=== PATIENT | female | born 1965 | race Caucasian/White ===

== ENCOUNTER 2020-09-13 14:01 | Inpatient (IN) | payer OTHER, SELFPAY ==
[2020-09-13 14:11] VITALS: BP 112/54; PULSE 64; RESP 14; TEMP 36.6; O2SAT 99; BMI 30.1
--- NOTE | 2020-09-13 14:24 | ED.PSYCH ---
HPI - Psych General Chief Complaint: Psychiatric Symptoms Stated Complaint: med reaction-crisis Time Seen by Provider: 09/13/20 14:06 Source: patient Mode of arrival: ambulatory History of Present Illness HPI Narrative: 55-year-old female with a past medical history of carpal tunnel, depression, presenting to the ED complaining of increased depression and suicidal ideations with plan to slit her wrists in the bath tub x a few weeks. Was urged to come to ED by her therapist. Reports recently discharge from her psychiatrist, found a new one who changed her medications. States was on Citalopram which was d/c'ed and started on Seroquel, which makes her excessively lethargic. Admits to smoking marijuana daily. Denies other illicit drugs or EtOH. Denies fever, chills, cough, chest pain, shortness of breath, HI complaint: suicidal ideation and feels depressed Related Data Home Medications Medication Instructions Recorded Confirmed citalopram 1 tab PO DAILY 09/13/20 09/13/20 lithium carbonate 3 cap PO BEDTIME 09/13/20 09/13/20 quetiapine 0.5 tab PO BID 09/13/20 09/13/20 Allergies Allergy/AdvReac Type Severity Reaction Status Date / Time No Known Allergies Allergy Verified 09/13/20 14:47 Review of Systems Review of Systems: Constitutional: No Fever, No Chills Cardiovascular: No Chest Pain, No SOB Respiratory: No Cough, No Dyspnea Gastrointestinal: + Nausea, No Vomiting, No Abdominal pain Musculoskeletal: No joint pain, No Myalgias, No Joint Swelling Skin: No Skin Lesions, No rash Psych: + Anxiety, + Depression, +SI, No HI/AH/VH, No Social Issues Yes all other systems are reviewed and are negative [facility] Past Medical History Attestation statement: The following information was validated with the patient. Medical History (Updated 09/13/20 @ 15:03 by HAY Carreno) Carpal tunnel syndrome Dental caries Depression Surgical History (Updated 09/13/20 @ 14:18 by Tommy Holder) H/O tubal ligation Social History Social History Alcohol intake: former Smoking Status: Former smoker Use of substances other than those prescribed or required for medical reasons: Yes Substance Use Type: Marijuana Substance Use Frequency: Daily Advance Directives: No Advance Directives Information Provided: No Physical Exam Vital Signs: Vital Signs: Last Vital Signs Temp 98 F 09/13/20 14:11 Pulse 64 09/13/20 14:11 Resp 14 09/13/20 14:11 BP 112/54 L 09/13/20 14:11 Pulse Ox 99 09/13/20 14:11 Body Mass Index 30.1 Const: General: cooperative, healthy appearing and comfortable Orientation/consciousness: patient oriented x3 Limitations: no limitations HENMT: Head: Yes normal to inspection Ears: hearing grossly normal bilaterally General nose exam: Normal external nose present Face and sinus: Yes normal facial exam Eyes: General: appearance normal, both eyes and all related structures EOM: EOMs intact bilaterally Neck: Neck: Yes normal visual inspection and Yes no meningeal signs Resp: Effort & Inspection: normal respiratory effort Cardio: Rate: regular rate GI: Inspection: Yes normal to inspection Skin: Rashes: no rashes Wounds: no wounds Neuro: General: patient oriented x3, gait normal, tone normal, moves all extremities and no meningeal signs Gait exam (Neuro): Normal gait present Extrem: General: Yes normal to inspection Psych: Appearance: grossly normal Speech and movement: Normal speech and movement present Affect: Sad affect present Attitude: cooperative Thought process: Normal thought process present Thought content: Suicidality present and no homicidality Insight: Good insight present (Psych) Judgement: Good judgement present (Psych) Course Course Course Narrative: -potassium slightly elevated at 5.3. P.o. Kayexalate ordered. Labs otherwise unremarkable -tox screen positive for THC -1800-- ED care transferred to ALYSSA Yap pending N consult MDM - Psych MDM Narrative Medical decision making narrative: 55-year-old female with a past medical history of carpal tunnel, depression, presenting to the ED complaining of increased depression and suicidal ideations with plan to slit her wrists in the bath tub x a few weeks. On exam VSS, NAD/well-appearing, physical exam as above. Concern for SI/depression and recent medication changes. Rule out organic causes Plan: Labs, JAMISON, crisis evaluation Medical Records Attestation: I reviewed the patient's medical records. Lab Data Attestation: I reviewed the patient's lab results. Result diagrams: 09/13/20 15:47 09/13/20 15:47 Labs: Lab Results 09/13/20 09/13/20 09/13/20 Range/Units 15:47 15:47 15:47 WBC 7.0 (4.8-10.8) X10*3/uL RBC 3.96 L (4.20-5.50) X10*6/uL Hgb 11.9 L (12.0-16.0) g/dl Hct 37.1 (37-47) % MCV 93.7 (80-98) fL MCH 30.1 (27.0-33.0) pg MCHC 32.1 (31.0-35.0) g/dl RDW 12.8 (11.0-16.0) % Plt Count 266 (160-400) X10*3/uL MPV 10.9 (9.4-12.3) fL Immature Gran % (Auto) 0.3 (0.0-0.4) % Neut % (Auto) 56.4 (45-73) % Lymph % (Auto) 28.5 (20-40) % Panola % (Auto) 8.3 (2-11) % Eos % (Auto) 5.8 H (0-4) % Baso % (Auto) 0.7 (0-2) % Lymph # (Auto) 2.0 (1.2-4.9) X10*3/uL Panola # (Auto) 0.6 (0.1-1.2) X10*3/uL Eos # (Auto) 0.4 (0.0-0.4) X10*3/uL Baso # (Auto) 0.1 (0.0-0.2) X10*3/uL Abs Immat Gran (auto) 0.02 (0.00-0.03) X10*3/uL Absolute Neuts (auto) 3.9 (2.0-8.3) X10*3/uL Absolute Nucleated RBC 0.000 (0.0-0.012) X10*3/uL Nucleated RBC % (auto) 0.0 (0.0-0.2) /100WBC Sodium 142 (135-145) mmol/L Potassium 5.3 H (3.3-5.1) mmol/L Chloride 107 (96-108) mmol/L Carbon Dioxide 31 H (22-29) mmol/L Anion Gap 9 L (12-20) BUN 11 (9-16) mg/dL Creatinine 0.75 (0.5-1.4) mg/dL Estim Creat Clear Calc 85.3 Estimated GFR > 60 Random Glucose 84 (60-115) mg/dL Calcium 9.6 (8.4-10.2) mg/dL Total Bilirubin 0.4 (0.0-1.0) mg/dL Direct Bilirubin < 0.2 (0.0-0.5) mg/dL AST 15 (5-31) U/L ALT 10 (0-31) U/L Alkaline Phosphatase 78 (39-117) U/L Total Protein 6.7 (6.5-8.0) g/dL Albumin 4.1 (3.5-5.0) g/dL Urine Opiates Screen (Not Detect) Ur Barbiturates Screen (Not Detect) Ur Phencyclidine Scrn (Not Detect) Ur Amphetamines Screen (Not Detect) U Benzodiazepines Scrn (Not Detect) Kurten (0.60-1.20) mmol/L Urine Cocaine Screen (Not Detect) U Marijuana (THC) Screen (Not Detect) COVID-19 (FRANK) Negative (Negative) COVID-19 Clin Com See Note 09/13/20 09/13/20 Range/Units 15:47 15:47 WBC (4.8-10.8) X10*3/uL RBC (4.20-5.50) X10*6/uL Hgb (12.0-16.0) g/dl Hct (37-47) % MCV (80-98) fL MCH (27.0-33.0) pg MCHC (31.0-35.0) g/dl RDW (11.0-16.0) % Plt Count (160-400) X10*3/uL MPV (9.4-12.3) fL Immature Gran % (Auto) (0.0-0.4) % Neut % (Auto) (45-73) % Lymph % (Auto) (20-40) % Panola % (Auto) (2-11) % Eos % (Auto) (0-4) % Baso % (Auto) (0-2) % Lymph # (Auto) (1.2-4.9) X10*3/uL Panola # (Auto) (0.1-1.2) X10*3/uL Eos # (Auto) (0.0-0.4) X10*3/uL Baso # (Auto) (0.0-0.2) X10*3/uL Abs Immat Gran (auto) (0.00-0.03) X10*3/uL Absolute Neuts (auto) (2.0-8.3) X10*3/uL Absolute Nucleated RBC (0.0-0.012) X10*3/uL Nucleated RBC % (auto) (0.0-0.2) /100WBC Sodium (135-145) mmol/L Potassium (3.3-5.1) mmol/L Chloride (96-108) mmol/L Carbon Dioxide (22-29) mmol/L Anion Gap (12-20) BUN (9-16) mg/dL Creatinine (0.5-1.4) mg/dL Estim Creat Clear Calc Estimated GFR Random Glucose (60-115) mg/dL Calcium (8.4-10.2) mg/dL Total Bilirubin (0.0-1.0) mg/dL Direct Bilirubin (0.0-0.5) mg/dL AST (5-31) U/L ALT (0-31) U/L Alkaline Phosphatase (39-117) U/L Total Protein (6.5-8.0) g/dL Albumin (3.5-5.0) g/dL Urine Opiates Screen Not Detected (Not Detect) Ur Barbiturates Screen Not Detected (Not Detect) Ur Phencyclidine Scrn Not Detected (Not Detect) Ur Amphetamines Screen Not Detected (Not Detect) U Benzodiazepines Scrn Not Detected (Not Detect) Kurten 0.72 (0.60-1.20) mmol/L Urine Cocaine Screen Not Detected (Not Detect) U Marijuana (THC) Screen POSITIVE H (Not Detect) COVID-19 (FRANK) (Negative) COVID-19 Clin Com Discharge Plan Discharge Clinical Impression: Depression, Suicidal ideations Prescriptions: No Action quetiapine 25 mg tablet 0.5 tab PO BID RF: 0 citalopram 20 mg tablet 1 tab PO DAILY RF: 0 lithium carbonate 300 mg capsule 3 cap PO BEDTIME RF: 0
--- NOTE | 2020-09-13 15:01 | PC.NURSE ---
PT reports that she has had a few medication changes that are not helping her depression. Pt reports that she lost her prescriber and after finding a new one was placed on seroquel, PT states that the seroquel is making her too sedated. PT reports the medication that is the most helpful for her is lithium that she has been on for some time and is compliant with. PT is irritable but cooperative, pt states she just wants help.
--- NOTE | 2020-09-13 15:01 | MHC.CARE ---
Patient's therapist called this morning, said patient has Bipolar D/O undergoing medication changes and struggling, she is recommending inpatient hospitalization. Renetta Perez [phone] can be reached after 6pm for additional information if needed.
[2020-09-13 15:54] LABS: MANUAL DIFF FLAG NO
[2020-09-13 15:57] LABS: Basophils Absolute Auto 0.1 X10*3/uL (0.0-0.2); Basophils Percent Auto 0.7 % (0-2); Eosinophils Absolute Auto 0.4 X10*3/uL (0.0-0.4); Eosinophils Percent Auto 5.8 % (0-4); Hematocrit 37.1 % (37-47); Hemoglobin 11.9 g/dl (12.0-16.0); Imm Gran Abs Auto 0.02 X10*3/uL (0.00-0.03); Imm Gran Pct Auto 0.3 % (0.0-0.4); Lymphocytes Percent Auto 28.5 % (20-40); Mean Corpuscular HGB Conc 32.1 g/dl (31.0-35.0); Mean Corpuscular Hemoglobin 30.1 pg (27.0-33.0); Mean Corpuscular Volume 93.7 fL (80-98); Mean Platelet Volume 10.9 fL (9.4-12.3); Monocytes Absolute Auto 0.6 X10*3/uL (0.1-1.2); Monocytes Percent Auto 8.3 % (2-11); Neutrophils Absolute Auto 3.9 X10*3/uL (2.0-8.3); Neutrophils Percent Auto 56.4 % (45-73); Platelet Count 266 X10*3/uL (160-400); Red Blood Count 3.96 X10*6/uL (4.20-5.50); Red Cell Distribution Width 12.8 % (11.0-16.0)
[2020-09-13 16:14] LABS: COVID-19 Test Negative (Negative); IDNOW Serial# 9DD0AD1C
[2020-09-13 16:15] LABS: Lithium 0.72 mmol/L (0.60-1.20)
[2020-09-13 16:24] LABS: Amphetamine Screen Urine Not Detected (Not Detect); Barbiturates, Urine Not Detected (Not Detect); Benzodiazepines Screen Urine Not Detected (Not Detect); Cannabinoid Screen Urine POSITIVE (Not Detect); Cocaine Screen Urine Not Detected (Not Detect); Opiate Screen Urine Not Detected (Not Detect); Phencyclidine Screen Urine Not Detected (Not Detect)
[2020-09-13 16:32] LABS: Alanine Aminotransferase 10 U/L (0-31); Albumin Level 4.1 g/dL (3.5-5.0); Alkaline Phosphatase 78 U/L (39-117); Anion Gap 9 (12-20); Aspartate Amino Transferase 15 U/L (5-31); Bilirubin Direct < 0.2 mg/dL (0.0-0.5); Bilirubin Total 0.4 mg/dL (0.0-1.0); Blood Urea Nitrogen 11 mg/dL (9-16); Calcium 9.6 mg/dL (8.4-10.2); Carbon Dioxide 31 mmol/L (22-29); Chloride 107 mmol/L (96-108); Creatinine Clr Calc Pharmacy 85.3; Estimated Glomerular Filt Rate > 60; Glucose Random 84 mg/dL (60-115); Potassium 5.3 mmol/L (3.3-5.1); Sodium 142 mmol/L (135-145); Total Protein 6.7 g/dL (6.5-8.0)
[2020-09-13 18:12] VITALS: BP 104/69; PULSE 62; RESP 20; TEMP 36.6; O2SAT 97
[2020-09-13] MEDS: Sodium Polystyrene Sulfon/Sorb 15 GM/60 ML ORAL.SUSP PO (18:14)
[2020-09-13] MEDS: LORazepam 1 MG TABLET PO (19:11)
--- NOTE | 2020-09-13 19:44 | PC.NURSE ---
Report received. PT was anxious and being set off by other patients in the pod. PT able to be calmed and then received a one time dose of Ativan. PT is in the room talking with CARE team.
[2020-09-13] MEDS: QUEtiapine Fumarate 25 MG TABLET 12.5 MG PO (20:52)
[2020-09-13] MEDS: Lithium Carbonate 300 MG CAPSULE 900 MG PO (20:53)
[2020-09-13] MEDS: Escitalopram Oxalate 10 MG TABLET PO (20:54)
--- NOTE | 2020-09-13 21:58 | MHC.CARE ---
CARE team evaluated pt with plan for inpt psychiatric admission. Pt will remain in ED until placement is secured. Pt is agreeable for admission, however has been placed on a section 12 due to level of risk for harm to self evidenced by an endorsement of suicidal ideation with plan.
[2020-09-14 08:30] VITALS: BP 97/55; PULSE 63; RESP 16; TEMP 36.6; O2SAT 97
[2020-09-14] MEDS: QUEtiapine Fumarate 25 MG TABLET 12.5 MG PO ×2 (09:04→18:49)
[2020-09-14] MEDS: LORazepam 1 MG TABLET 2 MG PO ×2 (09:48→18:44)
--- NOTE | 2020-09-14 09:48 | PC.NURSE ---
pt very agitated said she will take ativan by mouth, ativan 2mg ordered but pt will only take ativan 1mg at this time, she states she only takes ativan 1mg at home
[2020-09-14 10:00] VITALS: RESP 16
[2020-09-14 13:51] VITALS: RESP 16
--- NOTE | 2020-09-14 13:52 | PC.NURSE ---
pt continues to sleep at this time. resp even and unlabored. pt awaiting bed on m5 told no bed available today.
--- NOTE | 2020-09-14 14:46 | MHC.CARE ---
CARE team called [facility] at 1400 to amend the auth as a bed is not available at this time. By 1445 t/w was informed that this cannot be amended based on an initial auth secured for placement to [facility] today. There is no female bed available today and this auth will now require further review from the team at [facility] per Lorraine who stated CARE team will be called back later today when resolved or with an answer.
--- NOTE | 2020-09-14 14:58 | PC.NURSE ---
Report received. Pt in bed, asleep at current. No signs of distress. Respirations even and unlabored.
--- NOTE | 2020-09-14 17:12 | PC.NURSE ---
Pt resting in bed at current, no complaints at this time
--- NOTE | 2020-09-14 18:33 | PC.NURSE ---
Pt demanding HS meds be given to her immediately, increasing agitation when told the RN would have to ask the provider. Swearing at RN, calling RN a bitch , demanding ativan. Provider, Marely, notified.
[2020-09-14] MEDS: Lithium Carbonate 300 MG CAPSULE 900 MG PO (18:43)
[2020-09-14] MEDS: Escitalopram Oxalate 10 MG TABLET PO (18:44)
--- NOTE | 2020-09-14 19:03 | MHC.CARE ---
[facility] rehabilitation caseworker calls at 1650. He states that this issue with pt's auth is still not resolved. CARE Team explains that there is no bed available to pt at this time. CARE Team will call shaheen back after mental status update this evening. [phone]
--- NOTE | 2020-09-14 21:00 | PC.NURSE ---
Patient in bed appears resting quietly, no distress at this time reported, patient was agitated after seeing care team, will continue to monitor.
[2020-09-15] VITALS (8 sets, daily range): BP systolic 96–101; BP diastolic 55–63; PULSE 63–70; RESP 17–22; TEMP 36.1–37.1; O2SAT 97–98
--- NOTE | 2020-09-15 07:10 | PC.NURSE ---
Report received from CHACHO Oliver. Pt resting, resp unlabored
--- NOTE | 2020-09-15 07:57 | PC.NURSE ---
Pt awake, very irritable, swearing, stating that this is not 'f...therapeutic' and that she has been here since yesterday with nothing to do. Pt offered coloring activities, jigsaw puzzles, etc. Pt declined all at this time.
[2020-09-15] MEDS: QUEtiapine Fumarate 25 MG TABLET 12.5 MG PO ×2 (08:21→20:36)
--- NOTE | 2020-09-15 13:29 | PC.NURSE ---
patient was offered ativan pt refused ativan and stated she did not want it at this time. patient was also asking for her belongings- specifically her cell phone and chap stick, pt stated I am a grown up and I am able to use these items patient became frustrated and went back to her room yelling this is NOT therapeutic .
[2020-09-15] MEDS: LORazepam 1 MG TABLET 2 MG PO ×2 (14:29→20:37)
--- NOTE | 2020-09-15 14:49 | PC.NURSE ---
Pt continues to be very agitated, screaming in her room, swearing at staff, stating 'this is torture, this is not therapeutic, you all should be ashamed of yourself.' Pt demanding coffee, phone, etc, screaming at staff when unable to get what she wants when she wants. care team called to update re ;pt statements and behavior.
[2020-09-15] MEDS: LORazepam 1 MG TABLET PO (16:10)
[2020-09-15] MEDS: QUEtiapine Fumarate 50 MG TABLET PO (16:10)
--- NOTE | 2020-09-15 16:54 | PC.NURSE ---
Pt less agitated. M5 aware of psych consult order but life consultant has left- will await call from electronic heat seal operator MD. Pt aware.
--- NOTE | 2020-09-15 17:56 | P.EN_ITS ---
Event Note Date of Service: 09/15/20 Event Note: PATIENT'S CASE REVIEWED WITH PSYCHIATRIC NURSE IN THE [facility]. PATIENT WITH BIPOLAR DISORDER SHAWN IRRITABILITY AND AGGRESSION. PATIENT AGREEABLE TO STARTING DEPAKOTE 250 B.I.D. LIVER FUNCTION TESTS WITHIN NORMAL LIMITS. WILL ADD SEROQUEL 25 Q.2H P.R.N. ANXIETY AGITATION LITHIUM LEVEL 0.7 WOULD HOLD CITALOPRAM SECONDARY TO WHAT APPEARS TO BE MANIC AGITATION AND INSTABILITY. PATIENT GOOD CANDIDATE FOR INPATIENT ADMISSION
--- NOTE | 2020-09-15 17:59 | PC.NURSE ---
Spoke with Dr. Espinal- medications ordered, pt aware and in agreement with plan. Pt currently resting, pt mildly drowsy but easily awakened, pleasant.
--- NOTE | 2020-09-15 18:15 | MHC.CARE ---
CARE Team speaks with Mal from [facility], . Mal reports that [facility] has not started a bedsearch and will not be able to start one until tomorrow. He reports that if pt is placed tomorrow, 09/16/20, they can update the current authorization, however, if pt is not placed 09/16/20, a new authorization will need to be completed.
--- NOTE | 2020-09-15 18:36 | PC.NURSE ---
Pt awake briefly, returned to room, no concers reported, resting, resp unlabored.
--- NOTE | 2020-09-15 19:01 | PC.NURSE ---
Spoke w/ Dr Espinal re: lab order depakote nlevel- per Dr Espinal because pt is not taking Depakote currently, lab does not need to be drawn.
[2020-09-15] MEDS: Divalproex Sodium ER 250 MG TAB.ER.24H PO (20:35)
[2020-09-15] MEDS: Lithium Carbonate 300 MG CAPSULE 900 MG PO (20:36)
[2020-09-15] MEDS: QUEtiapine Fumarate 25 MG TABLET PO (20:37)
--- NOTE | 2020-09-15 20:58 | PC.NURSE ---
Patient compliant with her HS PO medication, VSS, Care team completed MSU, no change in disposition, no distress reported, will continue to monitor.
--- NOTE | 2020-09-16 00:43 | MHC.CARE ---
Bedsearch Note: An extensive state wide bedsearch has been exhausted with the following results: [facility] Full [facility] Full, anticipating 2 d/c tomorrow, charge preparation technician, Fidelina aware of pt boarding in ED [facility] Full [facility] Full [facility] Full [facility] Full [facility] Full [facility]- not currently accepting [place] residents [facility] Full [facility] Full [facility] Full [facility] Full [facility]- referral faxed, confirmed fax was recieved. CARE Team will follow up with them to see if they can accept pt. [facility] Full per USMAN. left [facility] Full [facility]- referral faxed, confirmed fax was received, reviewing for admissions tomorrow, CARE Team will call to follow up [facility] Full per KATALINA, left [facility] Full [facility] [id number] Full [facility] Full per KATALINA, left [facility] Full [facility] Full [facility] Full [facility] Full [facility] Full [facility] Full [facility] Full [facility]. Full [facility] Full [facility] Full [facility] Full [facility] Full [facility] Full anjel, yun w/ unit, they expect d/c tomorrow, CARE Team to call and follow up in [facility] Full [facility] Full [facility] Full [facility] Full [facility] Full, no adult d/c tomorrow [facility] Full [facility] Full
--- NOTE | 2020-09-16 07:15 | PC.NURSE ---
Report received from CHACHO Oliver. Pt resting, resp unlabored.
[2020-09-16 08:00] VITALS: RESP 18
[2020-09-16] MEDS: QUEtiapine Fumarate 25 MG TABLET 12.5 MG PO ×2 (09:30→22:01)
[2020-09-16] MEDS: Divalproex Sodium ER 250 MG TAB.ER.24H PO ×2 (09:32→22:01)
[2020-09-16 12:37] VITALS: BP 116/60; PULSE 75; RESP 16; TEMP 36.7; O2SAT 97
--- NOTE | 2020-09-16 12:44 | PC.NURSE ---
Pt pleasant, apologetic for behavior yesterday. Reports feeling 'sedated ' from medications given but feels this is not a concern at this time. Pt aware that she has been admitted to , no concerns reported.
--- NOTE | 2020-09-16 13:10 | PC.NURSE ---
Report given to CHACHO Wylie M5.
[2020-09-16] MEDS: LORazepam 1 MG TABLET 2 MG PO (14:20)
--- NOTE | 2020-09-16 14:26 | PC.NURSE ---
Pt approached staff, tearful , requesting ativan for a sudden increase in anxiety. Pt states she was witching the news and became discouraged, stating 'everyone lies.'
--- NOTE | 2020-09-16 15:12 | PC.NURSE ---
Care team in to transfer pt to M5. Pt alert,l coopertaive w/ transfer. No concerns reported.
[2020-09-16 17:10] VITALS: BP 120/60; PULSE 65; TEMP 36.6
[2020-09-16] MEDS: QUEtiapine Fumarate 25 MG TABLET PO (17:35)
[2020-09-16] MEDS: Lithium Carbonate 300 MG CAPSULE 900 MG PO (22:01)
--- NOTE | 2020-09-17 00:37 | PC.ADMIT ---
A white female, aged 55 years,[facility] at 1455 following referral from CARE Team and [facility]. Pt has no previous admissions here, but has past history of past admissions for medication stabilization. Pt presented to [facility] ED at recommendation of her therapist secondary to worsening symptoms of depression over the past several months taht have been exacerbated by a recent med change. Pt has had a leave of absence from work since June 2020 due to increased irritability and lashing out verbally at co-workers and customers. Pt endorsed suicidal ideation in ED with a plan but without intent. Pt reports hypersomnia, no motivation, decreased appetite, decreased frustration tolerance and increased irritability. Pt was tearful and labile during assessment in ED. Pt expressed remorse for behavior toward staff in the ED and wanted to say she was sorry. Pt has a psychiatrist and a therapist in the community. This Truck Driver Rubbish Collector (DARIN) met with pt briefly in kitchen around 1700. Pt was labile, became agitated and angry. TW was informing pt of her legal rights in regard to a Conditional Voluntary admission and how to revoke that with a 3-day notice. Pt became very angry, said she was triggered , that TW was not listening to her and called TW a misogynist . Pt stated I don't trust you . Pt asked for PRN medications, but refused to accept them from TW; PRN seroquel was administered by another RN with some good effect. TW attempted to meet again with pt at 1920. Pt continued to refuse to speak with TW. Pt was willing to take HS scheduled medications from another nurse. Pt expressed to other staff she does not have SI at this time and can seek out staff for help. Pt works at a marijuana dispensary and uses marijuana daily. JAMISON was positive only for marijuana. Medical issues include: carpal tunnel and dental issues, history of tubal ligation. Pt was put on 5 minute safety checks with an unlocked bathroom upon arrival. [id number] done and admission orders obtained. Pt is resting in room at this time.
[2020-09-17] MEDS: LORazepam 1 MG TABLET 2 MG PO (01:22)
[2020-09-17] MEDS: hydrOXYzine HCL 25 MG TABLET PO (01:22)
[2020-09-17] MEDS: Acetaminophen 325 MG TABLET 650 MG PO (01:22)
[2020-09-17 06:05] VITALS: BP 110/67; PULSE 64; RESP 16; TEMP 36.3; O2SAT 99
[2020-09-17] MEDS: QUEtiapine Fumarate 25 MG TABLET 12.5 MG PO (08:56)
[2020-09-17] MEDS: Divalproex Sodium ER 250 MG TAB.ER.24H PO ×2 (09:01→20:35)
[2020-09-17 09:43] LABS: Free T4 (Free Thyroxine) 0.83 ng/dL (0.71-1.85); Thyroid Stimulating Hormone 1.93 uIU/mL (0.32-4.0)
[2020-09-17 18:00] VITALS: BP 123/54; PULSE 73; TEMP 36.3
[2020-09-17] MEDS: LORazepam 1 MG TABLET PO (18:18)
[2020-09-17] MEDS: QUEtiapine Fumarate 50 MG TABLET PO (20:35)
[2020-09-17] MEDS: Lithium Carbonate 300 MG CAPSULE 900 MG PO (20:35)
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
[2020-09-18 06:10] VITALS: BP 100/59; PULSE 71; RESP 16; TEMP 36.6; O2SAT 98
[2020-09-18] MEDS: Divalproex Sodium ER 250 MG TAB.ER.24H PO (08:50)
[2020-09-18 09:09] LABS: Lithium 1.18 mmol/L (0.60-1.20)
[2020-09-18 09:19] LABS: Alanine Aminotransferase 9 U/L (0-31); Albumin Level 4.2 g/dL (3.5-5.0); Alkaline Phosphatase 73 U/L (39-117); Anion Gap 10 (12-20); Aspartate Amino Transferase 13 U/L (5-31); Bilirubin Total 0.5 mg/dL (0.0-1.0); Blood Urea Nitrogen 13 mg/dL (9-16); Calcium 9.4 mg/dL (8.4-10.2); Carbon Dioxide 29 mmol/L (22-29); Chloride 109 mmol/L (96-108); Cholesterol 278 mg/dL; Creatinine Clr Calc Pharmacy 85.3; Estimated Glomerular Filt Rate > 60; Glucose Fasting 82 mg/dL (60-99); HDL Cholesterol 59 mg/dL; LDL Cholesterol Calculated 207 mg/dl; Potassium 4.1 mmol/L (3.3-5.1); Sodium 144 mmol/L (135-145); Total Protein 6.8 g/dL (6.5-8.0); Triglycerides 63 mg/dL
[2020-09-18 09:37] LABS: Valproate 45.8 mcg/mL (50.0-100.0)
--- NOTE | 2020-09-18 13:28 | HO.PSYCHPN ---
Subjective Subjective Date of Service: 09/18/20 Reason For Visit: Major Depression R/O Bipolar Disorder Subjective Notes: Conditional Voluntary Interim History: Pt has been less reactive denies active si gives hx of add and reactivity quite sedated in the am Medication Compliance: Yes Side effects from medications: Yes Mental Status Exam Mental Status Exam Patient Appearance: Appropriate Patient Orientation: Person, Place, Time and Situation Level of Consciousness: Awake Patient Behavior: Appropriate Mood Description: Depressed, Anxious and Apprehensive Affect Description: Depressed Ability to Follow Directions: Excellent Speech Pattern: Appropriate Memory Description: Intact Hallucinations: None Delusions: Not Present Thought Process: Intact Thought Content: positive for Suicidal Ideation (denies active thoughts ) and negative for Homicidal Ideation Depressive Symptoms: Increased Anxiety, Diff. Making Decisions, Difficulty Sleeping, Significant Weight Loss, Thoughts of /Suicide and Difficulty Concentrating Abnormal Motor Activity Signs and Symptoms: Agitation Judgement and Insight: improved insight Diagnostics Vital Signs (24Hr): Vital Signs - 24 hr 09/17/20 18:00 09/18/20 06:10 Temperature 97.4 F 98 F Pulse Rate 73 71 Respiratory Rate 16 Blood Pressure 123/54 L 100/59 L Pulse Oximetry 98 Body Mass Index 30.1 Labs Results: 09/13/20 15:47 09/18/20 08:27 Labs: Laboratory Results - last 48 hr 09/17/20 09/18/20 09/18/20 08:28 08:27 08:27 Sodium 144 Potassium 4.1 D Chloride 109 H Carbon Dioxide 29 Anion Gap 10 L BUN 13 Creatinine 0.75 Estim Creat Clear Calc 85.3 Estimated GFR > 60 Fasting Glucose 82 Calcium 9.4 Total Bilirubin 0.5 AST 13 ALT 9 Alkaline Phosphatase 73 Total Protein 6.8 Albumin 4.2 Triglycerides 63 Cholesterol 278 LDL Cholesterol, Calc 207 HDL Cholesterol 59 TSH 1.93 Free T4 0.83 Valproic Acid 45.8 L [place] 1.18 Medications Medications Current Medications Generic Name Dose Route Start Last Admin Trade Name Freq PRN Reason Stop Dose Admin Acetaminophen 650 mg 09/16/20 14:45 09/17/20 01:22 Acetaminophen 325 Mg Tablet PO 650 mg Q6H PRN Administration Headache/Pain Mild Scale (1-3) Al Hydroxide/Mg Hydroxide 30 ml 09/16/20 14:45 Magnesium Hydrox/Alum Hydrox 30 Ml Oral.Susp PO Q6H PRN Heartburn/Nausea Divalproex Sodium 500 mg 09/18/20 21:00 Divalproex Sodium 500 Mg Tablet.Dr PO BEDTIME PATSY Hydroxyzine HCl 25 mg 09/16/20 14:45 09/17/20 01:22 Hydroxyzine Hcl 25 Mg Tablet PO 25 mg BEDTIME PRN Administration Anxiety [place] Carbonate 900 mg 09/13/20 21:00 09/17/20 20:35 [place] Carbonate 300 Mg Capsule PO 900 mg BEDTIME PATSY Administration Lorazepam 1 mg 09/17/20 15:38 09/17/20 18:18 Lorazepam 1 Mg Tablet PO 1 mg Q6H PRN Administration anxiety Magnesium Hydroxide 30 ml 09/16/20 14:45 Milk Of Magnesia 30 Ml Oral.Susp PO DAILY PRN Constipation Quetiapine Fumarate 25 mg 09/15/20 17:51 09/16/20 17:35 Quetiapine Fumarate 25 Mg Tablet PO 25 mg Q2H PRN Administration Anxiety Quetiapine Fumarate 25 mg 09/18/20 21:00 Quetiapine Fumarate 25 Mg Tablet PO BEDTIME PTASY Trazodone HCl 50 mg 09/16/20 14:45 Trazodone Hcl 50 Mg Tablet PO BEDTIME PRN Insomnia Allergies Allergies Allergy/AdvReac Type Severity Reaction Status Date / Time No Known Allergies Allergy Verified 09/13/20 14:47 Assessment & Plan Assessment & Plan (1) Bipolar II disorder, severe, depressed, with anxious distress: Status: Acute Code(s): F31.81 - Bipolar II disorder Assessment and Plan: lower seroquel change depakote to all hs consider strattera monitor safety Greater than 50% of the session was spent on counseling and/or coordination of care Reason for contiued inpatient stay Substantial Risk for: harm to self
[2020-09-18] MEDS: LORazepam 1 MG TABLET PO (17:11)
[2020-09-18 18:00] VITALS: BP 105/57; PULSE 72; TEMP 36.3
[2020-09-18] MEDS: QUEtiapine Fumarate 25 MG TABLET PO ×2 (18:29→20:05)
[2020-09-18 19:17] LABS: Influenza A PCR NEGATIVE (Negative); Influenza B PCR NEGATIVE (Negative); Resp Syncy Virus RNA Qual PCR NEGATIVE (Negative); SARS COV2 PCR INHOUSE NEGATIVE (Negative)
[2020-09-18] MEDS: Divalproex Sodium 500 MG TABLET.DR PO (19:56)
[2020-09-18] MEDS: Betamethasone Dip Aug 0.05% Cr 15 GM TUBE 1 APPL TOPICAL (19:56)
[2020-09-18] MEDS: Lithium Carbonate 300 MG CAPSULE 900 MG PO (19:56)
[2020-09-18] MEDS: traZODone HCL 50 MG TABLET PO (23:26)
--- NOTE | 2020-09-19 | ECG_ITS ---
Test Reason : PALPITATIONS Blood Pressure : / mmHG Vent. Rate : 057 BPM Atrial Rate : 057 BPM P-R Int : 162 ms QRS Dur : 086 ms QT Int : 410 ms P-R-T Axes : 065 007 -27 degrees QTc Int : 399 ms Sinus bradycardia Nonspecific ST and T wave abnormality Abnormal ECG No previous ECGs available Referred By: Betzaida Norris Electronically Signed By:Valeriy Valerio
[2020-09-19] MEDS: hydrOXYzine HCL 25 MG TABLET PO (03:15)
[2020-09-19 04:36] LABS: Folate 9.8 ng/mL (> or = 4.0); Vitamin B12 548 pg/mL (200-900)
[2020-09-19 06:05] VITALS: BP 115/57; PULSE 71; RESP 16; TEMP 36.6; O2SAT 98
[2020-09-19] MEDS: Betamethasone Dip Aug 0.05% Cr 15 GM TUBE 1 APPL TOPICAL ×2 (08:38→20:22)
--- NOTE | 2020-09-19 09:50 | PC.NURSE ---
pt is not a nicotine user/smoker. pt does not need nicotine replacement. does not need a smoking consult.
[2020-09-19 12:21] VITALS: BP 110/58; PULSE 56
--- NOTE | 2020-09-19 13:40 | P.PNPSI_ITS ---
Subjective Subjective Date of Service: 09/19/20 Reason For Visit: Major Depression R/O Bipolar Disorder Interim History: Pt reports getting more irritable, low frustration tolerance, was asked to go home from work last week due to her argumentative behavior. She denies SI/HI. She reports having difficulty organizing and planning, which she states has been detrimental in maintaining a stable life. She states she does like her work and wouldn't want to lose this job. She reports fair sleep. She uses cannabis, which she thinks helps her calm down. Review of Systems Review of Systems Constitutional: No Fever, No Chills Cardiovascular: No Chest Pain, No SOB Respiratory: No Cough, No Dyspnea Gastrointestinal: + Nausea, No Vomiting, No Abdominal pain Musculoskeletal: No joint pain, No Myalgias, No Joint Swelling Skin: No Skin Lesions, No rash Psych: + Anxiety, + Depression, +SI, No HI/AH/VH, No Social Issues Yes all other systems are reviewed and are negative Mental Status Exam Mental Status Exam Narrative: Appearance: casually groomed, somewhat disheveled, poor hygiene, in NAD but feeling dizzy Behavior: calm, cooperative Psychomotor: no agitation or retardation noted Speech: clear, normal rate/rhythm/volume, spontaneous TP: tangential TC: no signs of psychosis, Mood: irritable Affect:restless AH/VH:none Delusions:none Insight/judgment:fair x 2. Memory/cog: alert, oriented x 3. grossly intact to conversational testing. Diagnostics Vital Signs (24Hr): Vital Signs - 24 hr 09/18/20 18:00 09/19/20 06:05 09/19/20 12:21 Temperature 97.4 F 97.9 F Pulse Rate 72 71 56 Respiratory Rate 16 Blood Pressure 105/57 L 115/57 L 110/58 L Pulse Oximetry 98 Body Mass Index 30.1 Labs Results: 09/13/20 15:47 09/18/20 08:27 Labs: Laboratory Results - last 48 hr 09/17/20 09/18/20 09/18/20 08:29 08:27 08:27 Sodium 144 Potassium 4.1 D Chloride 109 H Carbon Dioxide 29 Anion Gap 10 L BUN 13 Creatinine 0.75 Estim Creat Clear Calc 85.3 Estimated GFR > 60 Fasting Glucose 82 Calcium 9.4 Total Bilirubin 0.5 AST 13 ALT 9 Alkaline Phosphatase 73 Total Protein 6.8 Albumin 4.2 Triglycerides 63 Cholesterol 278 LDL Cholesterol, Calc 207 HDL Cholesterol 59 Vitamin B12 548 Folate 9.8 Valproic Acid 45.8 L [place] 1.18 Coronavirus (PCR) Influenza Type A (PCR) Influenza Type B (PCR) RSV RNA Qual (PCR) 09/18/20 18:26 Sodium Potassium Chloride Carbon Dioxide Anion Gap BUN Creatinine Estim Creat Clear Calc Estimated GFR Fasting Glucose Calcium Total Bilirubin AST ALT Alkaline Phosphatase Total Protein Albumin Triglycerides Cholesterol LDL Cholesterol, Calc HDL Cholesterol Vitamin B12 Folate Valproic Acid [place] Coronavirus (PCR) NEGATIVE Influenza Type A (PCR) NEGATIVE Influenza Type B (PCR) NEGATIVE RSV RNA Qual (PCR) NEGATIVE Medications Medications Current Medications Generic Name Dose Route Start Last Admin Trade Name Freq PRN Reason Stop Dose Admin Acetaminophen 650 mg 09/16/20 14:45 09/17/20 01:22 Acetaminophen 325 Mg Tablet PO 650 mg Q6H PRN Administration Headache/Pain Mild Scale (1-3) Al Hydroxide/Mg Hydroxide 30 ml 09/16/20 14:45 Magnesium Hydrox/Alum Hydrox 30 Ml Oral.Susp PO Q6H PRN Heartburn/Nausea Betamethasone Dipropion Augmented 1 appl 09/18/20 21:00 09/19/20 08:38 Betamethasone Dip Aug 0.05% Cr 15 Gm Tube TOPICAL 1 appl BID PATSY Administration Protocol Divalproex Sodium 500 mg 09/18/20 21:00 09/18/20 19:56 Divalproex Sodium 500 Mg Tablet.Dr PO 500 mg BEDTIME PATSY Administration [place] Carbonate 900 mg 09/13/20 21:00 09/18/20 19:56 [place] Carbonate 300 Mg Capsule PO 900 mg BEDTIME PATSY Administration Lorazepam 1 mg 09/17/20 15:38 09/18/20 17:11 Lorazepam 1 Mg Tablet PO 1 mg Q6H PRN Administration anxiety Magnesium Hydroxide 30 ml 09/16/20 14:45 Milk Of Magnesia 30 Ml Oral.Susp PO DAILY PRN Constipation Quetiapine Fumarate 25 mg 09/15/20 17:51 09/18/20 18:29 Quetiapine Fumarate 25 Mg Tablet PO 25 mg Q2H PRN Administration Anxiety Quetiapine Fumarate 25 mg 09/18/20 21:00 09/18/20 20:05 Quetiapine Fumarate 25 Mg Tablet PO 25 mg BEDTIME PATSY Administration Trazodone HCl 50 mg 09/16/20 14:45 09/18/20 23:26 Trazodone Hcl 50 Mg Tablet PO 50 mg BEDTIME PRN Administration Insomnia Allergies Allergies Allergy/AdvReac Type Severity Reaction Status Date / Time No Known Allergies Allergy Verified 09/13/20 14:47 Assessment & Plan Assessment & Plan (1) Bipolar II disorder, severe, depressed, with anxious distress: Status: Acute Code(s): F31.81 - Bipolar II disorder Assessment and Plan: 1. continue [place] 900mg po qhs 2. Seroquel 3. continue ativan PRN Greater than 50% of the session was spent on counseling and/or coordination of care Reason for contiued inpatient stay Substantial Risk for: harm to self and inability to function
[2020-09-19] MEDS: LORazepam 1 MG TABLET PO (14:11)
[2020-09-19 17:46] VITALS: TEMP 36.6
[2020-09-19] MEDS: Lithium Carbonate ER 450 MG TABLET.ER 900 MG PO (20:22)
[2020-09-19] MEDS: Divalproex Sodium 500 MG TABLET.DR PO (20:23)
[2020-09-19] MEDS: QUEtiapine Fumarate 25 MG TABLET PO (20:23)
[2020-09-20 06:10] VITALS: BP 100/59; PULSE 61; RESP 16; TEMP 36.9; O2SAT 99
--- NOTE | 2020-09-20 08:12 | PC.NURSE ---
pt does not want to receive influenza vaccine during this admission. refused.
[2020-09-20] MEDS: Betamethasone Dip Aug 0.05% Cr 15 GM TUBE 1 APPL TOPICAL ×2 (08:27→20:29)
[2020-09-20] MEDS: LORazepam 1 MG TABLET PO ×3 (09:44→22:09)
--- NOTE | 2020-09-20 16:16 | P.PNPSI_ITS ---
Subjective Subjective Date of Service: 09/20/20 Reason For Visit: Major Depression R/O Bipolar Disorder Subjective Notes: Conditional Voluntary Interim History: Pt at times tearful but also irritable. She reports depressed mood, anhedonia, hopeless/helpless. She reports fair sleep, waking up at times. She reports passive suicidal ideation but denies plan or intent. She has been mostly in room. She reports dizziness, weakness. She has been mostly in bed. Medication Compliance: Yes Side effects from medications: No Attending Groups: No Review of Systems Review of Systems Constitutional: No Fever, No Chills Cardiovascular: No Chest Pain, No SOB Respiratory: No Cough, No Dyspnea Gastrointestinal: + Nausea, No Vomiting, No Abdominal pain Musculoskeletal: No joint pain, No Myalgias, No Joint Swelling Skin: No Skin Lesions, No rash Psych: + Anxiety, + Depression, +SI, No HI/AH/VH, No Social Issues Yes all other systems are reviewed and are negative Constitutional: Reports weakness Reports dizziness Cardiovascular: Reports lightheadedness and Reports slow heart rate Reports dizziness and Reports weakness Mental Status Exam Mental Status Exam Narrative: Appearance: casually groomed, somewhat disheveled, poor hygiene, in NAD but feeling dizzy Behavior: calm, cooperative Psychomotor: no agitation or retardation noted Speech: clear, normal rate/rhythm/volume, spontaneous TP: tangential TC: no signs of psychosis, Mood: irritable Affect:restless AH/VH:none Delusions:none Insight/judgment:fair x 2. Memory/cog: alert, oriented x 3. grossly intact to conversational testing. Diagnostics Vital Signs (24Hr): Vital Signs - 24 hr 09/19/20 17:46 09/20/20 06:10 Temperature 98 F 98.5 F Pulse Rate 61 Respiratory Rate 16 Blood Pressure 100/59 L Pulse Oximetry 99 Body Mass Index 30.1 Labs Results: 09/13/20 15:47 09/18/20 08:27 Labs: Laboratory Results - last 48 hr 09/17/20 09/18/20 08:29 18:26 Vitamin B12 548 Folate 9.8 Coronavirus (PCR) NEGATIVE Influenza Type A (PCR) NEGATIVE Influenza Type B (PCR) NEGATIVE RSV RNA Qual (PCR) NEGATIVE Medications Medications Current Medications Generic Name Dose Route Start Last Admin Trade Name Freq PRN Reason Stop Dose Admin Acetaminophen 650 mg 09/16/20 14:45 09/17/20 01:22 Acetaminophen 325 Mg Tablet PO 650 mg Q6H PRN Administration Headache/Pain Mild Scale (1-3) Al Hydroxide/Mg Hydroxide 30 ml 09/16/20 14:45 Magnesium Hydrox/Alum Hydrox 30 Ml Oral.Susp PO Q6H PRN Heartburn/Nausea Betamethasone Dipropion Augmented 1 appl 09/18/20 21:00 09/20/20 08:27 Betamethasone Dip Aug 0.05% Cr 15 Gm Tube TOPICAL 1 appl BID PATSY Administration Protocol Divalproex Sodium 500 mg 09/18/20 21:00 09/19/20 20:23 Divalproex Sodium 500 Mg Tablet.Dr PO 500 mg BEDTIME PATSY Administration Escitalopram Oxalate 10 mg 09/20/20 14:55 Escitalopram Oxalate 10 Mg Tablet PO DAILY PATSY [place] Carbonate 900 mg 09/19/20 21:00 09/19/20 20:22 [place] Carbonate Er 450 Mg Tablet.Er PO 900 mg BEDTIME PATSY Administration Lorazepam 1 mg 09/17/20 15:38 09/20/20 15:54 Lorazepam 1 Mg Tablet PO 1 mg Q6H PRN Administration anxiety Magnesium Hydroxide 30 ml 09/16/20 14:45 Milk Of Magnesia 30 Ml Oral.Susp PO DAILY PRN Constipation Quetiapine Fumarate 25 mg 09/15/20 17:51 09/18/20 18:29 Quetiapine Fumarate 25 Mg Tablet PO 25 mg Q2H PRN Administration Anxiety Quetiapine Fumarate 25 mg 09/18/20 21:00 09/19/20 20:23 Quetiapine Fumarate 25 Mg Tablet PO 25 mg BEDTIME PATSY Administration Trazodone HCl 50 mg 09/16/20 14:45 09/18/20 23:26 Trazodone Hcl 50 Mg Tablet PO 50 mg BEDTIME PRN Administration Insomnia Allergies Allergies Allergy/AdvReac Type Severity Reaction Status Date / Time No Known Allergies Allergy Verified 09/13/20 14:47 Assessment & Plan Assessment & Plan (1) Bipolar II disorder, severe, depressed, with anxious distress: Status: Acute Code(s): F31.81 - Bipolar II disorder Assessment and Plan: 1. continue [place] 900mg po qhs 2. Seroquel 3. continue ativan PRN Greater than 50% of the session was spent on counseling and/or coordination of care Reason for contiued inpatient stay Substantial Risk for: harm to self
[2020-09-20] MEDS: Escitalopram Oxalate 10 MG TABLET PO (16:29)
[2020-09-20 18:00] VITALS: BP 121/58; PULSE 71; TEMP 36.5
[2020-09-20] MEDS: Lithium Carbonate ER 450 MG TABLET.ER 900 MG PO (20:28)
[2020-09-20] MEDS: Divalproex Sodium 500 MG TABLET.DR PO (20:28)
[2020-09-20] MEDS: QUEtiapine Fumarate 25 MG TABLET PO (20:28)
[2020-09-21 06:00] VITALS: BP 118/59; PULSE 77; TEMP 36.2
[2020-09-21] MEDS: Escitalopram Oxalate 10 MG TABLET PO (08:42)
[2020-09-21] MEDS: Betamethasone Dip Aug 0.05% Cr 15 GM TUBE 1 APPL TOPICAL ×2 (09:41→21:20)
[2020-09-21] MEDS: Methylphenidate HCl 5 MG TABLET PO (13:59)
[2020-09-21 16:30] VITALS: BP 143/59; PULSE 91; TEMP 36.2
--- NOTE | 2020-09-21 17:21 | P.PNPSI_ITS ---
Subjective Subjective Date of Service: 09/21/20 Reason For Visit: Major Depression R/O Bipolar Disorder Interim History: Pt less irritable today but tearful. She reports she feels that providers in the past do not hear her. She minimizes to some extend mood dysregulation stating that she thinks is mostly attention deficit. We discussed that she does have elements of poor attention worsened by mood disorder. Pt also reports a dysthymic mood, with intermittent suicidal ideation. She is tearful when she talks about where she is in life and how she does not feel she ever reached her full potential. She continues to endorse feeling hopeless/helpless, anhedonia, passive suicidal ideation denies any intent but discloses plan of overdosing with medications. She has been mostly in her room, encouraged to attend groups. Review of Systems Review of Systems Constitutional: No Fever, No Chills Cardiovascular: No Chest Pain, No SOB Respiratory: No Cough, No Dyspnea Gastrointestinal: + Nausea, No Vomiting, No Abdominal pain Musculoskeletal: No joint pain, No Myalgias, No Joint Swelling Skin: No Skin Lesions, No rash Psych: + Anxiety, + Depression, +SI, No HI/AH/VH, No Social Issues Yes all other systems are reviewed and are negative Constitutional: Reports weakness Reports dizziness Cardiovascular: Reports lightheadedness and Reports slow heart rate Reports dizziness and Reports weakness Mental Status Exam Mental Status Exam Narrative: Appearance: casually groomed, somewhat disheveled, poor hygiene, in NAD but feeling dizzy Behavior: calm, cooperative Psychomotor: no agitation or retardation noted Speech: clear, normal rate/rhythm/volume, spontaneous TP: tangential TC: no signs of psychosis, Mood: irritable Affect:restless AH/VH:none Delusions:none Insight/judgment:fair x 2. Memory/cog: alert, oriented x 3. grossly intact to conversational testing. Diagnostics Vital Signs (24Hr): Vital Signs - 24 hr 09/20/20 18:00 09/21/20 06:00 Temperature 97.7 F 97.2 F Pulse Rate 71 77 Blood Pressure 121/58 L 118/59 L Body Mass Index 30.1 Labs Results: 09/13/20 15:47 09/18/20 08:27 Medications Medications Current Medications Generic Name Dose Route Start Last Admin Trade Name Freq PRN Reason Stop Dose Admin Acetaminophen 650 mg 09/16/20 14:45 09/17/20 01:22 Acetaminophen 325 Mg Tablet PO 650 mg Q6H PRN Administration Headache/Pain Mild Scale (1-3) Al Hydroxide/Mg Hydroxide 30 ml 09/16/20 14:45 Magnesium Hydrox/Alum Hydrox 30 Ml Oral.Susp PO Q6H PRN Heartburn/Nausea Betamethasone Dipropion Augmented 1 appl 09/18/20 21:00 09/21/20 09:41 Betamethasone Dip Aug 0.05% Cr 15 Gm Tube TOPICAL 1 appl BID PATSY Administration Protocol Divalproex Sodium 750 mg 09/21/20 21:00 Divalproex Sodium 250 Mg Tablet. PO BEDTIME PATSY Escitalopram Oxalate 10 mg 09/20/20 14:55 09/21/20 08:42 Escitalopram Oxalate 10 Mg Tablet PO 10 mg DAILY PATSY Administration [place] Carbonate 600 mg 09/21/20 21:00 [place] Carbonate 300 Mg Tablet PO BEDTIME PATSY Lorazepam 1 mg 09/17/20 15:38 09/20/20 22:09 Lorazepam 1 Mg Tablet PO 1 mg Q6H PRN Administration anxiety Magnesium Hydroxide 30 ml 09/16/20 14:45 Milk Of Magnesia 30 Ml Oral.Susp PO DAILY PRN Constipation Melatonin 6 mg 09/21/20 13:06 Melatonin 3 Mg Tablet PO BEDTIME PRN Sleep Methylphenidate HCl 5 mg 09/21/20 13:05 09/21/20 13:59 Methylphenidate Hcl 5 Mg Tablet PO 5 mg DAILY PATSY Administration Quetiapine Fumarate 25 mg 09/15/20 17:51 09/18/20 18:29 Quetiapine Fumarate 25 Mg Tablet PO 25 mg Q2H PRN Administration Anxiety Allergies Allergies Allergy/AdvReac Type Severity Reaction Status Date / Time No Known Allergies Allergy Verified 09/13/20 14:47 Assessment & Plan Assessment & Plan (1) Bipolar II disorder, severe, depressed, with anxious distress: Status: Acute Code(s): F31.81 - Bipolar II disorder Assessment and Plan: We discussed switching lithium to depakote per pt request as she does not think [place] has been helpful although notes that it may be helping more than she thinks as she has been on it for decades. We discussed adding low dose of ritalin for attention and for more severe depression, but pt understands that it can worsened irritability or it may be activating. continue lexapro taper. May consider latuda if her insurance covers it. Greater than 50% of the session was spent on counseling and/or coordination of care Reason for contiued inpatient stay Substantial Risk for: harm to self
[2020-09-21] MEDS: Divalproex Sodium 250 MG TABLET.DR 750 MG PO (21:08)
[2020-09-21] MEDS: Lithium Carbonate 300 MG TABLET 600 MG PO (21:09)
[2020-09-21] MEDS: LORazepam 1 MG TABLET PO (21:12)
[2020-09-21] MEDS: Melatonin 3 MG TABLET 6 MG PO (23:00)
[2020-09-21] MEDS: QUEtiapine Fumarate 25 MG TABLET PO (23:00)
[2020-09-22 06:10] VITALS: BP 112/53; PULSE 69; RESP 16; TEMP 36.9; O2SAT 99
[2020-09-22] MEDS: Methylphenidate HCl 5 MG TABLET PO (09:14)
[2020-09-22] MEDS: Escitalopram Oxalate 10 MG TABLET PO (09:14)
[2020-09-22] MEDS: Betamethasone Dip Aug 0.05% Cr 15 GM TUBE 1 APPL TOPICAL ×2 (09:44→20:29)
[2020-09-22 13:08] VITALS: BMI 28.7
[2020-09-22 13:14] VITALS: BP 126/77; PULSE 78
[2020-09-22 13:16] VITALS: BP 153/70; PULSE 87
[2020-09-22 13:18] VITALS: BP 121/58; PULSE 72
--- NOTE | 2020-09-22 14:07 | PM.EVENT ---
Event Note Date of Service: 09/22/20 Event Note: Asked to see the patient for complaints of dizziness and weakness. Patient seen and examined on M5. Patients RN bedside. Patient reports long standing dizziness, for many years. She reports that she feels this way when she gets up suddenly from a seated position. Denies any syncope. Denies any vertigo symptoms. Reports she has been evaluated for Meniere's disease in the past and was told it was negative. Reports tinnitus for many years. Orthostatic vitals reviewed -- did have a drop from seated to standing positive, but remained normtensive in the standing position. Although this may explain her symptoms, unlikely for her to orthostatic syncope at a normal BP. Explained to the patient that she should remained seated for several minutes from a supine position and slowly get up. Additionally advised her to drink a glass of water in the morning before standing up. At this time, no further work up / assessments are needed. Please reconsult with any questions.
--- NOTE | 2020-09-22 17:47 | P.PNPSI_ITS ---
Subjective Subjective Date of Service: 09/22/20 Reason For Visit: Major Depression R/O Bipolar Disorder Interim History: Pt continues to endorse depressed mood, anhedonia, hopeless/helpless, tearful at times. She reports rest of the day yesterday was better in that she did not need PRN for irritability. She continues to endorse passive suicidal ideation, reports plan to OD but agrees to let staff know if not feeling safe in the unit. She reports fair sleep, did wake up few times at n ight. She reports less dizziness. Review of Systems Review of Systems Constitutional: No Fever, No Chills Cardiovascular: No Chest Pain, No SOB Respiratory: No Cough, No Dyspnea Gastrointestinal: + Nausea, No Vomiting, No Abdominal pain Musculoskeletal: No joint pain, No Myalgias, No Joint Swelling Skin: No Skin Lesions, No rash Psych: + Anxiety, + Depression, +SI, No HI/AH/VH, No Social Issues Yes all other systems are reviewed and are negative Constitutional: Reports weakness Reports dizziness Cardiovascular: Reports lightheadedness and Reports slow heart rate Reports dizziness and Reports weakness Mental Status Exam Mental Status Exam Narrative: Appearance: casually groomed, somewhat disheveled, poor hygiene, in NAD but feeling dizzy Behavior: calm, cooperative Psychomotor: no agitation or retardation noted Speech: clear, normal rate/rhythm/volume, spontaneous TP: tangential TC: no signs of psychosis, Mood: irritable Affect:restless AH/VH:none Delusions:none Insight/judgment:fair x 2. Memory/cog: alert, oriented x 3. grossly intact to conversational testing. Diagnostics Vital Signs (24Hr): Vital Signs - 24 hr 09/22/20 06:10 09/22/20 13:14 09/22/20 13:16 Temperature 98.4 F Pulse Rate 69 78 87 Respiratory Rate 16 Blood Pressure 112/53 L 126/77 153/70 H Pulse Oximetry 99 09/22/20 13:18 Temperature Pulse Rate 72 Respiratory Rate Blood Pressure 121/58 L Pulse Oximetry Body Mass Index 28.7 Labs Results: 09/13/20 15:47 09/18/20 08:27 Medications Medications Current Medications Generic Name Dose Route Start Last Admin Trade Name Freq PRN Reason Stop Dose Admin Acetaminophen 650 mg 09/16/20 14:45 09/17/20 01:22 Acetaminophen 325 Mg Tablet PO 650 mg Q6H PRN Administration Headache/Pain Mild Scale (1-3) Al Hydroxide/Mg Hydroxide 30 ml 09/16/20 14:45 Magnesium Hydrox/Alum Hydrox 30 Ml Oral.Susp PO Q6H PRN Heartburn/Nausea Betamethasone Dipropion Augmented 1 appl 09/18/20 21:00 09/22/20 09:44 Betamethasone Dip Aug 0.05% Cr 15 Gm Tube TOPICAL 1 appl BID PATSY Administration Protocol Divalproex Sodium 750 mg 09/21/20 21:00 09/21/20 21:08 Divalproex Sodium 250 Mg Tablet.Dr PO 750 mg BEDTIME PATSY Administration Escitalopram Oxalate 10 mg 09/20/20 14:55 09/22/20 09:14 Escitalopram Oxalate 10 Mg Tablet PO 10 mg DAILY PATSY Administration [place] Carbonate 600 mg 09/21/20 21:00 09/21/20 21:09 [place] Carbonate 300 Mg Tablet PO 600 mg BEDTIME PATSY Administration Magnesium Hydroxide 30 ml 09/16/20 14:45 Milk Of Magnesia 30 Ml Oral.Susp PO DAILY PRN Constipation Melatonin 6 mg 09/21/20 13:06 09/21/20 23:00 Melatonin 3 Mg Tablet PO 6 mg BEDTIME PRN Administration Sleep Methylphenidate HCl 5 mg 09/21/20 13:05 09/22/20 09:14 Methylphenidate Hcl 5 Mg Tablet PO 5 mg DAILY PATSY Administration Quetiapine Fumarate 25 mg 09/15/20 17:51 09/21/20 23:00 Quetiapine Fumarate 25 Mg Tablet PO 25 mg Q2H PRN Administration Anxiety Allergies Allergies Allergy/AdvReac Type Severity Reaction Status Date / Time No Known Allergies Allergy Verified 09/13/20 14:47 Assessment & Plan Assessment & Plan (1) Bipolar II disorder, severe, depressed, with anxious distress: Status: Acute Code(s): F31.81 - Bipolar II disorder Assessment and Plan: 1/Continue depakote 750mg po qhs 2. continue lithium 600mg po qhs 3. gradually taper off lexapro, start latuda for depression 4. continue low dose ritalin for depression/adhd, will monitor activation, increase irritability or s/s hypomania Greater than 50% of the session was spent on counseling and/or coordination of care Reason for contiued inpatient stay Substantial Risk for: harm to self
[2020-09-22 18:00] VITALS: PULSE 84; TEMP 36.4
[2020-09-22] MEDS: QUEtiapine Fumarate 25 MG TABLET PO (18:13)
[2020-09-22] MEDS: Lithium Carbonate 300 MG TABLET 600 MG PO (20:28)
[2020-09-22] MEDS: Divalproex Sodium 250 MG TABLET.DR 750 MG PO (20:28)
[2020-09-23 05:39] VITALS: BP 130/78; PULSE 82; RESP 16; TEMP 36.3; O2SAT 97
[2020-09-23] MEDS: Methylphenidate HCl 5 MG TABLET PO (08:47)
[2020-09-23] MEDS: Escitalopram Oxalate 10 MG TABLET PO (08:48)
[2020-09-23] MEDS: Betamethasone Dip Aug 0.05% Cr 15 GM TUBE 1 APPL TOPICAL ×2 (09:26→20:08)
[2020-09-23] MEDS: LORazepam 1 MG TABLET PO ×2 (12:38→20:08)
--- NOTE | 2020-09-23 17:42 | HO.PSYCHPN ---
Subjective Subjective Date of Service: 09/23/20 Reason For Visit: Major Depression R/O Bipolar Disorder Interim History: Pt reports slight decrease in symptoms of depression. She denies SI/HI. Her affect appears less irritable. She reports feeling tired. Continues to experience some degree of dizziness but appears more like vertigo, which is not new for her but has worsened recently. She reports she has had medical follow up and ativan seems to help. SHe has been in bed most of the day, encouraged to attend groups. She reports fair sleep. No VH/AH. Review of Systems Review of Systems Constitutional: No Fever, No Chills Cardiovascular: No Chest Pain, No SOB Respiratory: No Cough, No Dyspnea Gastrointestinal: + Nausea, No Vomiting, No Abdominal pain Musculoskeletal: No joint pain, No Myalgias, No Joint Swelling Skin: No Skin Lesions, No rash Psych: + Anxiety, + Depression, +SI, No HI/AH/VH, No Social Issues Yes all other systems are reviewed and are negative Constitutional: Reports weakness Reports dizziness Cardiovascular: Reports lightheadedness and Reports slow heart rate Reports dizziness and Reports weakness Mental Status Exam Mental Status Exam Narrative: Appearance: casually groomed, somewhat disheveled, poor hygiene, in NAD but feeling dizzy Behavior: calm, cooperative Psychomotor: no agitation or retardation noted Speech: clear, normal rate/rhythm/volume, spontaneous TP: linear TC: no signs of psychosis, more future oriented. Mood: better but tired Affect:blunted, congruent AH/VH:none Delusions:none Insight/judgment:fair x 2. Memory/cog: alert, oriented x 3. grossly intact to conversational testing. Diagnostics Vital Signs (24Hr): Vital Signs - 24 hr 09/22/20 18:00 09/23/20 05:39 Temperature 97.5 F 97.4 F Pulse Rate 84 82 Respiratory Rate 16 Blood Pressure 130/78 Pulse Oximetry 97 Body Mass Index 28.7 Labs Results: 09/13/20 15:47 09/18/20 08:27 Medications Medications Current Medications Generic Name Dose Route Start Last Admin Trade Name Freq PRN Reason Stop Dose Admin Acetaminophen 650 mg 09/16/20 14:45 09/17/20 01:22 Acetaminophen 325 Mg Tablet PO 650 mg Q6H PRN Administration Headache/Pain Mild Scale (1-3) Al Hydroxide/Mg Hydroxide 30 ml 09/16/20 14:45 Magnesium Hydrox/Alum Hydrox 30 Ml Oral.Susp PO Q6H PRN Heartburn/Nausea Betamethasone Dipropion Augmented 1 appl 09/18/20 21:00 09/23/20 09:26 Betamethasone Dip Aug 0.05% Cr 15 Gm Tube TOPICAL 1 appl BID PATSY Administration Protocol Divalproex Sodium 750 mg 09/21/20 21:00 09/22/20 20:28 Divalproex Sodium 250 Mg Tablet.Dr PO 750 mg BEDTIME PATSY Administration Escitalopram Oxalate 10 mg 09/20/20 14:55 09/23/20 08:48 Escitalopram Oxalate 10 Mg Tablet PO 10 mg DAILY PATSY Administration [place] Carbonate 600 mg 09/21/20 21:00 09/22/20 20:28 [place] Carbonate 300 Mg Tablet PO 600 mg BEDTIME PATSY Administration Lorazepam 1 mg 09/23/20 21:00 Lorazepam 1 Mg Tablet PO BEDTIME PATSY Lorazepam 1 mg 09/23/20 12:21 09/23/20 12:38 Lorazepam 1 Mg Tablet PO 1 mg Q8H PRN Administration Anxiety Magnesium Hydroxide 30 ml 09/16/20 14:45 Milk Of Magnesia 30 Ml Oral.Susp PO DAILY PRN Constipation Melatonin 6 mg 09/21/20 13:06 09/21/20 23:00 Melatonin 3 Mg Tablet PO 6 mg BEDTIME PRN Administration Sleep Methylphenidate HCl 5 mg 09/21/20 13:05 09/23/20 08:47 Methylphenidate Hcl 5 Mg Tablet PO 5 mg DAILY PATSY Administration Quetiapine Fumarate 25 mg 09/15/20 17:51 09/22/20 18:13 Quetiapine Fumarate 25 Mg Tablet PO 25 mg Q2H PRN Administration Anxiety Allergies Allergies Allergy/AdvReac Type Severity Reaction Status Date / Time No Known Allergies Allergy Verified 09/13/20 14:47 Assessment & Plan Assessment & Plan (1) Bipolar II disorder, severe, depressed, with anxious distress: Status: Acute Code(s): F31.81 - Bipolar II disorder Assessment and Plan: 1/Continue depakote 750mg po qhs 2. continue lithium 600mg po qhs 3. gradually taper off lexapro, start latuda for depression 4. continue low dose ritalin for depression/adhd, will monitor activation, increase irritability or s/s hypomania Greater than 50% of the session was spent on counseling and/or coordination of care Reason for contiued inpatient stay Substantial Risk for: harm to self
[2020-09-23 18:00] VITALS: BP 135/61; PULSE 79; TEMP 36.1
[2020-09-23] MEDS: Divalproex Sodium 250 MG TABLET.DR 750 MG PO (20:08)
[2020-09-23] MEDS: Lithium Carbonate 300 MG TABLET 600 MG PO (20:08)
[2020-09-24 06:15] VITALS: BP 119/55; PULSE 72; RESP 16; TEMP 36.7; O2SAT 99
[2020-09-24] MEDS: Escitalopram Oxalate 10 MG TABLET PO (08:34)
[2020-09-24] MEDS: Methylphenidate HCl 5 MG TABLET PO (08:34)
--- NOTE | 2020-09-24 12:12 | HO.PSYCHPN ---
Subjective Subjective Date of Service: 09/24/20 Reason For Visit: Major Depression R/O Bipolar Disorder Interim History: 09/24/2020: Patient reports depression and anxiety. Today she was preoccupied with vertigo dizziness. Had an episode of vomiting this morning. I will review medications and discuss with primary provider. 09/23/2020: Pt reports slight decrease in symptoms of depression. She denies SI/HI. Her affect appears less irritable. She reports feeling tired. Continues to experience some degree of dizziness but appears more like vertigo, which is not new for her but has worsened recently. She reports she has had medical follow up and ativan seems to help. SHe has been in bed most of the day, encouraged to attend groups. She reports fair sleep. No VH/AH. Review of Systems Review of Systems Constitutional: No Fever, No Chills Cardiovascular: No Chest Pain, No SOB Respiratory: No Cough, No Dyspnea Gastrointestinal: + Nausea, No Vomiting, No Abdominal pain Musculoskeletal: No joint pain, No Myalgias, No Joint Swelling Skin: No Skin Lesions, No rash Psych: + Anxiety, + Depression, +SI, No HI/AH/VH, No Social Issues Yes all other systems are reviewed and are negative Constitutional: Reports weakness Reports dizziness Cardiovascular: Reports lightheadedness and Reports slow heart rate Reports dizziness and Reports weakness Mental Status Exam Mental Status Exam Narrative: Appearance: casually groomed, somewhat disheveled, poor hygiene, in NAD but feeling dizzy Behavior: calm, cooperative Psychomotor: no agitation or retardation noted Speech: clear, normal rate/rhythm/volume, spontaneous TP: linear TC: no signs of psychosis, more future oriented. Mood: better but tired Affect:blunted, congruent AH/VH:none Delusions:none Insight/judgment:fair x 2. Memory/cog: alert, oriented x 3. grossly intact to conversational testing. Patient Appearance: Appropriate Patient Orientation: Person, Place, Time and Situation Level of Consciousness: Awake Patient Behavior: Appropriate Mood Description: Depressed, Anxious and Apprehensive Affect Description: Depressed Patient Cognition Impaired: No Ability to Follow Directions: Excellent Speech Pattern: Appropriate Memory Description: Intact Diagnostics Vital Signs (24Hr): Vital Signs - 24 hr 09/23/20 18:00 09/24/20 06:15 Temperature 96.9 F 98.1 F Pulse Rate 79 72 Respiratory Rate 16 Blood Pressure 135/61 119/55 L Pulse Oximetry 99 Body Mass Index 28.7 Labs Results: 09/13/20 15:47 09/18/20 08:27 Medications Medications Current Medications Generic Name Dose Route Start Last Admin Trade Name [place] PRN Reason Stop Dose Admin Acetaminophen 650 mg 09/16/20 14:45 09/17/20 01:22 Acetaminophen 325 Mg Tablet PO 650 mg Q6H PRN Administration Headache/Pain Mild Scale (1-3) Al Hydroxide/Mg Hydroxide 30 ml 09/16/20 14:45 Magnesium Hydrox/Alum Hydrox 30 Ml Oral.Susp PO Q6H PRN Heartburn/Nausea Betamethasone Dipropion Augmented 1 appl 09/18/20 21:00 09/24/20 09:20 Betamethasone Dip Aug 0.05% Cr 15 Gm Tube TOPICAL Not Given BID PATSY Protocol Divalproex Sodium 750 mg 09/21/20 21:00 09/23/20 20:08 Divalproex Sodium 250 Mg Tablet.Dr PO 750 mg BEDTIME PATSY Administration Escitalopram Oxalate 10 mg 09/20/20 14:55 09/24/20 08:34 Escitalopram Oxalate 10 Mg Tablet PO 10 mg DAILY PATSY Administration [place] Carbonate 600 mg 09/21/20 21:00 09/23/20 20:08 [place] Carbonate 300 Mg Tablet PO 600 mg BEDTIME PATSY Administration Lorazepam 1 mg 09/23/20 21:00 09/23/20 20:08 Lorazepam 1 Mg Tablet PO 1 mg BEDTIME PATSY Administration Lorazepam 1 mg 09/23/20 12:21 09/23/20 12:38 Lorazepam 1 Mg Tablet PO 1 mg Q8H PRN Administration Anxiety Magnesium Hydroxide 30 ml 09/16/20 14:45 Milk Of Magnesia 30 Ml Oral.Susp PO DAILY PRN Constipation Melatonin 6 mg 09/21/20 13:06 09/21/20 23:00 Melatonin 3 Mg Tablet PO 6 mg BEDTIME PRN Administration Sleep Methylphenidate HCl 5 mg 09/21/20 13:05 09/24/20 08:34 Methylphenidate Hcl 5 Mg Tablet PO 5 mg DAILY PATSY Administration Quetiapine Fumarate 25 mg 09/15/20 17:51 09/22/20 18:13 Quetiapine Fumarate 25 Mg Tablet PO 25 mg Q2H PRN Administration Anxiety Allergies Allergies Allergy/AdvReac Type Severity Reaction Status Date / Time No Known Allergies Allergy Verified 09/13/20 14:47 Assessment & Plan Assessment & Plan (1) Bipolar II disorder, severe, depressed, with anxious distress: Status: Acute Code(s): F31.81 - Bipolar II disorder Assessment and Plan: 1/Continue depakote 750mg po qhs 2. continue lithium 600mg po qhs 3. gradually taper off lexapro, start latuda for depression 4. continue low dose ritalin for depression/adhd, will monitor activation, increase irritability or s/s hypomania Suggest switching to extended release versions of Depakote and lithium to reduce vomiting. Greater than 50% of the session was spent on counseling and/or coordination of care Reason for contiued inpatient stay Substantial Risk for: harm to self and inability to function
[2020-09-24 18:00] VITALS: BP 130/63; PULSE 69; RESP 16; TEMP 36.3; O2SAT 98
[2020-09-24] MEDS: Divalproex Sodium 250 MG TABLET.DR 750 MG PO (20:14)
[2020-09-24] MEDS: Lithium Carbonate 300 MG TABLET 600 MG PO (20:14)
[2020-09-24] MEDS: LORazepam 1 MG TABLET PO ×2 (20:14→23:57)
[2020-09-24] MEDS: Betamethasone Dip Aug 0.05% Cr 15 GM TUBE 1 APPL TOPICAL (20:17)
[2020-09-24 21:23] VITALS: BP 132/65; PULSE 77
[2020-09-25 06:20] VITALS: BP 104/55; PULSE 60; RESP 16; TEMP 37.1; O2SAT 99
--- NOTE | 2020-09-25 08:02 | HO.PSYCHPN ---
Subjective Subjective Date of Service: 09/25/20 Reason For Visit: Major Depression R/O Bipolar Disorder Interim History: 09/25/2020: Patient spends a lot of time in bed. Preoccupied with dizziness and vomiting wants to switch Lexapro to bedtime. Suggest switching Depakote and lithium to extended release to reduced GI burden 09/24/2020: Patient reports depression and anxiety. Today she was preoccupied with vertigo dizziness. Had an episode of vomiting this morning. I will review medications and discuss with primary provider. 09/23/2020: Pt reports slight decrease in symptoms of depression. She denies SI/HI. Her affect appears less irritable. She reports feeling tired. Continues to experience some degree of dizziness but appears more like vertigo, which is not new for her but has worsened recently. She reports she has had medical follow up and ativan seems to help. SHe has been in bed most of the day, encouraged to attend groups. She reports fair sleep. No VH/AH. Review of Systems Review of Systems Constitutional: No Fever, No Chills Cardiovascular: No Chest Pain, No SOB Respiratory: No Cough, No Dyspnea Gastrointestinal: + Nausea, No Vomiting, No Abdominal pain Musculoskeletal: No joint pain, No Myalgias, No Joint Swelling Skin: No Skin Lesions, No rash Psych: + Anxiety, + Depression, +SI, No HI/AH/VH, No Social Issues Yes all other systems are reviewed and are negative Constitutional: Reports weakness Reports dizziness Cardiovascular: Reports lightheadedness and Reports slow heart rate Reports dizziness and Reports weakness Mental Status Exam Mental Status Exam Narrative: Appearance: casually groomed, somewhat disheveled, poor hygiene, in NAD but feeling dizzy Behavior: calm, cooperative Psychomotor: no agitation or retardation noted Speech: clear, normal rate/rhythm/volume, spontaneous TP: linear TC: no signs of psychosis, more future oriented. Mood: better but tired Affect:blunted, congruent AH/VH:none Delusions:none Insight/judgment:fair x 2. Memory/cog: alert, oriented x 3. grossly intact to conversational testing. Patient Appearance: Appropriate Patient Orientation: Person, Place, Time and Situation Level of Consciousness: Awake Patient Behavior: Appropriate Mood Description: Depressed, Anxious and Apprehensive Affect Description: Depressed Patient Cognition Impaired: No Ability to Follow Directions: Excellent Speech Pattern: Appropriate Memory Description: Intact Diagnostics Vital Signs (24Hr): Vital Signs - 24 hr 09/24/20 18:00 09/24/20 21:23 09/25/20 06:20 Temperature 97.3 F 98.8 F Pulse Rate 69 77 60 Respiratory Rate 16 16 Blood Pressure 130/63 132/65 104/55 L Pulse Oximetry 98 99 Body Mass Index 28.7 Labs Results: 09/13/20 15:47 09/18/20 08:27 Medications Medications Current Medications Generic Name Dose Route Start Last Admin Trade Name Freq PRN Reason Stop Dose Admin Acetaminophen 650 mg 09/16/20 14:45 09/17/20 01:22 Acetaminophen 325 Mg Tablet PO 650 mg Q6H PRN Administration Headache/Pain Mild Scale (1-3) Al Hydroxide/Mg Hydroxide 30 ml 09/16/20 14:45 Magnesium Hydrox/Alum Hydrox 30 Ml Oral.Susp PO Q6H PRN Heartburn/Nausea Betamethasone Dipropion Augmented 1 appl 09/18/20 21:00 09/24/20 20:17 Betamethasone Dip Aug 0.05% Cr 15 Gm Tube TOPICAL 1 appl BID PATSY Administration Protocol Divalproex Sodium 750 mg 09/21/20 21:00 09/24/20 20:14 Divalproex Sodium 250 Mg Tablet.Dr PO 750 mg BEDTIME PATSY Administration Escitalopram Oxalate 10 mg 09/20/20 14:55 09/24/20 08:34 Escitalopram Oxalate 10 Mg Tablet PO 10 mg DAILY PATSY Administration [place] Carbonate 600 mg 09/21/20 21:00 09/24/20 20:14 [place] Carbonate 300 Mg Tablet PO 600 mg BEDTIME PATSY Administration Lorazepam 1 mg 09/23/20 21:00 09/24/20 20:14 Lorazepam 1 Mg Tablet PO 1 mg BEDTIME PATSY Administration Lorazepam 1 mg 09/23/20 12:21 09/24/20 23:57 Lorazepam 1 Mg Tablet PO 1 mg Q8H PRN Administration Anxiety Magnesium Hydroxide 30 ml 09/16/20 14:45 Milk Of Magnesia 30 Ml Oral.Susp PO DAILY PRN Constipation Melatonin 6 mg 09/21/20 13:06 09/21/20 23:00 Melatonin 3 Mg Tablet PO 6 mg BEDTIME PRN Administration Sleep Methylphenidate HCl 5 mg 09/21/20 13:05 09/24/20 08:34 Methylphenidate Hcl 5 Mg Tablet PO 5 mg DAILY PATSY Administration Quetiapine Fumarate 25 mg 09/15/20 17:51 09/22/20 18:13 Quetiapine Fumarate 25 Mg Tablet PO 25 mg Q2H PRN Administration Anxiety Allergies Allergies Allergy/AdvReac Type Severity Reaction Status Date / Time No Known Allergies Allergy Verified 09/13/20 14:47 Assessment & Plan Assessment & Plan (1) Bipolar II disorder, severe, depressed, with anxious distress: Status: Acute Code(s): F31.81 - Bipolar II disorder Assessment and Plan: 1/Continue depakote 750mg po qhs 2. continue lithium 600mg po qhs 3. gradually taper off lexapro, start latuda for depression 4. continue low dose ritalin for depression/adhd, will monitor activation, increase irritability or s/s hypomania Suggest switching to extended release versions of Depakote and lithium to reduce vomiting. Greater than 50% of the session was spent on counseling and/or coordination of care Reason for contiued inpatient stay Substantial Risk for: inability to function
[2020-09-25] MEDS: Methylphenidate HCl 5 MG TABLET PO (08:28)
[2020-09-25] MEDS: LORazepam 1 MG TABLET PO ×2 (15:23→20:26)
[2020-09-25 18:00] VITALS: BP 140/64; PULSE 69; RESP 16; TEMP 36.6
[2020-09-25] MEDS: Escitalopram Oxalate 10 MG TABLET PO (20:26)
[2020-09-25] MEDS: Divalproex Sodium 250 MG TABLET.DR 750 MG PO (20:26)
[2020-09-25] MEDS: Lithium Carbonate 300 MG TABLET 600 MG PO (20:26)
[2020-09-25] MEDS: Betamethasone Dip Aug 0.05% Cr 15 GM TUBE 1 APPL TOPICAL (21:23)
[2020-09-26 01:14] VITALS: TEMP 37
[2020-09-26 06:05] VITALS: BP 115/72; PULSE 72; RESP 16; TEMP 36.3; O2SAT 98
[2020-09-26] MEDS: Methylphenidate HCl 5 MG TABLET PO (10:38)
[2020-09-26] MEDS: Betamethasone Dip Aug 0.05% Cr 15 GM TUBE 1 APPL TOPICAL ×2 (10:49→22:10)
[2020-09-26] MEDS: Lurasidone HCl 20 MG TABLET PO (17:45)
[2020-09-26 18:00] VITALS: BP 108/55; PULSE 75; RESP 16; TEMP 36.5; O2SAT 100
--- NOTE | 2020-09-26 18:42 | P.PNPSI_ITS ---
Subjective Subjective Date of Service: 09/26/20 Reason For Visit: Major Depression R/O Bipolar Disorder Subjective Notes: Conditional Voluntary Interim History: Pt reports feeling less irritable. She continues to endorse depressed mood, anhedonia. She reports decrease in suicidal ideation. She continues to have episodes of nausea/vomiting, less vertigo. She has been mostly in bed, encouraged to attend groups. We discussed starting latuda for bipolar depression. Medication Compliance: Yes Side effects from medications: No Attending Groups: Intermittent Review of Systems Review of Systems Constitutional: No Fever, No Chills Cardiovascular: No Chest Pain, No SOB Respiratory: No Cough, No Dyspnea Gastrointestinal: + Nausea, No Vomiting, No Abdominal pain Musculoskeletal: No joint pain, No Myalgias, No Joint Swelling Skin: No Skin Lesions, No rash Psych: + Anxiety, + Depression, +SI, No HI/AH/VH, No Social Issues Yes all other systems are reviewed and are negative Constitutional: Reports weakness Reports dizziness Cardiovascular: Reports lightheadedness and Reports slow heart rate Reports dizziness and Reports weakness Mental Status Exam Mental Status Exam Narrative: Appearance: casually groomed, somewhat disheveled, tearful, poor hygiene, in NAD but feeling dizzy Behavior: calm, cooperative Psychomotor: no agitation or retardation noted Speech: clear, normal rate/rhythm/volume, spontaneous TP: linear TC: no signs of psychosis, more future oriented. Mood: depressed Affect:blunted, congruent AH/VH:none Delusions:none Insight/judgment:fair x 2. Memory/cog: alert, oriented x 3. grossly intact to conversational testing. Diagnostics Vital Signs (24Hr): Vital Signs - 24 hr 09/26/20 01:14 09/26/20 06:05 Temperature 98.6 F 97.3 F Pulse Rate 72 Respiratory Rate 16 Blood Pressure 115/72 Pulse Oximetry 98 Body Mass Index 28.7 Labs Results: 09/13/20 15:47 09/18/20 08:27 Labs: Laboratory Results - last 48 hr 09/25/20 16:59 Valproic Acid 71.0 Medications Medications Current Medications Generic Name Dose Route Start Last Admin Trade Name Freq PRN Reason Stop Dose Admin Acetaminophen 650 mg 09/16/20 14:45 09/17/20 01:22 Acetaminophen 325 Mg Tablet PO 650 mg Q6H PRN Administration Headache/Pain Mild Scale (1-3) Al Hydroxide/Mg Hydroxide 30 ml 09/16/20 14:45 Magnesium Hydrox/Alum Hydrox 30 Ml Oral.Susp PO Q6H PRN Heartburn/Nausea Betamethasone Dipropion Augmented 1 appl 09/18/20 21:00 09/26/20 10:49 Betamethasone Dip Aug 0.05% Cr 15 Gm Tube TOPICAL 1 appl BID PATSY Administration Protocol Divalproex Sodium 750 mg 09/21/20 21:00 09/25/20 20:26 Divalproex Sodium 250 Mg Tablet.Dr PO 750 mg BEDTIME PATSY Administration Escitalopram Oxalate 10 mg 09/25/20 21:00 09/25/20 20:26 Escitalopram Oxalate 10 Mg Tablet PO 10 mg BEDTIME PATSY Administration [place] Carbonate 600 mg 09/21/20 21:00 09/25/20 20:26 [place] Carbonate 300 Mg Tablet PO 600 mg BEDTIME PATSY Administration Lorazepam 1 mg 09/23/20 21:00 09/25/20 20:26 Lorazepam 1 Mg Tablet PO 1 mg BEDTIME PATSY Administration Lorazepam 1 mg 09/23/20 12:21 09/25/20 15:23 Lorazepam 1 Mg Tablet PO 1 mg Q8H PRN Administration Anxiety Lurasidone HCl 20 mg 09/26/20 17:00 09/26/20 17:45 Lurasidone Hcl 20 Mg Tablet PO 20 mg DAILY@1700 PATSY Administration Magnesium Hydroxide 30 ml 09/16/20 14:45 Milk Of Magnesia 30 Ml Oral.Susp PO DAILY PRN Constipation Meclizine HCl 25 mg 09/26/20 17:01 Meclizine Hcl 25 Mg Tablet PO Q6H PRN Nausea Melatonin 6 mg 09/21/20 13:06 09/21/20 23:00 Melatonin 3 Mg Tablet PO 6 mg BEDTIME PRN Administration Sleep Methylphenidate HCl 5 mg 09/21/20 13:05 09/26/20 10:38 Methylphenidate Hcl 5 Mg Tablet PO 5 mg DAILY PATSY Administration Quetiapine Fumarate 25 mg 09/15/20 17:51 09/22/20 18:13 Quetiapine Fumarate 25 Mg Tablet PO 25 mg Q2H PRN Administration Anxiety Allergies Allergies Allergy/AdvReac Type Severity Reaction Status Date / Time No Known Allergies Allergy Verified 09/13/20 14:47 Assessment & Plan Assessment & Plan (1) Bipolar II disorder, severe, depressed, with anxious distress: Status: Acute Code(s): F31.81 - Bipolar II disorder Assessment and Plan: 1/Continue depakote 750mg po qhs 2. continue lithium 600mg po qhs 3. Start Latuda 20mg po dinner daily. 4. continue low dose ritalin for depression/adhd, will monitor activation, increase irritability or s/s hypomania Greater than 50% of the session was spent on counseling and/or coordination of care Reason for contiued inpatient stay Substantial Risk for: harm to self
[2020-09-26] MEDS: LORazepam 1 MG TABLET PO ×2 (20:49→22:10)
[2020-09-26] MEDS: Lithium Carbonate 300 MG TABLET 600 MG PO (20:49)
[2020-09-26] MEDS: Escitalopram Oxalate 10 MG TABLET PO (20:49)
[2020-09-26] MEDS: Divalproex Sodium 250 MG TABLET.DR 750 MG PO (20:49)
[2020-09-26] MEDS: Meclizine HCl 25 MG TABLET PO (20:58)
[2020-09-27 06:20] VITALS: BP 111/57; PULSE 64; RESP 16; TEMP 36.9; O2SAT 98
[2020-09-27] MEDS: LORazepam 1 MG TABLET PO (10:23)
[2020-09-27] MEDS: Methylphenidate HCl 5 MG TABLET PO (10:23)
[2020-09-27] MEDS: Betamethasone Dip Aug 0.05% Cr 15 GM TUBE 1 APPL TOPICAL (10:24)
--- NOTE | 2020-09-27 13:53 | PM.PSYDC ---
DS: Providers Provider Date of Service: 10/12/20 Date of admission: 09/16/20 14:45 Primary care physician: Unknown Physician Consults: 09/20/20 16:22 Consult to Hospitalist Routine Consulting Provider: Hospitalist Reason For Exam: weakness/dizziness DS: Diagnosis Discharge Diagnosis (1) Bipolar II disorder, severe, depressed, with anxious distress: Status: Acute DS: Medications Discharge Medications Home Medications: Previous Rx's Medication Instructions Recorded betamethasone, augmented 1 appl TOPICAL BID #15 g 09/27/20 divalproex 750 mg PO BEDTIME 30 Days #90 tab 09/27/20 escitalopram oxalate 10 mg PO BEDTIME 30 Days #30 tab 09/27/20 lithium carbonate 600 mg PO BEDTIME 15 Days #30 tab 09/27/20 lorazepam 1 mg PO BID 15 Days #30 tab 09/27/20 lurasidone [Latuda] 20 mg PO DAILY@1700 30 Days #30 tab 09/27/20 meclizine 25 mg PO Q6H PRN 5 Days #10 tab 09/27/20 melatonin 6 mg PO BEDTIME PRN 30 Days tab 09/27/20 methylphenidate HCl 5 mg PO DAILY 15 Days #15 tab 09/27/20 Discharge Plan Discharge Patient Disposition: Home, Self-Care Referrals: Renetta Perez, therapist, [place] [Other] - 09/30/20 2:00 pm Cecy Thomas [facility] [place] PHP [Other] - 10/03/20 10:00 am PHP program at [facility] [Other] - 10/04/20 9:00 am Donis Bloom psychiatrist, [place] [Other] Physician,Unknown [Primary Care Provider] - Discharge Medications: New divalproex 250 mg Tablet,Delayed Release (Dr/Ec) 750 mg PO BEDTIME 30 Days Qty: 90 RF: 0 methylphenidate HCl 5 mg Tablet 5 mg PO DAILY 15 Days Qty: 15 RF: 0 betamethasone, augmented 0.05 % Cream 1 appl topical BID Qty: 15 RF: 0 melatonin 3 mg Tablet 6 mg PO BEDTIME PRN (Reason: Sleep) 30 Days RF: 0 meclizine 25 mg Tablet 25 mg PO Q6H PRN (Reason: Nausea) 5 Days Qty: 10 RF: 0 lorazepam 1 mg Tablet 1 mg PO BID 15 Days Qty: 30 RF: 0 lithium carbonate 300 mg Tablet 600 mg PO BEDTIME 15 Days Qty: 30 RF: 0 escitalopram oxalate 10 mg Tablet 10 mg PO BEDTIME 30 Days Qty: 30 RF: 0 Latuda 20 mg Tablet 20 mg PO DAILY@1700 30 Days Qty: 30 RF: 0 Discontinued quetiapine 25 mg tablet 0.5 tab PO BID RF: 0 citalopram 20 mg tablet 1 tab PO DAILY RF: 0 lithium carbonate 300 mg capsule 3 cap PO BEDTIME RF: 0 Discharge Orders: Discharge Order (Routine); Ordered 09/27/20 Ordered By: Betzaida Norris Diet: regular diet Activity on Discharge: As tolerated Stand Alone Forms: Patient Portal Discharge page, Community Support Care Plan Goals: 1. Follow up with referrals Health Concerns: 1. Follow up with PCP Plan of Treatment: 1. Follow up with referrals. 2. Take medication as prescribed. Discharge Date/Time: 09/27/20 14:40 Mental Status Exam Mental Status Exam Narrative: Appearance: casually groomed, improved hygiene, in NAD Behavior: calm, cooperative Psychomotor: no agitation or retardation noted Speech: clear, normal rate/rhythm/volume, spontaneous TP: linear TC: no signs of psychosis, more future oriented. Mood: better Affect:brighter, non labile AH/VH:none Delusions:none Insight/judgment:fair x 2. Memory/cog: alert, oriented x 3. grossly intact to conversational testing. Data Data Completed and Pending Completed studies during hospitalization [Text1]: 09/25/20 16:59 Valproic Acid 71.0 DS: Summary Hospital Course Hospital Course: HPI The patient is a 55-year-old female came to the emergency room secondary to worsening depression with thoughts of suicide. Patient has a questionable history of bipolar disorder recurrent depression ADD. She used to see Dr. Archie Garner min her last hospitalization was in 2013 which she did have a suicide attempt. She was referred to the emergency room by her therapist Renetta back. She has been on a leave of absence from work since 2019 due to increase agitation irritability with both employees and customers. Patient reports poor concentration mood instability hopelessness helplessness increase reactivity and irritability. Citalopram had recently been increased to 40 mg daily she had recently seen a new psychiatrist in [place] at the [facility] was started Seroquel she had found the sedating. While in the emergency room she was started on Depakote 250 b.i.d. she has been continued on lithium 900 mg at bedtime. Past Psychiatric History: Patient has a history of PTSD depression mood instability has a history of 4 prior psychiatric hospitalizations she does have a history of a suicide attempt. Patient used to see Dr. sagastume gave has been on Paxil in the past later citalopram lithium was added she was stable on this combination for many years her last hospitalizations were in 2013 1 at and 1 at [facility] 2012 she had been scheduled to go to the [facility] HOSPITAL COURSE On the unit, pt presented as somewhat irritable, low frustration tolerance at times. She endorse feeling depressed for very long time, with periods of worsening depression- dysthymic mood. She also reported sense of not having things under control and unable to plan and organize herself. She reported passive suicidal but denied any plan or intent to hurt herself. We discussed risks, benefits and alternative treatment options. She agreed to increase depakote for mood, impulsivity and irritability. She was continued on low dose of lexapro. While in unit, pt experience vertigo, which is not new and pt has had extensive work up. She reported ativan being helpful twice a day, which she was already prescribed. Her affect gradually appear much less irritable. She reported feeling like she had more control over her reactions when feeling frustrated. She reported decrease symptoms of depression. She denied SI/HI. She reported improved sleep and appetite. There were no incidences of disruptive behaviors nor use of restraints. She agreed to continue PHP and OP after dsicharge. Time spent discussing smoking cessation with patient: 3 to 10 minutes Status at Discharge Cognitive/behavioral status at discharge: Pt with less irritability. She reports decrease symptoms of depression. She denied SI/HI. Functional status at discharge: independent ambulation Overall status at discharge: patient is progressing back to baseline Time Spent with Patient Time attestation: Total time spent providing and/or coordinating discharge services: Time spent: Greater than 30 minutes
== END 2020-09-27 14:40 | disposition home or self-care (01) | DRG 885 ==
LOC: HO.ED 09-16 15:02 → HO.PM5 09-16 15:03
PROVIDERS: Clinical Nurse Specialist Psychiatric/Mental Health, Adult; Physician Assistant; Admitting Provider Psychiatry & Neurology Psychiatry; Emergency Provider Nurse Practitioner Primary Care; Visit Provider Social Worker
DX: F31.4 Bipolar disorder, current episode depressed, severe, without psychotic features (principal); R45.851 Suicidal ideations; Z20.822 Contact with and (suspected) exposure to COVID-19; Z79.899 Other long term (current) drug therapy
CPT/HCPCS: 0241U; 36415; 80048; 80053; 80061; 80076; 80164; 80178; 80307; 82607; 82746; 84439; 84443; 85025; 87635; 93005; 96372; 99285

== ENCOUNTER 2021-07-13 19:03 | Inpatient (IN) | payer OTHER, SELFPAY ==
--- NOTE | ~2021-07-13 | CT_ITS ---
EXAMINATION: CT HEAD WITHOUT CONTRAST CLINICAL INFORMATION: Cognitive changes. COMPARISON: None. TECHNIQUE: Contiguous axial imaging was performed from the skull base to vertex without intravenous administration of contrast. This CT examination was performed using dose optimization techniques as appropriate, variously including the following: *Automated exposure control *Adjustment of mA and/or kV according to patient size (this includes techniques or standardized protocols for targeted exams where dose is matched to indication/reason for exam; i.e. extremities or head) *Use of iterative reconstruction technique DLP: 686 mGy-cm FINDINGS: There is no evidence of acute intracranial hemorrhage or edematous territorial infarction. There is no abnormal attenuation within the brain parenchyma. Matthews-white matter differentiation is preserved. The ventricles are normal in size and configuration. No evidence for obstructive hydrocephalus. No abnormal mass effect or midline shift. No extra-axial fluid collections. No acute soft tissue or osseous abnormalities. The mastoid air cells and paranasal sinuses are clear. CT/CT head/brain wo con IMPRESSION: No evidence of acute intracranial hemorrhage or edematous territorial infarction.
--- NOTE | ~2021-07-13 | XR_ITS ---
EXAMINATION: X-RAY RIGHT SHOULDER X-RAY LEFT SHOULDER CLINICAL INFORMATION: Fall with decreased range of motion. COMPARISON: None TECHNIQUE: 4 views of each shoulder were obtained. FINDINGS: Right shoulder: No evidence of acute fractures or malalignment. The acromioclavicular joint is maintained. There are mild degenerative changes of the glenohumeral joint and acromioclavicular joint. There is a nonaggressive appearing sclerotic lesion in the humeral head, likely representing a bone island. Imaged right-sided ribs are intact. Visualized right lung is clear. Left shoulder: No acute fractures or malalignment. The acromioclavicular joint is maintained. There are also mild degenerative changes. There is a nonaggressive appearing sclerotic lesion in the proximal humeral shaft, also likely representing a bone island. Visualized left-sided clavicles and left lung are within normal limits. XR/XR shoulder LT min 2V IMPRESSION: No acute fractures or malalignment. Mild degenerative osteoarthritis.
--- NOTE | ~2021-07-13 | XR_ITS ---
EXAMINATION: X-RAY RIGHT SHOULDER X-RAY LEFT SHOULDER CLINICAL INFORMATION: Fall with decreased range of motion. COMPARISON: None TECHNIQUE: 4 views of each shoulder were obtained. FINDINGS: Right shoulder: No evidence of acute fractures or malalignment. The acromioclavicular joint is maintained. There are mild degenerative changes of the glenohumeral joint and acromioclavicular joint. There is a nonaggressive appearing sclerotic lesion in the humeral head, likely representing a bone island. Imaged right-sided ribs are intact. Visualized right lung is clear. Left shoulder: No acute fractures or malalignment. The acromioclavicular joint is maintained. There are also mild degenerative changes. There is a nonaggressive appearing sclerotic lesion in the proximal humeral shaft, also likely representing a bone island. Visualized left-sided clavicles and left lung are within normal limits. XR/XR shoulder RT min 2V IMPRESSION: No acute fractures or malalignment. Mild degenerative osteoarthritis.
[2021-07-13 19:32] VITALS: BP 96/46; PULSE 56; TEMP 36.7
[2021-07-13] MEDS: traZODone HCL 50 MG TABLET PO (20:51)
--- NOTE | 2021-07-13 20:58 | P.CNHOSGPS_ITS ---
History of Present Illness Data of Consult Service Date: 07/14/21 Primary Care Provider: Ann Marie Amador NP HPI 56 yo F with pmhx bipolar disorder admitted to [facility] for management of bipolar disorder with severe depression and anxiety. we are asked to see pt for admission H&P. Pt is laying in bed comfortably. complaining of generalized weakness and muscle pains in her arms and legs. reports that this has happened in the past when she overdosed. She denies any chest pain, no abd pain, no SOB, no N/V, no diarrhea or constipation no urinary symptoms. Vitals reviewed show no significant abnormality Review of Systems Review of Systems: Yes all other systems are reviewed and are negative [facility] Medical History (Updated 10/05/20 @ 00:01 by Jae Patel) Carpal tunnel syndrome Dental caries Depression Pertinent family history: no pertinent family hx Surgical History (Updated 09/13/20 @ 14:18 by Tommy Holder) H/O tubal ligation Social History Household Members: Family Housing: Apartment Do you presently have visiting nurse or other home services: No Alcohol intake: former Patient Tobacco Use Status: Former Tobacco user Tobacco use type: Cigarette Years Smoked: 24 Smoked in Last 30 Days: No Patient Interested in Nicotine Replacement: No Patient Given Instructions on How to Stop Smoking: No Second Hand Smoke Exposure: No Use of substances other than those prescribed or required for medical reasons: No Substance Use Type: Marijuana Substance Use Frequency: Weekly Last Used Substance: Days (ago) Last Used Substance Other:: 2 days ago Currently Displaying Signs/Symptoms of Drug Intoxication Withdrawal: No Any prior treatment program specific to substance use: No Have you been hit, kicked, punched, or otherwise hurt by someone within the past year? If so, by whom?: No Do you feel safe in your current relationship?: No Current Relationship Is there a partner from a previous relationship who is making you feel unsafe now?: No Are you made to feel afraid or neglected: No Advance Directives: No Do you have thoughts of harming others: Frequent Do you have a plan to hurt others: No Plan Recently lost weight without trying: Yes How much weight loss: 34pounds or more Eating poorly because of decreased appetite: Yes Nutrition screen score: 7 Nutrition Risks: Difficulty chewing Patient : No : No Poor oral hygiene: Yes service: No Sexual orientation: Decline to Answer Meds Allergies Allergy/AdvReac Type Severity Reaction Status Date / Time No Known Allergies Allergy Verified 09/13/20 14:47 Active Medications: Current Medications Acetaminophen (Acetaminophen 325 Mg Tablet) 650 mg PO Q6H PRN PRN Reason: Headache/Pain Mild Scale (1-3) Al Hydroxide/Mg Hydroxide (Magnesium Hydrox/Alum Hydrox 30 Ml Oral.Susp) 30 ml PO Q6H PRN PRN Reason: Heartburn/Nausea Hydroxyzine HCl (Hydroxyzine Hcl 25 Mg Tablet) 25 mg PO Q6H PRN PRN Reason: Anxiety Magnesium Hydroxide (Milk Of Magnesia 30 Ml Oral.Susp) 30 ml PO DAILY PRN PRN Reason: Constipation Pharmacy Consult (Consult Rx Perform Med Rec) 1 each MISCELLANE ONCE PRN PRN Reason: Consult order Trazodone HCl (Trazodone Hcl 50 Mg Tablet) 50 mg PO BEDTIME PRN PRN Reason: Insomnia Last Admin: 07/13/21 20:51 Dose: 50 mg Documented by: Home Medications Medication Instructions Recorded Confirmed Last Taken Type benztropine 0.5 mg tablet 0.5 mg PO BID 07/14/21 07/14/21 Unknown History citalopram 20 mg tablet 20 mg PO BEDTIME 07/14/21 07/14/21 Unknown History divalproex 500 mg tablet,extended 1,000 mg PO BEDTIME 07/14/21 07/14/21 Unknown History release 24 hr (Depakote ER) lurasidone 20 mg tablet (Latuda) 20 mg PO BEDTIME 07/14/21 07/14/21 Unknown History lurasidone 60 mg tablet (Latuda) 60 mg PO BEDTIME 07/14/21 07/14/21 Unknown History trazodone 50 mg tablet 50 mg PO BEDTIME 07/14/21 07/14/21 Unknown History Assessment and Plan (1) Bipolar II disorder, severe, depressed, with anxious distress: Status: Acute 56 yo F [facility] of depression and anxiety in the setting of bipolar disorder we are asked to see her for admission H&P # Muscle pain - CPK obtained shows normal results - recommend tylenol PRN # Bipolar dx with depression and anxiety - management per [facility] Physical Exam Const General: cooperative and no acute distress Orientation/consciousness: patient oriented x3 Eyes General: appearance normal, both eyes and all related structures Pupils: Equal, round and reactive pupils present Resp Effort & Inspection: normal respiratory effort Auscultation: clear to auscultation bilaterally Cardio Rate: regular rate Rhythm: regular rhythm GI Palpation (GI): Soft to palpation Auscultation: normal bowel sounds Skin General skin exam: no rashes or lesions noted Neuro General: patient oriented x3 Cranial nerves: Yes Equal, round and reactive pupils present Cognition (Neuro): normal cognition Extrem General: Yes normal to inspection and Yes no pedal edema
[2021-07-14] MEDS: Acetaminophen 325 MG TABLET 650 MG PO (07:34)
[2021-07-14 07:56] LABS: Estimated Average Glucose 85 mg/dL; Hemoglobin A1c % 4.6 %
[2021-07-14 08:05] LABS: Cholesterol 242 mg/dL; HDL Cholesterol 49 mg/dL; LDL Cholesterol Calculated 168 mg/dl; Triglycerides 125 mg/dL
[2021-07-14 08:17] LABS: Free T4 (Free Thyroxine) 0.93 ng/dL (0.71-1.85); Thyroid Stimulating Hormone 1.12 uIU/mL (0.32-4.0)
[2021-07-14 09:02] LABS: Folate 10.1 ng/mL (> or = 4.0); Vitamin B12 1001 pg/mL (200-900)
[2021-07-14 11:38] VITALS: BP 98/53; PULSE 60; RESP 14; TEMP 36.6; O2SAT 98
--- NOTE | 2021-07-14 12:43 | MHC.CLN ---
NUTRITION FROM PRIOR DOCUMENTATION 09/23/20, HEIGHT=5'3 , WEIGHT=73.6 KG.
--- NOTE | 2021-07-14 13:07 | PC.ADMIT ---
Patient is a 56 year old female who presented to the unit on July 13, 2021 at 19:15. Patient comes from [facility]. Patient presents very tearful during admission assessment and interview. Patient is alert and oriented x 4. Patient reports increase in anxiety and depression. Patient self reports a history of family suicide, and pervious suicide attempts herself. History of 4 previous inpatient admission. Iin late spring/summer time I attempted to kill myself by overdosing. My room mate found me and brought me to the hospital. I was then admitted in patient. Here they gave me a whole bunch of meds, and then discharged me. I went home and overdosed again. The I was back inpatient and I got even more meds. I don't like how they made me feel. I am now dizzy a lot, I fall all the time. So I just stopped taking them . Patient reported that her mother was recently diagnosed with Alzheimer disease and moved into patients apartment. 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 Patient currently feels like I cant take care of myself and her. We both barely eat and all I do is want to sleep . Patient reports losing greater than 35 pounds without trying. Patient reports sleeping all day. Patient reported Visual hallucination of cats walking, and Auditory hallucinations of noise and music. Pt. stated The auditory hallucinations are just voices and not actually telling me to do anything . Patient stated that loud voices and people talking bother me and I get agitated. When I am agitated I will curse and throw things. I will even punch the beckwith. I punched the beckwith at [facility] last night because there was a woman talking loudly on her phone and it bothered me . Patient reported last night at [facility], I was mad and I hurt myself. I took the metal out of the mask and tried to cut my wrists. I am regretting it now because it does hurt . Patient observed with a small abrasion to the left wrist. Patient presents with low blood pressure. Patient stated that often will feel dizzy. Patient reported history of falls, with an unknown amount. Patient reports occasional urinary incontinence as well. Patient currently denies SI/HI. Patient feels safe on this unit and reports the goal for discharge is To get my meds right with as little meds as possible .
[2021-07-14] MEDS: hydrOXYzine HCL 25 MG TABLET PO (16:23)
[2021-07-14 16:39] LABS: Amphetamine Screen Urine Not Detected (Not Detect); Barbiturates, Urine Not Detected (Not Detect); Benzodiazepines Screen Urine Not Detected (Not Detect); Cannabinoid Screen Urine POSITIVE (Not Detect); Cocaine Screen Urine Not Detected (Not Detect); Fentanyl, urine POSITIVE (Not Detect); Opiate Screen Urine Not Detected (Not Detect); Phencyclidine Screen Urine Not Detected (Not Detect)
[2021-07-14 20:38] VITALS: BP 92/42; PULSE 55; RESP 16; TEMP 36.6; O2SAT 99
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
[2021-07-15 08:27] VITALS: BP 103/48; PULSE 50; RESP 14; TEMP 36.6; O2SAT 98
--- NOTE | 2021-07-15 09:40 | PC.NURSE ---
During assessment with RN patient reported feeling suicidal. Patient stated to RN I can not do this anymore. I do not want to live. I can not do anything right . Patient reported no plan stating I tried the other day at [facility], but there is no way I could do it in here . RN contacted MD paintings conservator, obtained an order, and placed patient on 5 minute safety checks.
[2021-07-15] MEDS: Bacitracin Oint 14 GM TUBE 1 APPL TOPICAL (12:38)
[2021-07-15] MEDS: LORazepam 1 MG TABLET PO ×2 (16:04→20:22)
[2021-07-15 18:00] VITALS: BP 91/48; PULSE 64; TEMP 36.8; O2SAT 99
[2021-07-15] MEDS: hydrOXYzine HCL 25 MG TABLET PO (18:24)
--- NOTE | 2021-07-15 23:25 | P.PNPSI_ITS ---
Subjective Subjective Date of Service: 07/15/21 Reason For Visit: major depressive d/o recurrent episode,moderate Subjective Notes: Conditional Voluntary Healthcare Proxy: No Guardianship: No Interim History: Patient were forthcoming regarding history of depression increasing despair noting will take care of her mother has Alzheimer's disease. List defended more forthcoming regarding ongoing depressive symptoms history of past karli. Describes worsening episodic memory concentration over the past year Medication Compliance: Yes Side effects from medications: Yes (In past) Mental Status Exam Mental Status Exam Narrative: Patient wearing hospital. Mood depressed anxious irritable angry getting hopeless helpless difficulty seeing future thoughts that she would better off denies active plan or intent in this setting. Asking for help but conflicted feeling like nothing has helped her medication just made her she states overmedicated. Difficult to engage poor historian at this time regarding medication treatment history. Does state that her therapist for back as she is generally helpful vague auditory hallucinations no clear paranoia mood instability noted impulse control adequate in the hospital better insight more cooperative in interview and with treatment asking for help l Diagnostics Vital Signs (24Hr): Vital Signs - 24 hr 07/15/21 08:27 Temperature 97.9 F Pulse Rate 50 Respiratory Rate 14 Blood Pressure 103/48 L Pulse Oximetry 98 Labs Labs: Laboratory Results - last 48 hr 07/14/21 07/14/21 07/14/21 07:31 07:31 07:31 Estimat Average Glucose 85 Hemoglobin A1c % 4.6 Magnesium 2.0 Total Creatine Kinase 72 Triglycerides 125 Cholesterol 242 LDL Cholesterol, Calc 168 HDL Cholesterol 49 Vitamin B12 1001 H Folate 10.1 TSH 1.12 Free T4 0.93 Urine Opiates Screen Urine Fentanyl Screen Ur Barbiturates Screen Ur Phencyclidine Scrn Ur Amphetamines Screen U Benzodiazepines Scrn Urine Cocaine Screen U Marijuana (THC) Screen 07/14/21 16:12 Estimat Average Glucose Hemoglobin A1c % Magnesium Total Creatine Kinase Triglycerides Cholesterol LDL Cholesterol, Calc HDL Cholesterol Vitamin B12 Folate TSH Free T4 Urine Opiates Screen Not Detected Urine Fentanyl Screen POSITIVE H Ur Barbiturates Screen Not Detected Ur Phencyclidine Scrn Not Detected Ur Amphetamines Screen Not Detected U Benzodiazepines Scrn Not Detected Urine Cocaine Screen Not Detected U Marijuana (THC) Screen POSITIVE H Medications Medications Current Medications Acetaminophen (Acetaminophen 325 Mg Tablet) 650 mg PO Q6H PRN PRN Reason: Headache/Pain Mild Scale (1-3) Last Admin: 07/14/21 07:34 Dose: 650 mg Documented by: Al Hydroxide/Mg Hydroxide (Magnesium Hydrox/Alum Hydrox 30 Ml Oral.Susp) 30 ml PO Q6H PRN PRN Reason: Heartburn/Nausea Bacitracin (Bacitracin Oint 14 Gm Tube) 1 appl TOPICAL BID [facility]; Protocol Last Admin: 07/15/21 22:14 Dose: Not Given Documented by: Hydroxyzine HCl (Hydroxyzine Hcl 25 Mg Tablet) 25 mg PO Q6H PRN PRN Reason: Anxiety Last Admin: 07/15/21 18:24 Dose: 25 mg Documented by: Lorazepam (Lorazepam 1 Mg Tablet) 1 mg PO Q4H PRN PRN Reason: Anxiety Last Admin: 07/15/21 20:22 Dose: 1 mg Documented by: Magnesium Hydroxide (Milk Of Magnesia 30 Ml Oral.Susp) 30 ml PO DAILY PRN PRN Reason: Constipation Trazodone HCl (Trazodone Hcl 50 Mg Tablet) 50 mg PO BEDTIME PRN PRN Reason: Insomnia Last Admin: 07/13/21 20:51 Dose: 50 mg Documented by: Allergies Allergies Allergy/AdvReac Type Severity Reaction Status Date / Time No Known Allergies Allergy Verified 09/13/20 14:47 Assessment & Plan Assessment & Plan (1) Bipolar II disorder, severe, depressed, with anxious distress: Status: Acute Code(s): F31.81 - Bipolar II disorder Assessment and Plan: Patient is severely depressed anxious irritable with history of poor response versus noncompliance with medication. Difficult to get a clear picture at this time agitated depression versus mixed state. Past diagnosis of depression question bipolar to. There is a family history of bipolar disorder and suicide. Patient currently disability from her job. Unable to engage at this time would and lorazepam for anxiety agitation best treatment for superficial laceration will try and discuss option of ECT will try and reach patient's therapist Patient may also be in withdrawal state and worsening symptoms unclear how long she has been off medications Monitor safety get additional history clarify diagnosis clarify medication history and response Assessment and Plan: Patient appears by history of have bipolar to PTSD question borderline traits discussed treatment options include low-dose lithium Ativan and consideration of Vryalar has failed multiple antidepressant trials Depakote Latuda felt overmedicated gait disturbance no abnormal movements noted on exam case reviewed with patient's therapist patient seen case reviewed with nursing staff chart reviewed I spent minutes with the patient and/or on the patient floor today, g reater than?50% of which was spent counseling/coordinating care. Reason for contiued inpatient stay Substantial Risk for: harm to self
[2021-07-16 09:00] VITALS: BP 96/53; PULSE 65; RESP 16; TEMP 36.5; O2SAT 96
[2021-07-16] MEDS: Bacitracin Oint 14 GM TUBE 1 APPL TOPICAL (09:26)
[2021-07-16] MEDS: Acetaminophen 325 MG TABLET 650 MG PO (09:26)
[2021-07-16] MEDS: Lithium Carbonate ER 300 MG TABLET.ER PO ×2 (12:40→20:16)
[2021-07-16] MEDS: Cariprazine HCl 1.5 MG CAPSULE PO (12:40)
[2021-07-16] MEDS: LORazepam 1 MG TABLET PO ×2 (13:49→20:16)
--- NOTE | 2021-07-16 14:48 | PC.NURSE ---
Unable to complete the MOCA on pt. due to behaviors. Pt. appeared unwilling to apply herself, thereby making results inconclusive. On one section, pt. used expletives and then got up and left the testing area.
--- NOTE | 2021-07-16 20:02 | PC.NURSE ---
Attempts to call [facility] (3 different locations) to verify creams per MD request. Pharmacy not open on Saturday. Will need to call tomorrow to verify.
[2021-07-16 20:20] VITALS: BP 101/56; PULSE 81; RESP 16; TEMP 36.1; O2SAT 98
--- NOTE | 2021-07-16 23:17 | HO.PSYCHPN ---
Subjective Subjective Date of Service: 07/16/21 Reason For Visit: major depressive d/o recurrent episode,moderate Subjective Notes: Conditional Voluntary Interim History: Patient's case reviewed with nursing staff chart reviewed patient seen. Patient irritable dysphoric complains of peroneal in vaginal rash unable to give clear history. Some difficulty with memory sequencing when giving history. Has been some isolated a motivational depressed. Agreeable to lithium and Vryalar Medication Compliance: Yes Side effects from medications: No Attending Groups: No Review of Systems Acute medical concerns: Yes Shoulder pain recent fall Mental Status Exam Mental Status Exam Narrative: Patient wearing hospital. Mood depressed flat a motivational low energy poverty of content hopeless helpless difficulty seeing future thoughts that she would better off denies active plan or intent in this setting. Asking for help but conflicted feeling like nothing has helped her medication just made her she states overmedicated. Somewhat apathetic insight limited difficulty to engage denies active self-harm no delusional material Diagnostics Vital Signs (24Hr): Vital Signs - 24 hr 07/16/21 09:00 07/16/21 20:20 Temperature 97.7 F 97 F Pulse Rate 65 81 Respiratory Rate 16 16 Blood Pressure 96/53 L 101/56 L Pulse Oximetry 96 98 Medications Medications Current Medications Acetaminophen (Acetaminophen 325 Mg Tablet) 650 mg PO Q6H PRN PRN Reason: Headache/Pain Mild Scale (1-3) Last Admin: 07/16/21 09:26 Dose: 650 mg Documented by: Al Hydroxide/Mg Hydroxide (Magnesium Hydrox/Alum Hydrox 30 Ml Oral.Susp) 30 ml PO Q6H PRN PRN Reason: Heartburn/Nausea Bacitracin (Bacitracin Oint 14 Gm Tube) 1 appl TOPICAL BID [facility]; Protocol Last Admin: 07/16/21 21:29 Dose: Not Given Documented by: Cariprazine (Cariprazine Hcl 1.5 Mg Capsule) 1.5 mg PO DAILY [facility] Last Admin: 07/16/21 12:40 Dose: 1.5 mg Documented by: Hydroxyzine HCl (Hydroxyzine Hcl 25 Mg Tablet) 25 mg PO Q6H PRN PRN Reason: Anxiety Last Admin: 07/15/21 18:24 Dose: 25 mg Documented by: [place] Carbonate ([place] Carbonate Er 300 Mg Tablet.Er) 300 mg PO BID [facility] Last Admin: 07/16/21 20:16 Dose: 300 mg Documented by: Lorazepam (Lorazepam 1 Mg Tablet) 1 mg PO Q4H PRN PRN Reason: Anxiety Last Admin: 07/16/21 20:16 Dose: 1 mg Documented by: Magnesium Hydroxide (Milk Of Magnesia 30 Ml Oral.Susp) 30 ml PO DAILY PRN PRN Reason: Constipation Trazodone HCl (Trazodone Hcl 50 Mg Tablet) 50 mg PO BEDTIME PRN PRN Reason: Insomnia Last Admin: 07/13/21 20:51 Dose: 50 mg Documented by: Allergies Allergies Allergy/AdvReac Type Severity Reaction Status Date / Time No Known Allergies Allergy Verified 09/13/20 14:47 Assessment & Plan Assessment & Plan (1) Bipolar II disorder, severe, depressed, with anxious distress: Status: Acute Code(s): F31.81 - Bipolar II disorder Assessment and Plan: Patient is severely depressed anxious irritable with history of poor response versus noncompliance with medication. Difficult to get a clear picture at this time agitated depression versus mixed state. Past diagnosis of depression question bipolar to. There is a family history of bipolar disorder and suicide. Patient currently disability from her job. Unable to engage at this time would and lorazepam for anxiety agitation best treatment for superficial laceration will try and discuss option of ECT will try and reach patient's therapist Patient may also be in withdrawal state and worsening symptoms unclear how long she has been off medications Monitor safety get additional history clarify diagnosis clarify medication history and response Assessment and Plan: Patient remains depressed withdrawn apathetic agreeable to restart low-dose lithium Vryalar will monitor carefully for side effects I spent minutes with the patient and/or on the patient floor today, greater than?50% of which was spent counseling/coordinating care. Reason for contiued inpatient stay Substantial Risk for: harm to self and rapid decompensation
[2021-07-17 10:45] VITALS: BP 109/54; PULSE 74; RESP 16; TEMP 36.9; O2SAT 99
[2021-07-17] MEDS: Lithium Carbonate ER 300 MG TABLET.ER PO ×2 (10:57→20:19)
[2021-07-17] MEDS: Cariprazine HCl 1.5 MG CAPSULE PO (10:57)
[2021-07-17 11:06] LABS: Syphilis Screen Nonreactive (Nonreactive)
[2021-07-17] MEDS: Bacitracin Oint 14 GM TUBE 1 APPL TOPICAL (11:53)
[2021-07-17 16:37] VITALS: BMI 23.9
[2021-07-17 20:09] VITALS: BP 116/60; PULSE 68; RESP 16; TEMP 36.1; O2SAT 98
[2021-07-17] MEDS: LORazepam 1 MG TABLET PO (20:19)
--- NOTE | 2021-07-17 22:41 | P.PNPSI_ITS ---
Subjective Subjective Date of Service: 07/17/21 Reason For Visit: major depressive d/o recurrent episode,moderate Subjective Notes: Conditional Voluntary Healthcare Proxy: No Medication Compliance: Yes Review of Systems Acute medical concerns: Yes Shoulder pain Mental Status Exam Mental Status Exam Narrative: Patient wearing hospital. Mood depressed flat a motivational low energy poverty of content hopeless helpless difficulty seeing future thoughts that she would better off denies active plan or intent in this setting. Asking for help but conflicted feeling like nothing has helped her medication just made her she states overmedicated. Somewhat apathetic insight limited difficulty to engage denies active self-harm no delusional material remains flat depressed a motivational irritable edge complains of shoulder pain in recent falls Diagnostics Vital Signs (24Hr): Vital Signs - 24 hr 07/17/21 10:45 07/17/21 20:09 Temperature 98.4 F 97.0 F Pulse Rate 74 68 Respiratory Rate 16 16 Blood Pressure 109/54 L 116/60 Pulse Oximetry 99 98 BMI result Body Mass Index 23.9 Labs Labs: Laboratory Results - last 48 hr 07/17/21 10:00 T.pallidum Ab (EIA) Nonreactive Imaging Radiology Impressions: ITS Impressions Shoulder X-Ray 07/17/21 19:53 IMPRESSION: No acute fractures or malalignment. Mild degenerative osteoarthritis. Shoulder X-Ray 07/17/21 19:53 IMPRESSION: No acute fractures or malalignment. Mild degenerative osteoarthritis. Medications Medications Current Medications Acetaminophen (Acetaminophen 325 Mg Tablet) 650 mg PO Q6H PRN PRN Reason: Headache/Pain Mild Scale (1-3) Last Admin: 07/16/21 09:26 Dose: 650 mg Documented by: Al Hydroxide/Mg Hydroxide (Magnesium Hydrox/Alum Hydrox 30 Ml Oral.Susp) 30 ml PO Q6H PRN PRN Reason: Heartburn/Nausea Bacitracin (Bacitracin Oint 14 Gm Tube) 1 appl TOPICAL BID [facility]; Protocol Last Admin: 07/17/21 11:53 Dose: 1 appl Documented by: Cariprazine (Cariprazine Hcl 1.5 Mg Capsule) 1.5 mg PO DAILY [facility] Last Admin: 07/17/21 10:57 Dose: 1.5 mg Documented by: Hydroxyzine HCl (Hydroxyzine Hcl 25 Mg Tablet) 25 mg PO Q6H PRN PRN Reason: Anxiety Last Admin: 07/15/21 18:24 Dose: 25 mg Documented by: [place] Carbonate ([place] Carbonate Er 300 Mg Tablet.Er) 300 mg PO BID [facility] Last Admin: 07/17/21 20:19 Dose: 300 mg Documented by: Lorazepam (Lorazepam 0.5 Mg Tablet) 0.5 mg PO Q4H PRN PRN Reason: Anxiety Magnesium Hydroxide (Milk Of Magnesia 30 Ml Oral.Susp) 30 ml PO DAILY PRN PRN Reason: Constipation Trazodone HCl (Trazodone Hcl 50 Mg Tablet) 50 mg PO BEDTIME PRN PRN Reason: Insomnia Last Admin: 07/13/21 20:51 Dose: 50 mg Documented by: Allergies Allergies Allergy/AdvReac Type Severity Reaction Status Date / Time No Known Allergies Allergy Verified 09/13/20 14:47 Assessment & Plan Assessment & Plan (1) Bipolar II disorder, severe, depressed, with anxious distress: Status: Acute Code(s): F31.81 - Bipolar II disorder Assessment and Plan: Patient is severely depressed anxious irritable with history of poor response versus noncompliance with medication. Difficult to get a clear picture at this time agitated depression versus mixed state. Past diagnosis of depression question bipolar to. There is a family history of bipolar disorder and suicide. Patient currently disability from her job. Unable to engage at this time would and lorazepam for anxiety agitation best treatment for superficial laceration will try and discuss option of ECT will try and reach patient's therapist Patient may also be in withdrawal state and worsening symptoms unclear how long she has been off medications Monitor safety get additional history clarify diagnosis clarify medication history and response Assessment and Plan: Patient remains depressed withdrawn apathetic agreeable to restart low-dose lithium Romeliaar will monitor carefully for side effects Complains of shoulder pain status post recent falls unclear patient was overusing medication or side effects from Depakote Latuda. Denies loss of consciousness Thyroid B12 folate CBC chemistries unremarkable vitamin-D pending LDL increased I spent minutes with the patient and/or on the patient floor today, greater than?50% of which was spent counseling/coordinating care. Reason for contiued inpatient stay Substantial Risk for: harm to self
--- NOTE | 2021-07-18 | ECG_ITS ---
Test Reason : PREOP ECT Blood Pressure : / mmHG Vent. Rate : 050 BPM Atrial Rate : 050 BPM P-R Int : 152 ms QRS Dur : 072 ms QT Int : 400 ms P-R-T Axes : 053 014 049 degrees QTc Int : 364 ms Sinus bradycardia Otherwise normal ECG When compared with ECG of 19-SEP-2020 15:33, Nonspecific T wave abnormality no longer evident in Inferior leads Nonspecific T wave abnormality has replaced inverted T waves in Anterior leads Referred By: Luis Hardy Electronically Signed By:ANA STEWARD MD
[2021-07-18 05:30] LABS: Lyme Abs Screen <0.90 index
[2021-07-18] MEDS: Acetaminophen 325 MG TABLET 650 MG PO ×2 (06:38→12:57)
--- NOTE | 2021-07-18 06:50 | PC.NURSE ---
hair loss-a large amount of hair loss noted. hair in bed/linens.
[2021-07-18 08:51] VITALS: BP 96/46; PULSE 94; TEMP 36.2; O2SAT 98
[2021-07-18] MEDS: Lithium Carbonate ER 300 MG TABLET.ER PO ×2 (09:24→20:09)
[2021-07-18] MEDS: Cariprazine HCl 1.5 MG CAPSULE PO (09:24)
--- NOTE | 2021-07-18 11:45 | P.PNIM_ITS ---
Subjective Subjective Date of Service: 07/18/21 Interval History: Asked to see the patient for: perineal/vag rash ect preop shoulder pain spfall Patient is seen and examined in the exam room on the unit. 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 Patient reports a cuauhtemoc-vaginal rash for months. Also reports rash near coccyx. Reports it being itch. In regards to cardiac history, she denies any. She denies any exertional chest pain or shortness of breath. Reports R shoulder pain with limited ability to raise arm. Review of Systems negative except HPI Physical Exam Vital Signs: Vital Signs: Last Vital Signs Temp 97.2 F 07/18/21 08:51 Pulse 94 07/18/21 08:51 Resp 16 07/17/21 20:09 BP 96/46 L 07/18/21 08:51 Pulse Ox 98 07/18/21 08:51 BMI result Body Mass Index 23.9 Const: Other: General - no acute distress, appears comfortable Cardiovascular - regular rate and rhythm, S1-S2 Lungs - normal respiratory effort, clear to auscultation bilaterally, no wheezing Abdomen - soft, nontender, no rebound or guarding Extremities - no edema bilaterally, able to life RUE (at shoulder joint) above the head, albeit slowly Neuro - awake and alert, no focal deficits Skin - cuauhtemoc-vaginal R sided area of redness / scaly with well circumscribed border -- outer border more erythematous and inner part more scaly Objective Data Active Medications Acetaminophen (Acetaminophen 325 Mg Tablet) 650 mg PO Q6H PRN PRN Reason: Headache/Pain Mild Scale (1-3) Last Admin: 07/18/21 06:38 Dose: 650 mg Documented by: SOCORRO Al Hydroxide/Mg Hydroxide (Magnesium Hydrox/Alum Hydrox 30 Ml Oral.Susp) 30 ml PO Q6H PRN PRN Reason: Heartburn/Nausea Bacitracin (Bacitracin Oint 14 Gm Tube) 1 appl TOPICAL BID PATSY; Protocol Last Admin: 07/18/21 09:24 Dose: Not Given Documented by: HARPAL Non-Admin Reason: Patient Refused Cariprazine (Cariprazine Hcl 1.5 Mg Capsule) 1.5 mg PO DAILY PATSY Last Admin: 07/18/21 09:24 Dose: 1.5 mg Documented by: HARPAL Hydroxyzine HCl (Hydroxyzine Hcl 25 Mg Tablet) 25 mg PO Q6H PRN PRN Reason: Anxiety Last Admin: 07/15/21 18:24 Dose: 25 mg Documented by: STEPHY [place] Carbonate ([place] Carbonate Er 300 Mg Tablet.Er) 300 mg PO BID PATSY Last Admin: 07/18/21 09:24 Dose: 300 mg Documented by: HARPAL Lorazepam (Lorazepam 0.5 Mg Tablet) 0.5 mg PO Q4H PRN PRN Reason: Anxiety Magnesium Hydroxide (Milk Of Magnesia 30 Ml Oral.Susp) 30 ml PO DAILY PRN PRN Reason: Constipation Trazodone HCl (Trazodone Hcl 50 Mg Tablet) 50 mg PO BEDTIME PRN PRN Reason: Insomnia Last Admin: 07/13/21 20:51 Dose: 50 mg Documented by: ÓSCAR Trolamine Salicylate/Aloe Vera (Trolamine Salicylate 10%/Aloe Cream 35.4 Gm) 1 appl TOPICAL QID PRN PRN Reason: Pain, Mild (Pain Scale 1-3) Last Admin: 07/18/21 06:41 Dose: 1 appl Documented by: SOCORRO Labs Labs: Laboratory Results - last 24 hr 07/17/21 10:00 Lyme Screen IgG & IgM <0.90 Lyme Progressive Test TNP Assessment and Plan (1) Preoperative cardiovascular examination: Status: Acute Assessment and Plan: 56 yo F admitted to the inpatient psych unit. Medical re-consult for evaluation of rash + shoulder pain + pre-operative evaluation for ECT. 1. Suspected fungal rash (cuauhtemoc-vaginal, coccyx Clotrimazole BID for at least 1 week, may need to treat beyond that if not improved 2. Shoulder pain negative XR for fx/dislocation can try tylenol for pain can f/u outpatient with pcp/orthopedics if persists 3. Pre-operative evaluation for ECT Patient denies any CAD history. No recent labs or EKG in our system. Will check EKG. If routine labs not done at prior facility, would recommend checking them prior to ECT. If the EKG does not show any acute findings and labs do not show any significant abnormalities, she would need no further work up prior to ECT. Quality Stroke Does the patient have a stroke diagnosis?: No VTE Prior VTE?: No VTE Risk Level:: Medical - low (on the psych floor -- defer to them) VTE Device Contraindication: Treatment Not Indicated (on the psych floor -- defer to them) VTE Drug Contraindication: Treatment Not Indicated (on the psych floor -- defer to them)
[2021-07-18] MEDS: Clotrimazole 1 % Cream 15 GM TUBE 1 APPL TOPICAL ×2 (12:29→18:38)
[2021-07-18 13:51] LABS: CRP High Sensitivity 0.6 mg/L
[2021-07-18 20:01] VITALS: BP 109/60; PULSE 83; RESP 16; TEMP 36.4; O2SAT 97
[2021-07-18] MEDS: traZODone HCL 50 MG TABLET PO ×2 (20:09→22:11)
[2021-07-18] MEDS: LORazepam 0.5 MG TABLET PO (20:09)
--- NOTE | 2021-07-18 20:53 | P.PNPSI_ITS ---
Subjective Subjective Date of Service: 07/18/21 Reason For Visit: major depressive d/o recurrent episode,moderate Interim History: pt reports she had been on lithium for a long time and that seemed to work well, but it was stopped about a year ago while inpatient here. she does not know why. inquires as to her bipolar diagnosis and she does endorse periods of decreased need for sleep, heedless spending, and risky sexual practices. no evidence of renal impairment seen in the chart. discuss her options of trialing wellbutrin, which she had been on in the distant past and could not recall if it was helpful, versus moving ahead with ECT. she reports she would like to proceed with ECT. she was seen by the hospitalist today and was medically cleared with the suggestion of completing labs at [facility] [place]. ponce was notified of her desire to move forward with the treatment. recent labs reviewed, pt was informed she has not had lyme Dz. per staff, pt continues to have cuauhtemoc-area rash. no shoulder Fx per radiology. quiet evening. got ativan at HS. no SI, safe on unit. Mental Status Exam Mental Status Exam Narrative: appropriately dressed and groomed, cooperative with interview, mild PMR. speech somewhat slowed and sparse. thoughts linear and logical. affect constricted, min-labile - some periods of tearfulness, appropriate to context, normo-intense. mood depressed. no SI/HI/AVH expressed. Diagnostics Vital Signs (24Hr): Vital Signs - 24 hr 07/18/21 08:51 07/18/21 20:01 Temperature 97.2 F 97.5 F Pulse Rate 94 83 Respiratory Rate 16 Blood Pressure 96/46 L 109/60 Pulse Oximetry 98 97 BMI result Body Mass Index 23.9 Labs Labs: Laboratory Results - last 48 hr 07/17/21 07/17/21 07/17/21 10:00 10:00 10:00 C-React Prot High Sens 0.6 T.pallidum Ab (EIA) Nonreactive Lyme Screen IgG & IgM <0.90 Lyme Progressive Test TNP Imaging Radiology Impressions: ITS Impressions Shoulder X-Ray 07/17/21 19:53 IMPRESSION: No acute fractures or malalignment. Mild degenerative osteoarthritis. Shoulder X-Ray 07/17/21 19:53 IMPRESSION: No acute fractures or malalignment. Mild degenerative osteoarthritis. Medications Medications Current Medications Acetaminophen (Acetaminophen 325 Mg Tablet) 650 mg PO Q6H PRN PRN Reason: Headache/Pain Mild Scale (1-3) Last Admin: 07/18/21 12:57 Dose: 650 mg Documented by: Al Hydroxide/Mg Hydroxide (Magnesium Hydrox/Alum Hydrox 30 Ml Oral.Susp) 30 ml PO Q6H PRN PRN Reason: Heartburn/Nausea Bacitracin (Bacitracin Oint 14 Gm Tube) 1 appl TOPICAL BID PATSY; Protocol Last Admin: 07/18/21 20:16 Dose: Not Given Documented by: Cariprazine (Cariprazine Hcl 1.5 Mg Capsule) 1.5 mg PO DAILY PATSY Last Admin: 07/18/21 09:24 Dose: 1.5 mg Documented by: Clotrimazole (Clotrimazole 1 % Cream 15 Gm Tube) 1 appl TOPICAL BID PATSY; Protocol Stop: 07/25/21 11:59 Last Admin: 07/18/21 18:38 Dose: 1 appl Documented by: Hydroxyzine HCl (Hydroxyzine Hcl 25 Mg Tablet) 25 mg PO Q6H PRN PRN Reason: Anxiety Last Admin: 07/15/21 18:24 Dose: 25 mg Documented by: [place] Carbonate ([place] Carbonate Er 300 Mg Tablet.Er) 300 mg PO BID PATSY Last Admin: 07/18/21 20:09 Dose: 300 mg Documented by: Lorazepam (Lorazepam 0.5 Mg Tablet) 0.5 mg PO Q4H PRN PRN Reason: Anxiety Last Admin: 07/18/21 20:09 Dose: 0.5 mg Documented by: Magnesium Hydroxide (Milk Of Magnesia 30 Ml Oral.Susp) 30 ml PO DAILY PRN PRN Reason: Constipation Trazodone HCl (Trazodone Hcl 50 Mg Tablet) 50 mg PO BEDTIME PRN PRN Reason: Insomnia Last Admin: 07/18/21 20:09 Dose: 50 mg Documented by: Trolamine Salicylate/Aloe Vera (Trolamine Salicylate 10%/Aloe Cream 35.4 Gm) 1 appl TOPICAL QID PRN PRN Reason: Pain, Mild (Pain Scale 1-3) Last Admin: 07/18/21 20:11 Dose: 1 appl Documented by: Allergies Allergies Allergy/AdvReac Type Severity Reaction Status Date / Time No Known Allergies Allergy Verified 09/13/20 14:47 Assessment & Plan Assessment & Plan (1) Bipolar II disorder, severe, depressed, with anxious distress: Status: Acute Code(s): F31.81 - Bipolar II disorder (2) Preoperative cardiovascular examination: Status: Acute Code(s): Z01.810 - Encounter for preprocedural cardiovascular examination Assessment and Plan: 56 yo F admitted to the inpatient psych unit. Medical re-consult for evaluation of rash + shoulder pain + pre-operative evaluation for ECT. 1. Suspected fungal rash (cuauhtemoc-vaginal, coccyx Clotrimazole BID for at least 1 week, may need to treat beyond that if not improved 2. Shoulder pain negative XR for fx/dislocation can try tylenol for pain can f/u outpatient with pcp/orthopedics if persists 3. Pre-operative evaluation for ECT Patient denies any CAD history. No recent labs or EKG in our system. Will check EKG. If routine labs not done at prior facility, would recommend checking them prior to ECT. If the EKG does not show any acute findings and labs do not show any significant abnormalities, she would need no further work up prior to ECT. Assessment and Plan: Patient is severely depressed anxious irritable with history of poor response versus noncompliance with medication.? Difficult to get a clear picture at this time agitated depression versus mixed state.? Past diagnosis of depression question bipolar to.? There is a family history of bipolar disorder and suicide.? Patient currently disability from her job.? Unable to engage at this time would and lorazepam for anxiety agitation best treatment for superficial laceration will try and discuss option of ECT will try and reach patient's therapist Patient may also be in withdrawal state and worsening symptoms unclear how long she has been off medications Monitor safety get additional history clarify diagnosis clarify medication history and response ?Assessment and Plan: Patient remains depressed withdrawn apathetic agreeable to restart low-dose lithium Vryalar will monitor carefully for side effects Complains of shoulder pain status post recent falls unclear patient was overusing medication or side effects from Depakote Latuda.? Denies loss of consciousness Thyroid B12 folate CBC chemistries unremarkable vitamin-D pending LDL? increased lyme Ab NEG. medically cleared for ECT. pt would like to start ECT here and now. I spent minutes with the patient and/or on the patient floor today, greater than?50% of which was spent counseling/coordinating care. Reason for contiued inpatient stay Substantial Risk for: harm to self
[2021-07-18] MEDS: hydrOXYzine HCL 25 MG TABLET PO (22:11)
[2021-07-18 22:58] LABS: Alanine Aminotransferase 18 U/L (0-31); Albumin Level 3.8 g/dL (3.5-5.0); Alkaline Phosphatase 75 U/L (39-117); Anion Gap 6 (12-20); Aspartate Amino Transferase 22 U/L (5-31); Bilirubin Total 0.4 mg/dL (0.0-1.0); Blood Urea Nitrogen 12 mg/dL (9-16); Calcium 9.8 mg/dL (8.4-10.2); Carbon Dioxide 30 mmol/L (22-29); Chloride 108 mmol/L (96-108); Estimated Glomerular Filt Rate > 60; Glucose Random 90 mg/dL (60-115); Potassium 3.9 mmol/L (3.3-5.1); Sodium 140 mmol/L (135-145); Total Protein 6.6 g/dL (6.5-8.0)
[2021-07-19 07:33] LABS: MANUAL DIFF FLAG NO
[2021-07-19 07:42] LABS: Basophils Percent Auto 0.6 % (0-2); Eosinophils Absolute Auto 0.4 X10*3/uL (0.0-0.4); Eosinophils Percent Auto 5.3 % (0-4); Hematocrit 32.7 % (37.0-47.0); Imm Gran Abs Auto 0.02 X10*3/uL (0.00-0.03); Imm Gran Pct Auto 0.3 % (0.0-0.4); Lymphocytes Absolute Auto 2.3 X10*3/uL (1.2-4.9); Lymphocytes Percent Auto 34.1 % (20-40); Mean Corpuscular HGB Conc 33.6 g/dl (31.0-35.0); Mean Corpuscular Hemoglobin 32.8 pg (27.0-33.0); Mean Corpuscular Volume 97.6 fL (80.0-98.0); Mean Platelet Volume 10.1 fL (9.4-12.3); Monocytes Absolute Auto 0.5 X10*3/uL (0.1-1.2); Monocytes Percent Auto 8.2 % (2-11); Neutrophils Absolute Auto 3.4 x10*3/uL (2.0-8.3); Neutrophils Percent Auto 51.5 % (45-73); Platelet Count 189 X10*3/uL (160-400); Red Blood Count 3.35 X10*6/uL (4.20-5.50); Red Cell Distribution Width 13.9 % (11.0-16.0); White Blood Count 6.6 X10*3/uL (4.8-10.8)
[2021-07-19 07:46] LABS: Lithium 0.65 mmol/L (0.60-1.20)
[2021-07-19 07:53] LABS: Anion Gap 7 (12-20); Blood Urea Nitrogen 11 mg/dL (9-16); Calcium 9.8 mg/dL (8.4-10.2); Carbon Dioxide 28 mmol/L (22-29); Chloride 110 mmol/L (96-108); Estimated Glomerular Filt Rate > 60; Glucose Fasting 88 mg/dL (60-99); Potassium 3.6 mmol/L (3.3-5.1); Sodium 141 mmol/L (135-145)
[2021-07-19 09:10] VITALS: BP 107/56; PULSE 70; RESP 16; TEMP 37.1; O2SAT 98
[2021-07-19] MEDS: Cariprazine HCl 1.5 MG CAPSULE PO (09:18)
[2021-07-19] MEDS: Lithium Carbonate ER 300 MG TABLET.ER PO ×2 (09:18→21:44)
[2021-07-19] MEDS: Clotrimazole 1 % Cream 15 GM TUBE 1 APPL TOPICAL ×2 (09:19→21:47)
[2021-07-19] MEDS: Bacitracin Oint 14 GM TUBE 1 APPL TOPICAL (09:20)
[2021-07-19] MEDS: Acetaminophen 325 MG TABLET 650 MG PO (09:25)
--- NOTE | 2021-07-19 12:27 | HO.PSYCHPN ---
Subjective Subjective Date of Service: 07/19/21 Reason For Visit: major depressive d/o recurrent episode,moderate Interim History: pt found seated in milieu watching TV. readily comes to interview room for discussion. states her state has not changed any from yesterday. her mood is thumbs down, and she denies SI since the third day of her hospitalization. discussion centers around whether she would like to stay here for course of ECT, which would take about a month, or if she would rather skip ECT and discharge home to continue medication trials. pros and cons discussed, pt will consider the matter and let me know in the next 24 hours. today's labs unremarkable aside from anemia. Mental Status Exam Mental Status Exam Narrative: appropriately dressed and groomed, cooperative with interview, mild PMR. speech somewhat slowed and sparse. thoughts linear and logical. affect constricted, min-labile - a period of tearfulness, appropriate to context, normo-intense. mood depressed. denies SI since 3rd day in hospital. no HI/AVH expressed. Diagnostics Vital Signs (24Hr): Vital Signs - 24 hr 07/18/21 20:01 Temperature 97.5 F Pulse Rate 83 Respiratory Rate 16 Blood Pressure 109/60 Pulse Oximetry 97 BMI result Body Mass Index 23.9 Labs Results: 07/19/21 07:27 07/19/21 07:27 Labs: Laboratory Results - last 48 hr 07/17/21 07/17/21 07/18/21 10:00 10:00 22:29 WBC RBC Hgb Hct MCV MCH MCHC RDW Plt Count MPV Immature Gran % (Auto) Neut % (Auto) Lymph % (Auto) [place] % (Auto) Eos % (Auto) Baso % (Auto) Lymph # (Auto) [place] # (Auto) Eos # (Auto) Baso # (Auto) Abs Immat Gran (auto) Absolute Neuts (auto) Absolute Nucleated RBC Nucleated RBC % (auto) Sodium 140 Potassium 3.9 Chloride 108 Carbon Dioxide 30 H Anion Gap 6 L BUN 12 Creatinine 0.77 Estim Creat Clear Calc 69.0 Estimated GFR > 60 Random Glucose 90 Fasting Glucose Calcium 9.8 Total Bilirubin 0.4 AST 22 D ALT 18 Alkaline Phosphatase 75 C-React Prot High Sens 0.6 Total Protein 6.6 Albumin 3.8 [place] Lyme Screen IgG & IgM <0.90 Lyme Progressive Test TNP 07/19/21 07/19/2107/19/22 07:27 07:27 07:27 WBC 6.6 RBC 3.35 L Hgb 11.0 L Hct 32.7 L MCV 97.6 MCH 32.8 MCHC 33.6 RDW 13.9 Plt Count 189 MPV 10.1 Immature Gran % (Auto) 0.3 Neut % (Auto) 51.5 Lymph % (Auto) 34.1 [place] % (Auto) 8.2 Eos % (Auto) 5.3 H Baso % (Auto) 0.6 Lymph # (Auto) 2.3 [place] # (Auto) 0.5 Eos # (Auto) 0.4 Baso # (Auto) 0.0 Abs Immat Gran (auto) 0.02 Absolute Neuts (auto) 3.4 Absolute Nucleated RBC 0.000 Nucleated RBC % (auto) 0.0 Sodium 141 Potassium 3.6 Chloride 110 H Carbon Dioxide 28 Anion Gap 7 L BUN 11 Creatinine 0.70 Estim Creat Clear Calc 76.0 Estimated GFR > 60 Random Glucose Fasting Glucose 88 Calcium 9.8 Total Bilirubin AST ALT Alkaline Phosphatase C-React Prot High Sens Total Protein Albumin [place] 0.65 Lyme Screen IgG & IgM Lyme Progressive Test Imaging Radiology Impressions: ITS Impressions Shoulder X-Ray 07/17/21 19:53 IMPRESSION: No acute fractures or malalignment. Mild degenerative osteoarthritis. Shoulder X-Ray 07/17/21 19:53 IMPRESSION: No acute fractures or malalignment. Mild degenerative osteoarthritis. Medications Medications Current Medications Acetaminophen (Acetaminophen 325 Mg Tablet) 650 mg PO Q6H PRN PRN Reason: Headache/Pain Mild Scale (1-3) Last Admin: 07/19/21 09:25 Dose: 650 mg Documented by: Al Hydroxide/Mg Hydroxide (Magnesium Hydrox/Alum Hydrox 30 Ml Oral.Susp) 30 ml PO Q6H PRN PRN Reason: Heartburn/Nausea Bacitracin (Bacitracin Oint 14 Gm Tube) 1 appl TOPICAL BID PATSY; Protocol Last Admin: 07/19/21 09:20 Dose: 1 appl Documented by: Cariprazine (Cariprazine Hcl 1.5 Mg Capsule) 1.5 mg PO DAILY PATSY Last Admin: 07/19/21 09:18 Dose: 1.5 mg Documented by: Clotrimazole (Clotrimazole 1 % Cream 15 Gm Tube) 1 appl TOPICAL BID PATSY; Protocol Stop: 07/25/21 11:59 Last Admin: 07/19/21 09:19 Dose: 1 appl Documented by: Hydroxyzine HCl (Hydroxyzine Hcl 25 Mg Tablet) 25 mg PO Q6H PRN PRN Reason: Anxiety Last Admin: 07/18/21 22:11 Dose: 25 mg Documented by: [place] Carbonate ([place] Carbonate Er 300 Mg Tablet.Er) 300 mg PO BID [facility] Last Admin: 07/19/21 09:18 Dose: 300 mg Documented by: Lorazepam (Lorazepam 0.5 Mg Tablet) 0.5 mg PO Q4H PRN PRN Reason: Anxiety Last Admin: 07/18/21 20:09 Dose: 0.5 mg Documented by: Magnesium Hydroxide (Milk Of Magnesia 30 Ml Oral.Susp) 30 ml PO DAILY PRN PRN Reason: Constipation Trazodone HCl (Trazodone Hcl 50 Mg Tablet) 50 mg PO BEDTIME PRN PRN Reason: Insomnia Last Admin: 07/18/21 22:11 Dose: 50 mg Documented by: Trolamine Salicylate/Aloe Vera (Trolamine Salicylate 10%/Aloe Cream 35.4 Gm) 1 appl TOPICAL QID PRN PRN Reason: Pain, Mild (Pain Scale 1-3) Last Admin: 07/19/21 09:20 Dose: 1 appl Documented by: Allergies Allergies Allergy/AdvReac Type Severity Reaction Status Date / Time No Known Allergies Allergy Verified 09/13/20 14:47 Assessment & Plan Assessment & Plan (1) Bipolar II disorder, severe, depressed, with anxious distress: Status: Acute Code(s): F31.81 - Bipolar II disorder (2) Preoperative cardiovascular examination: Status: Acute Code(s): Z01.810 - Encounter for preprocedural cardiovascular examination Assessment and Plan: 56 yo F admitted to the inpatient psych unit. Medical re-consult for evaluation of rash + shoulder pain + pre-operative evaluation for ECT. 1. Suspected fungal rash (cuauhtemoc-vaginal, coccyx Clotrimazole BID for at least 1 week, may need to treat beyond that if not improved 2. Shoulder pain negative XR for fx/dislocation can try tylenol for pain can f/u outpatient with pcp/orthopedics if persists 3. Pre-operative evaluation for ECT Patient denies any CAD history. No recent labs or EKG in our system. Will check EKG. If routine labs not done at prior facility, would recommend checking them prior to ECT. If the EKG does not show any acute findings and labs do not show any significant abnormalities, she would need no further work up prior to ECT. Assessment and Plan: Patient is severely depressed anxious irritable with history of poor response versus noncompliance with medication.? Difficult to get a clear picture at this time agitated depression versus mixed state.? Past diagnosis of depression question bipolar to.? There is a family history of bipolar disorder and suicide.? Patient currently disability from her job.? Unable to engage at this time would and lorazepam for anxiety agitation best treatment for superficial laceration will try and discuss option of ECT will try and reach patient's therapist Patient may also be in withdrawal state and worsening symptoms unclear how long she has been off medications Monitor safety get additional history clarify diagnosis clarify medication history and response ?Assessment and Plan: Patient remains depressed withdrawn apathetic agreeable to restart low-dose lithium Vrforrestar will monitor carefully for side effects Complains of shoulder pain status post recent falls unclear patient was overusing medication or side effects from Depakote Latuda.? Denies loss of consciousness Thyroid B12 folate CBC chemistries unremarkable vitamin-D pending LDL? increased lyme Ab NEG. verify medical clearance for ECT. whether or not pt will pursue ECT TBD. I spent minutes with the patient and/or on the patient floor today, greater than?50% of which was spent counseling/coordinating care. Reason for contiued inpatient stay Substantial Risk for: harm to self, inability to function and rapid decompensation
[2021-07-19 20:33] VITALS: BP 92/52; PULSE 66; RESP 16; TEMP 36.5; O2SAT 98
[2021-07-19] MEDS: traZODone HCL 50 MG TABLET PO (21:45)
[2021-07-20 07:00] VITALS: BMI 24.3
[2021-07-20 09:30] VITALS: BP 102/64; PULSE 86; RESP 16; TEMP 36.3; O2SAT 99
[2021-07-20] MEDS: LORazepam 0.5 MG TABLET PO ×2 (09:39→21:02)
[2021-07-20] MEDS: Clotrimazole 1 % Cream 15 GM TUBE 1 APPL TOPICAL ×2 (11:38→21:03)
[2021-07-20] MEDS: Acetaminophen 325 MG TABLET 650 MG PO ×3 (11:39→21:00)
[2021-07-20] MEDS: Lithium Carbonate ER 300 MG TABLET.ER PO ×2 (11:39→21:02)
[2021-07-20] MEDS: Lidocaine 4 % Patch ADH..PATCH 2 PATCH TRANSDERMA (11:40)
--- NOTE | 2021-07-20 13:01 | PC.NURSE ---
Pt. scored a 23/30 on the MOCA. Therefore, pt. is outside normal limits for pt.'s age and education status. MD and RN have been notified of results.
--- NOTE | 2021-07-20 16:25 | P.PNPSI_ITS ---
Subjective Subjective Date of Service: 07/20/21 Reason For Visit: major depressive d/o recurrent episode,moderate Interim History: pt demonstrates course tremor in the hands B/L. although it does not appear to be a parkinsonian tremor, recent lithium level is very low and pt is not likely lithium toxic. proposes this may be a benign side effect of the lithium but suggests decreasing vraylar dose a bit to see if it affects the situation. agree to draw lithium level tomorrow, as today is day #5 on lithium at this dose. pt interested in lidocaine patches for shoulders, which will be trialled today. 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 MoCA today , will order CT brain due to apparent MCI. per staff, active, appropriate. depression 11/21, anx 12/22. no SI. + grps. reported to staff nurse yesterday she doesn't want ECT. Mental Status Exam Mental Status Exam Narrative: appropriately dressed and groomed, cooperative with interview, mild P MR. speech somewhat slowed and sparse. thoughts linear and logical. affect constricted, non-labile, appropriate to context, normo-intense. mood depressed. denies SI since 3rd day in hospital. no HI/AVH expressed. Diagnostics Vital Signs (24Hr): Vital Signs - 24 hr 07/19/21 20:33 07/20/21 09:30 Temperature 97.7 F 97.3 F Pulse Rate 66 86 Respiratory Rate 16 16 Blood Pressure 92/52 L 102/64 Pulse Oximetry 98 99 BMI result Body Mass Index 24.3 Labs Results: 07/19/21 07:27 07/19/21 07:27 Labs: Laboratory Results - last 48 hr 07/18/21 07/19/21 07/19/21 22:29 07:27 07:27 WBC 6.6 RBC 3.35 L Hgb 11.0 L Hct 32.7 L MCV 97.6 MCH 32.8 MCHC 33.6 RDW 13.9 Plt Count 189 MPV 10.1 Immature Gran % (Auto) 0.3 Neut % (Auto) 51.5 Lymph % (Auto) 34.1 [place] % (Auto) 8.2 Eos % (Auto) 5.3 H Baso % (Auto) 0.6 Lymph # (Auto) 2.3 [place] # (Auto) 0.5 Eos # (Auto) 0.4 Baso # (Auto) 0.0 Abs Immat Gran (auto) 0.02 Absolute Neuts (auto) 3.4 Absolute Nucleated RBC 0.000 Nucleated RBC % (auto) 0.0 Sodium 140 141 Potassium 3.9 3.6 Chloride 108 110 H Carbon Dioxide 30 H 28 Anion Gap 6 L 7 L BUN 12 11 Creatinine 0.77 0.70 Estim Creat Clear Calc 69.0 76.0 Estimated GFR > 60 > 60 Random Glucose 90 Fasting Glucose 88 Calcium 9.8 9.8 Total Bilirubin 0.4 AST 22 D ALT 18 Alkaline Phosphatase 75 Total Protein 6.6 Albumin 3.8 [place] 07/19/21 07:27 WBC RBC Hgb Hct MCV MCH MCHC RDW Plt Count MPV Immature Gran % (Auto) Neut % (Auto) Lymph % (Auto) [place] % (Auto) Eos % (Auto) Baso % (Auto) Lymph # (Auto) [place] # (Auto) Eos # (Auto) Baso # (Auto) Abs Immat Gran (auto) Absolute Neuts (auto) Absolute Nucleated RBC Nucleated RBC % (auto) Sodium Potassium Chloride Carbon Dioxide Anion Gap BUN Creatinine Estim Creat Clear Calc Estimated GFR Random Glucose Fasting Glucose Calcium Total Bilirubin AST ALT Alkaline Phosphatase Total Protein Albumin [place] 0.65 Imaging Radiology Impressions: ITS Impressions Shoulder X-Ray 07/17/21 19:53 IMPRESSION: No acute fractures or malalignment. Mild degenerative osteoarthritis. Shoulder X-Ray 07/17/21 19:53 IMPRESSION: No acute fractures or malalignment. Mild degenerative osteoarthritis. Head CT 07/20/21 14:43 IMPRESSION: No evidence of acute intracranial hemorrhage or edematous territorial infarction. Medications Medications Current Medications Acetaminophen (Acetaminophen 325 Mg Tablet) 650 mg PO QID [facility] Last Admin: 07/20/21 11:39 Dose: 650 mg Documented by: Al Hydroxide/Mg Hydroxide (Magnesium Hydrox/Alum Hydrox 30 Ml Oral.Susp) 30 ml PO Q6H PRN PRN Reason: Heartburn/Nausea Bacitracin (Bacitracin Oint 14 Gm Tube) 1 appl TOPICAL BID [facility]; Protocol Last Admin: 07/20/21 11:07 Dose: Not Given Documented by: Cariprazine (Cariprazine Hcl 1.5 Mg Capsule) 1 mg PO DAILY [facility] Clotrimazole (Clotrimazole 1 % Cream 15 Gm Tube) 1 appl TOPICAL BID [facility]; Protocol Stop: 07/25/21 11:59 Last Admin: 07/20/21 11:38 Dose: 1 appl Documented by: Docusate Sodium (Docusate Sodium 100 Mg Capsule) 100 mg PO BID [facility] Hydroxyzine HCl (Hydroxyzine Hcl 25 Mg Tablet) 25 mg PO Q6H PRN PRN Reason: Anxiety Last Admin: 07/18/21 22:11 Dose: 25 mg Documented by: Lidocaine (Lidocaine 4 % Patch Adh..Patch) 2 patch TRANSDERMA DAILY [facility]; Protocol Last Admin: 07/20/21 11:40 Dose: 2 patch Documented by: [place] Carbonate ([place] Carbonate Er 300 Mg Tablet.Er) 300 mg PO BID [facility] Last Admin: 07/20/21 11:39 Dose: 300 mg Documented by: Lorazepam (Lorazepam 0.5 Mg Tablet) 0.5 mg PO Q4H PRN PRN Reason: Anxiety Last Admin: 07/20/21 09:39 Dose: 0.5 mg Documented by: Magnesium Hydroxide (Milk Of Magnesia 30 Ml Oral.Susp) 30 ml PO DAILY PRN PRN Reason: Constipation Senna (Sennosides 8.6 Mg Tablet) 8.6 mg PO BID [facility] Trazodone HCl (Trazodone Hcl 50 Mg Tablet) 50 mg PO BEDTIME PRN PRN Reason: Insomnia Last Admin: 07/19/21 21:45 Dose: 50 mg Documented by: Trolamine Salicylate/Aloe Vera (Trolamine Salicylate 10%/Aloe Cream 35.4 Gm) 1 appl TOPICAL QID PRN PRN Reason: Pain, Mild (Pain Scale 1-3) Last Admin: 07/19/21 09:20 Dose: 1 appl Documented by: Allergies Allergies Allergy/AdvReac Type Severity Reaction Status Date / Time No Known Allergies Allergy Verified 09/13/20 14:47 Assessment & Plan Assessment & Plan (1) Bipolar II disorder, severe, depressed, with anxious distress: Status: Acute Code(s): F31.81 - Bipolar II disorder (2) Preoperative cardiovascular examination: Status: Acute Code(s): Z01.810 - Encounter for preprocedural cardiovascular examination Assessment and Plan: 56 yo F admitted to the inpatient psych unit. Medical re-consult for evaluation of rash + shoulder pain + pre-operative evaluation for ECT. 1. Suspected fungal rash (cuauhtemoc-vaginal, coccyx Clotrimazole BID for at least 1 week, may need to treat beyond that if not improved 2. Shoulder pain negative XR for fx/dislocation can try tylenol for pain can f/u outpatient with pcp/orthopedics if persists 3. Pre-operative evaluation for ECT Patient denies any CAD history. No recent labs or EKG in our system. Will check EKG. If routine labs not done at prior facility, would recommend checking them prior to ECT. If the EKG does not show any acute findings and labs do not show any significant abnormalities, she would need no further work up prior to ECT. Assessment and Plan: Patient is severely depressed anxious irritable with history of poor response versus noncompliance with medication.? Difficult to get a clear picture at this time agitated depression versus mixed state.? Past diagnosis of depression question bipolar to.? There is a family history of bipolar disorder and suicide.? Patient currently disability from her job.? Unable to engage at this time would and lorazepam for anxiety agitation best treatment for superficial laceration will try and discuss option of ECT will try and reach patient's therapist Patient may also be in withdrawal state and worsening symptoms unclear how long she has been off medications Monitor safety get additional history clarify diagnosis clarify medication history and response ? Patient remains depressed withdrawn apathetic agreeable to restart low-dose lithium Vryalar will monitor carefully for side effects Complains of shoulder pain status post recent falls unclear patient was overusi ng medication or side effects from Depakote Latuda.? Denies loss of consciousness Thyroid B12 folate CBC chemistries unremarkable vitamin-D pending LDL? increased lyme Ab NEG. medically cleared for ECT. ECT #1 planned for tomorrow morning. vraylar decreased from 1.5 mg daily to 1 mg daily as of 07/21. I spent minutes with the patient and/or on the patient floor today, greater than?50% of which was spent counseling/coordinating care. Reason for contiued inpatient stay Substantial Risk for: harm to self, inability to function and rapid decompensation
[2021-07-20 16:56] LABS: COVID-19 Test Negative (Negative)
[2021-07-20 18:00] VITALS: BP 110/53; PULSE 74; RESP 16; TEMP 36.4; O2SAT 98
[2021-07-20] MEDS: Docusate Sodium 100 MG CAPSULE PO (21:03)
[2021-07-20] MEDS: Sennosides 8.6 MG TABLET PO (21:03)
[2021-07-21] MEDS: Acetaminophen 325 MG TABLET 650 MG PO ×4 (10:17→21:33)
[2021-07-21] MEDS: Cariprazine HCl 1.5 MG CAPSULE PO (10:17)
[2021-07-21] MEDS: Sennosides 8.6 MG TABLET PO ×2 (10:17→21:32)
[2021-07-21] MEDS: Docusate Sodium 100 MG CAPSULE PO ×2 (10:17→21:32)
[2021-07-21] MEDS: Lidocaine 4 % Patch ADH..PATCH 2 PATCH TRANSDERMA (10:18)
[2021-07-21] MEDS: Lithium Carbonate ER 300 MG TABLET.ER PO ×2 (10:18→21:32)
[2021-07-21 11:09] VITALS: BP 120/71; PULSE 76; RESP 16; O2SAT 97
[2021-07-21 12:52] LABS: Vitamin D 25-OH, D2 <4 ng/mL; Vitamin D 25-OH, D3 15 ng/mL; Vitamin D 25-OH, Total 15 ng/mL (30-100)
[2021-07-21 13:07] VITALS: BMI 24.3
--- NOTE | 2021-07-21 14:36 | HO.PSYCHPN ---
Subjective Subjective Date of Service: 07/21/21 Reason For Visit: major depressive d/o recurrent episode,moderate Interim History: pt reports she does not want to pursue ECT. she spoke with her outpt therapist who was surprised at the idea and reminded her that she HAS done well on medication in the past. pt reports she does feel a little bit better than when she came in and the medications she is on now have worked for her in the past. she would like to give it more time. she does c/o ongoing tremor, lithium level noted to be low-therapeutic. she is agreeable to use ativan and propranolol PRN. feels lidocaine patches are helpful for her pain. per staff, pt declined to go for ECT today, stating she no longer wishes to pursue it. no other notable report. Mental Status Exam Mental Status Exam Narrative: appropriately dressed and groomed, cooperative with interview, mild PMR. speech somewhat slowed and sparse. thoughts linear and logical. affect constricted, non-labile, appropriate to context, normo-intense. mood better. denies SI since 3rd day in hospital. no HI/AVH expressed. Diagnostics Vital Signs (24Hr): Vital Signs - 24 hr 07/20/21 18:00 07/21/21 11:09 Temperature 97.6 F Pulse Rate 74 76 Respiratory Rate 16 16 Blood Pressure 110/53 L 120/71 Pulse Oximetry 98 97 BMI result Body Mass Index 24.3 Labs Results: 07/19/21 07:27 07/19/21 07:27 Labs: Laboratory Results - last 48 hr 07/17/21 07/20/21 07/21/21 10:00 16:15 08:33 25-OH Vitamin D Total 15 L 25-Hydroxy Vitamin D2 <4 25-Hydroxy Vitamin D3 15 [place] 0.70 COVID-19 ([facility]) Negative COVID-19 Clin Com See Note Imaging Radiology Impressions: ITS Impressions Shoulder X-Ray 07/17/21 19:53 IMPRESSION: No acute fractures or malalignment. Mild degenerative osteoarthritis. Shoulder X-Ray 07/17/21 19:53 IMPRESSION: No acute fractures or malalignment. Mild degenerative osteoarthritis. Head CT 07/20/21 14:43 IMPRESSION: No evidence of acute intracranial hemorrhage or edematous territorial infarction. Medications Medications Current Medications Acetaminophen (Acetaminophen 325 Mg Tablet) 650 mg PO QID [facility] Last Admin: 07/21/21 12:54 Dose: 650 mg Documented by: Al Hydroxide/Mg Hydroxide (Magnesium Hydrox/Alum Hydrox 30 Ml Oral.Susp) 30 ml PO Q6H PRN PRN Reason: Heartburn/Nausea Bacitracin (Bacitracin Oint 14 Gm Tube) 1 appl TOPICAL BID [facility]; Protocol Last Admin: 07/21/21 10:22 Dose: Not Given Documented by: Cariprazine (Cariprazine Hcl 1.5 Mg Capsule) 1.5 mg PO DAILY [facility] Last Admin: 07/21/21 10:17 Dose: 1.5 mg Documented by: Clotrimazole (Clotrimazole 1 % Cream 15 Gm Tube) 1 appl TOPICAL BID [facility]; Protocol Stop: 07/25/21 11:59 Last Admin: 07/21/21 10:22 Dose: Not Given Documented by: Docusate Sodium (Docusate Sodium 100 Mg Capsule) 100 mg PO BID [facility] Last Admin: 07/21/21 10:17 Dose: 100 mg Documented by: Hydroxyzine HCl (Hydroxyzine Hcl 25 Mg Tablet) 25 mg PO Q6H PRN PRN Reason: Anxiety Last Admin: 07/18/21 22:11 Dose: 25 mg Documented by: Lidocaine (Lidocaine 4 % Patch Adh..Patch) 2 patch TRANSDERMA DAILY [facility]; Protocol Last Admin: 07/21/21 10:18 Dose: 2 patch Documented by: [place] Carbonate ([place] Carbonate Er 300 Mg Tablet.Er) 300 mg PO BID [facility] Last Admin: 07/21/21 10:18 Dose: 300 mg Documented by: Lorazepam (Lorazepam 0.5 Mg Tablet) 0.5 mg PO Q4H PRN PRN Reason: Anxiety Last Admin: 07/20/21 21:02 Dose: 0.5 mg Documented by: Magnesium Hydroxide (Milk Of Magnesia 30 Ml Oral.Susp) 30 ml PO DAILY PRN PRN Reason: Constipation Propranolol HCl (Propranolol Hcl 20 Mg Tablet) 20 mg PO QID PRN; Protocol PRN Reason: tremor Senna (Sennosides 8.6 Mg Tablet) 8.6 mg PO BID [facility] Last Admin: 07/21/21 10:17 Dose: 8.6 mg Documented by: Trazodone HCl (Trazodone Hcl 50 Mg Tablet) 50 mg PO BEDTIME PRN PRN Reason: Insomnia Last Admin: 07/19/21 21:45 Dose: 50 mg Documented by: Trolamine Salicylate/Aloe Vera (Trolamine Salicylate 10%/Aloe Cream 35.4 Gm) 1 appl TOPICAL QID PRN PRN Reason: Pain, Mild (Pain Scale 1-3) Last Admin: 07/19/21 09:20 Dose: 1 appl Documented by: Allergies Allergies Allergy/AdvReac Type Severity Reaction Status Date / Time No Known Allergies Allergy Verified 09/13/20 14:47 Assessment & Plan Assessment & Plan (1) Bipolar II disorder, severe, depressed, with anxious distress: Status: Acute Code(s): F31.81 - Bipolar II disorder (2) Preoperative cardiovascular examination: Status: Acute Code(s): Z01.810 - Encounter for preprocedural cardiovascular examination Assessment and Plan: 56 yo F admitted to the inpatient psych unit. Medical re-consult for evaluation of rash + shoulder pain + pre-operative evaluation for ECT. 1. Suspected fungal rash (cuauhtemoc-vaginal, coccyx Clotrimazole BID for at least 1 week, may need to treat beyond that if not improved 2. Shoulder pain negative XR for fx/dislocation can try tylenol for pain can f/u outpatient with pcp/orthopedics if persists 3. Pre-operative evaluation for ECT Patient denies any CAD history. No recent labs or EKG in our system. Will check EKG. If routine labs not done at prior facility, would recommend checking them prior to ECT. If the EKG does not show any acute findings and labs do not show any significant abnormalities, she would need no further work up prior to ECT. Assessment and Plan: Patient is severely depressed anxious irritable with history of poor response versus noncompliance with medication.? Difficult to get a clear picture at this time agitated depression versus mixed state.? Past diagnosis of depression question bipolar to.? There is a family history of bipolar disorder and suicide.? Patient currently disability from her job.? Unable to engage at this time would and lorazepam for anxiety agitation best treatment for superficial laceration will try and discuss option of ECT will try and reach patient's therapist Patient may also be in withdrawal state and worsening symptoms unclear how long she has been off medications Monitor safety get additional history clarify diagnosis clarify medication history and response ? Patient remains depressed withdrawn apathetic agreeable to restart low-dose lithium Romeliaar will monitor carefully for side effects Complains of shoulder pain status post recent falls unclear patient was overusing medication or side effects from Depakote Latuda.? Denies loss of consciousness Thyroid B12 folate CBC chemistries unremarkable vitamin-D low LDL? increased lyme Ab NEG. medically cleared for ECT. ECT #1 planned for 07/21, then pt reversed herself again and stated she is not interested in ECT now. ativan and peopranolol PRNs for tremor, likely due to lithium. start vitamin D supplementation as of 07/21. I spent ___25___ minutes with the patient and/or on the patient floor today, greater than?50% of which was spent counseling/coordinating care. Reason for contiued inpatient stay Substantial Risk for: inability to function and rapid decompensation
[2021-07-21] MEDS: Cholecalciferol (Vitamin D3) 25 MCG TABLET PO (18:18)
[2021-07-21] MEDS: LORazepam 0.5 MG TABLET PO (21:40)
[2021-07-21 21:42] VITALS: BP 123/53; PULSE 68; TEMP 36.2; O2SAT 100
[2021-07-22] MEDS: LORazepam 0.5 MG TABLET PO ×3 (02:24→20:39)
[2021-07-22 06:00] VITALS: BP 128/61; PULSE 82; RESP 16; TEMP 36.3; O2SAT 99
[2021-07-22] MEDS: Docusate Sodium 100 MG CAPSULE PO (08:17)
[2021-07-22] MEDS: Cariprazine HCl 1.5 MG CAPSULE PO (08:17)
[2021-07-22] MEDS: Cholecalciferol (Vitamin D3) 25 MCG TABLET PO (08:17)
[2021-07-22] MEDS: Lithium Carbonate ER 300 MG TABLET.ER PO ×2 (08:17→20:39)
[2021-07-22] MEDS: Acetaminophen 325 MG TABLET 650 MG PO ×4 (08:17→20:39)
[2021-07-22] MEDS: Sennosides 8.6 MG TABLET PO (08:17)
[2021-07-22 08:47] LABS: Anion Gap 11 (12-20); Blood Urea Nitrogen 10 mg/dL (9-16); Calcium 10.1 mg/dL (8.4-10.2); Carbon Dioxide 26 mmol/L (22-29); Chloride 109 mmol/L (96-108); Creatinine Clr Calc Pharmacy 77.1; Estimated Glomerular Filt Rate > 60; Glucose Random 108 mg/dL (60-115); Potassium 3.8 mmol/L (3.3-5.1); Sodium 142 mmol/L (135-145)
[2021-07-22] MEDS: Clotrimazole 1 % Cream 15 GM TUBE 1 APPL TOPICAL (10:27)
--- NOTE | 2021-07-22 18:40 | HO.PSYCHPN ---
Subjective Subjective Date of Service: 07/22/21 Reason For Visit: major depressive d/o recurrent episode,moderate Interim History: pt states she continues to feel a bit better mood-otto. does c/o shoulder pain, asks that lidocaine patches be switched to HS, which is done. also asking for trial of other topical pain treatments, such as capsaicin. trial of capsaicin initiated today. no other complaints or requests. per staff, isolative, anx/dep. poor sleep due to peer's loud self-dialoguing most of the night. slept better with ear plugs. Mental Status Exam Mental Status Exam Narrative: appropriately dressed and groomed, cooperative with interview, mild PMR. speech somewhat slowed and sparse. thoughts linear and logical. affect brighter and more flexible, non-labile, appropriate to context, normo-intense. mood better. denies SI since 3rd day in hospital. no HI/AVH expressed. Diagnostics Vital Signs (24Hr): Vital Signs - 24 hr 07/21/21 21:42 07/22/21 06:00 Temperature 97.2 F 97.3 F Pulse Rate 68 82 Respiratory Rate 16 Blood Pressure 123/53 L 128/61 Pulse Oximetry 100 99 BMI result Body Mass Index 24.3 Labs Results: 07/19/21 07:27 07/22/21 07:58 Labs: Laboratory Results - last 48 hr 07/17/21 07/21/21 07/22/21 10:00 08:33 07:58 Sodium 142 Potassium 3.8 Chloride 109 H Carbon Dioxide 26 Anion Gap 11 L BUN 10 Creatinine 0.69 Estim Creat Clear Calc 77.1 Estimated GFR > 60 Random Glucose 108 Calcium 10.1 25-OH Vitamin D Total 15 L 25-Hydroxy Vitamin D2 <4 25-Hydroxy Vitamin D3 15 [place] 0.70 Imaging Radiology Impressions: ITS Impressions Shoulder X-Ray 07/17/21 19:53 IMPRESSION: No acute fractures or malalignment. Mild degenerative osteoarthritis. Shoulder X-Ray 07/17/21 19:53 IMPRESSION: No acute fractures or malalignment. Mild degenerative osteoarthritis. Head CT 07/20/21 14:43 IMPRESSION: No evidence of acute intracranial hemorrhage or edematous territorial infarction. Medications Medications Current Medications Acetaminophen (Acetaminophen 325 Mg Tablet) 650 mg PO QID [facility] Last Admin: 07/22/21 17:11 Dose: 650 mg Documented by: Al Hydroxide/Mg Hydroxide (Magnesium Hydrox/Alum Hydrox 30 Ml Oral.Susp) 30 ml PO Q6H PRN PRN Reason: Heartburn/Nausea Capsaicin (Capsaicin 0.025% Cream 60 Gm Tube) 1 appl TOPICAL QID PRN; Protocol PRN Reason: Pain, Moderate (Pain Scale 4-6 Cariprazine (Cariprazine Hcl 1.5 Mg Capsule) 1.5 mg PO DAILY [facility] Last Admin: 07/22/21 08:17 Dose: 1.5 mg Documented by: Clotrimazole (Clotrimazole 1 % Cream 15 Gm Tube) 1 appl TOPICAL BID [facility]; Protocol Stop: 07/25/21 11:59 Last Admin: 07/22/21 10:27 Dose: 1 appl Documented by: Docusate Sodium (Docusate Sodium 100 Mg Capsule) 100 mg PO BID [facility] Last Admin: 07/22/21 08:17 Dose: 100 mg Documented by: Hydroxyzine HCl (Hydroxyzine Hcl 25 Mg Tablet) 25 mg PO Q6H PRN PRN Reason: Anxiety Last Admin: 07/18/21 22:11 Dose: 25 mg Documented by: Lidocaine (Lidocaine 4 % Patch Adh..Patch) 2 patch TRANSDERMA BEDTIME [facility]; Protocol [place] Carbonate ([place] Carbonate Er 300 Mg Tablet.Er) 300 mg PO BID [facility] Last Admin: 07/22/21 08:17 Dose: 300 mg Documented by: Lorazepam (Lorazepam 0.5 Mg Tablet) 0.5 mg PO Q4H PRN PRN Reason: Anxiety Last Admin: 07/22/21 08:24 Dose: 0.5 mg Documented by: Magnesium Hydroxide (Milk Of Magnesia 30 Ml Oral.Susp) 30 ml PO DAILY PRN PRN Reason: Constipation Propranolol HCl (Propranolol Hcl 20 Mg Tablet) 20 mg PO QID PRN; Protocol PRN Reason: tremor Senna (Sennosides 8.6 Mg Tablet) 8.6 mg PO BID [facility] Last Admin: 07/22/21 08:17 Dose: 8.6 mg Documented by: Trazodone HCl (Trazodone Hcl 50 Mg Tablet) 50 mg PO BEDTIME PRN PRN Reason: Insomnia Last Admin: 07/19/21 21:45 Dose: 50 mg Documented by: Trolamine Salicylate/Aloe Vera (Trolamine Salicylate 10%/Aloe Cream 35.4 Gm) 1 appl TOPICAL QID PRN PRN Reason: Pain, Mild (Pain Scale 1-3) Last Admin: 07/19/21 09:20 Dose: 1 appl Documented by: Vitamin D (Cholecalciferol (Vitamin D3) 25 Mcg Tablet) 25 mcg PO DAILY [facility] Last Admin: 07/22/21 08:17 Dose: 25 mcg Documented by: Allergies Allergies Allergy/AdvReac Type Severity Reaction Status Date / Time No Known Allergies Allergy Verified 09/13/20 14:47 Assessment & Plan Assessment & Plan (1) Bipolar II disorder, severe, depressed, with anxious distress: Status: Acute Code(s): F31.81 - Bipolar II disorder (2) Preoperative cardiovascular examination: Status: Acute Code(s): Z01.810 - Encounter for preprocedural cardiovascular examination Assessment and Plan: 56 yo F admitted to the inpatient psych unit. Medical re-consult for evaluation of rash + shoulder pain + pre-operative evaluation for ECT. 1. Suspected fungal rash (cuauhtemoc-vaginal, coccyx Clotrimazole BID for at least 1 week, may need to treat beyond that if not improved 2. Shoulder pain negative XR for fx/dislocation can try tylenol for pain can f/u outpatient with pcp/orthopedics if persists 3. Pre-operative evaluation for ECT Patient denies any CAD history. No recent labs or EKG in our system. Will check EKG. If routine labs not done at prior facility, would recommend checking them prior to ECT. If the EKG does not show any acute findings and labs do not show any significant abnormalities, she would need no further work up prior to ECT. Assessment and Plan: Patient is severely depressed anxious irritable with history of poor response versus noncompliance with medication.? Difficult to get a clear picture at this time agitated depression versus mixed state.? Past diagnosis of depression question bipolar to.? There is a family history of bipolar disorder and suicide.? Patient currently disability from her job.? Unable to engage at this time would and lorazepam for anxiety agitation best treatment for superficial laceration will try and discuss option of ECT will try and reach patient's therapist Patient may also be in withdrawal state and worsening symptoms unclear how long she has been off medications Monitor safety get additional history clarify diagnosis clarify medication history and response ? Patient remains depressed withdrawn apathetic agreeable to restart low-dose lithium Romeliaar will monitor carefully for side effects Complains of shoulder pain status post recent falls unclear patient was overusing medication or side effects from Depakote Latuda.? Denies loss of consciousness Thyroid B12 folate CBC chemistries unremarkable vitamin-D low LDL? increased lyme Ab NEG. medically cleared for ECT. ECT #1 planned for 07/21, then pt reversed herself again and stated she is not interested in ECT now. ativan and propranolol PRNs for tremor, likely due to lithium. start vitamin D supplementation as of 07/21. I spent minutes with the patient and/or on the patient floor today, greater than?50% of which was spent counseling/coordinating care. Reason for contiued inpatient stay Substantial Risk for: inability to function and rapid decompensation
[2021-07-22] MEDS: Lidocaine 4 % Patch ADH..PATCH 2 PATCH TRANSDERMA (20:40)
[2021-07-22 20:47] VITALS: BP 123/58; PULSE 80; TEMP 36.2; O2SAT 98
[2021-07-23 06:00] VITALS: BP 105/54; PULSE 70; RESP 16; TEMP 36.4; O2SAT 98
[2021-07-23] MEDS: Acetaminophen 325 MG TABLET 650 MG PO ×4 (08:23→20:52)
[2021-07-23] MEDS: Cariprazine HCl 1.5 MG CAPSULE PO (08:25)
[2021-07-23] MEDS: Lithium Carbonate ER 300 MG TABLET.ER PO ×2 (08:25→20:52)
[2021-07-23] MEDS: Cholecalciferol (Vitamin D3) 25 MCG TABLET PO (08:25)
[2021-07-23] MEDS: Clotrimazole 1 % Cream 15 GM TUBE 1 APPL TOPICAL ×2 (08:28→20:52)
[2021-07-23] MEDS: Capsaicin 0.025% Cream 60 GM TUBE 1 APPL TOPICAL (08:28)
--- NOTE | 2021-07-23 17:59 | HO.PSYCHPN ---
Subjective Subjective Date of Service: 07/23/21 Reason For Visit: major depressive d/o recurrent episode,moderate Interim History: pt reports she is feeling clearer, her mood is better, and she notices she has been laughing. she would like to discharge saturday. discuss her shoulder pain complaints. she will F/U with her PCP. capsaicin cream was helpful and she will continue to use that while she is here. per staff, got ativan last pm. slept until 6:45. tearful re 10/10 shoulder pain for which nothing seems to work. Mental Status Exam Mental Status Exam Narrative: appropriately dressed and groomed, cooperative with interview, mild PMR. speech nml mount and speed. thoughts linear and logical. affect brighter and more flexible, non-labile, appropriate to context, normo-intense. mood better. denies SI since 3rd day in hospital. no HI/AVH expressed. Diagnostics Vital Signs (24Hr): Vital Signs - 24 hr 07/22/21 20:47 07/23/21 06:00 Temperature 97.2 F 97.6 F Pulse Rate 80 70 Respiratory Rate 16 Blood Pressure 123/58 L 105/54 L Pulse Oximetry 98 98 BMI result Body Mass Index 24.3 Labs Results: 07/19/21 07:27 07/22/21 07:58 Labs: Laboratory Results - last 48 hr 07/22/21 07:58 Sodium 142 Potassium 3.8 Chloride 109 H Carbon Dioxide 26 Anion Gap 11 L BUN 10 Creatinine 0.69 Estim Creat Clear Calc 77.1 Estimated GFR > 60 Random Glucose 108 Calcium 10.1 Imaging Radiology Impressions: ITS Impressions Shoulder X-Ray 07/17/21 19:53 IMPRESSION: No acute fractures or malalignment. Mild degenerative osteoarthritis. Shoulder X-Ray 07/17/21 19:53 IMPRESSION: No acute fractures or malalignment. Mild degenerative osteoarthritis. Head CT 07/20/21 14:43 IMPRESSION: No evidence of acute intracranial hemorrhage or edematous territorial infarction. Medications Medications Current Medications Acetaminophen (Acetaminophen 325 Mg Tablet) 650 mg PO QID PATSY Last Admin: 07/23/21 17:57 Dose: 650 mg Documented by: Al Hydroxide/Mg Hydroxide (Magnesium Hydrox/Alum Hydrox 30 Ml Oral.Susp) 30 ml PO Q6H PRN PRN Reason: Heartburn/Nausea Capsaicin (Capsaicin 0.025% Cream 60 Gm Tube) 1 appl TOPICAL QID PRN; Protocol PRN Reason: shoulder pain Cariprazine (Cariprazine Hcl 1.5 Mg Capsule) 1.5 mg PO DAILY [facility] Last Admin: 07/23/21 08:25 Dose: 1.5 mg Documented by: Clotrimazole (Clotrimazole 1 % Cream 15 Gm Tube) 1 appl TOPICAL BID [facility]; Protocol Stop: 07/25/21 11:59 Last Admin: 07/23/21 08:28 Dose: 1 appl Documented by: Docusate Sodium (Docusate Sodium 100 Mg Capsule) 100 mg PO BID PRN PRN Reason: constipation Hydroxyzine HCl (Hydroxyzine Hcl 25 Mg Tablet) 25 mg PO Q6H PRN PRN Reason: Anxiety Last Admin: 07/18/21 22:11 Dose: 25 mg Documented by: Lidocaine (Lidocaine 4 % Patch Adh..Patch) 2 patch TRANSDERMA BEDTIME [facility]; Protocol Last Admin: 07/22/21 20:40 Dose: 2 patch Documented by: [place] Carbonate ([place] Carbonate Er 300 Mg Tablet.Er) 300 mg PO BID [facility] Last Admin: 07/23/21 08:25 Dose: 300 mg Documented by: Magnesium Hydroxide (Milk Of Magnesia 30 Ml Oral.Susp) 30 ml PO DAILY PRN PRN Reason: Constipation Propranolol HCl (Propranolol Hcl 20 Mg Tablet) 20 mg PO QID PRN; Protocol PRN Reason: tremor Senna (Sennosides 8.6 Mg Tablet) 8.6 mg PO BID PRN PRN Reason: constipation Trazodone HCl (Trazodone Hcl 50 Mg Tablet) 50 mg PO BEDTIME PRN PRN Reason: Insomnia Last Admin: 07/19/21 21:45 Dose: 50 mg Documented by: Trolamine Salicylate/Aloe Vera (Trolamine Salicylate 10%/Aloe Cream 35.4 Gm) 1 appl TOPICAL QID PRN PRN Reason: Pain, Mild (Pain Scale 1-3) Last Admin: 07/19/21 09:20 Dose: 1 appl Documented by: Vitamin D (Cholecalciferol (Vitamin D3) 25 Mcg Tablet) 25 mcg PO DAILY [facility] Last Admin: 07/23/21 08:25 Dose: 25 mcg Documented by: Allergies Allergies Allergy/AdvReac Type Severity Reaction Status Date / Time No Known Allergies Allergy Verified 09/13/20 14:47 Assessment & Plan Assessment & Plan (1) Bipolar II disorder, severe, depressed, with anxious distress: Status: Acute Code(s): F31.81 - Bipolar II disorder (2) Preoperative cardiovascular examination: Status: Acute Code(s): Z01.810 - Encounter for preprocedural cardiovascular examination Assessment and Plan: 56 yo F admitted to the inpatient psych unit. Medical re-consult for evaluation of rash + shoulder pain + pre-operative evaluation for ECT. 1. Suspected fungal rash (cuauhtemoc-vaginal, coccyx Clotrimazole BID for at least 1 week, may need to treat beyond that if not improved 2. Shoulder pain negative XR for fx/dislocation can try tylenol for pain can f/u outpatient with pcp/orthopedics if persists 3. Pre-operative evaluation for ECT Patient denies any CAD history. No recent labs or EKG in our system. Will check EKG. If routine labs not done at prior facility, would recommend checking them prior to ECT. If the EKG does not show any acute findings and labs do not show any significant abnormalities, she would need no further work up prior to ECT. Assessment and Plan: Patient is severely depressed anxious irritable with history of poor response versus noncompliance with medication.? Difficult to get a clear picture at this time agitated depression versus mixed state.? Past diagnosis of depression question bipolar to.? There is a family history of bipolar disorder and suicide.? Patient currently disability from her job.? Unable to engage at this time would and lorazepam for anxiety agitation best treatment for superficial laceration will try and discuss option of ECT will try and reach patient's therapist Patient may also be in withdrawal state and worsening symptoms unclear how long she has been off medications Monitor safety get additional history clarify diagnosis clarify medication history and response ? Patient remains depressed withdrawn apathetic agreeable to restart low-dose lithium Vryalar will monitor carefully for side effects Complains of shoulder pain status post recent falls unclear patient was overusing medication or side effects from Depakote Latuda.? Denies loss of consciousness Thyroid B12 folate CBC chemistries unremarkable vitamin-D low LDL? increased lyme Ab NEG. medically cleared for ECT. ECT #1 planned for 07/21, then pt reversed herself again and stated she is not interested in ECT now. ativan and propranolol PRNs for tremor, likely due to lithium. start vitamin D supplementation as of 07/21. capsaicin cream somewhat effective for shoulder pain. planning to discharge jul 25. I spent minutes with the patient and/or on the patient floor today, greater than?50% of which was spent counseling/coordinating care. Reason for contiued inpatient stay Substantial Risk for: inability to function and rapid decompensation
[2021-07-23] MEDS: LORazepam 0.5 MG TABLET PO (20:27)
[2021-07-23] MEDS: Lidocaine 4 % Patch ADH..PATCH 2 PATCH TRANSDERMA (20:51)
[2021-07-23 21:10] VITALS: BP 105/68; PULSE 70; RESP 16; TEMP 36.6; O2SAT 98
[2021-07-24 08:00] VITALS: BP 114/55; PULSE 64; TEMP 36.2; O2SAT 98
[2021-07-24] MEDS: Acetaminophen 325 MG TABLET 650 MG PO ×3 (09:21→20:41)
[2021-07-24] MEDS: Cholecalciferol (Vitamin D3) 25 MCG TABLET PO (09:22)
[2021-07-24] MEDS: Cariprazine HCl 1.5 MG CAPSULE PO (09:22)
[2021-07-24] MEDS: Lithium Carbonate ER 300 MG TABLET.ER PO ×2 (09:22→20:41)
[2021-07-24] MEDS: LORazepam 0.5 MG TABLET PO (09:22)
[2021-07-24] MEDS: Clotrimazole 1 % Cream 15 GM TUBE 1 APPL TOPICAL ×2 (09:24→20:42)
--- NOTE | 2021-07-24 14:51 | HO.PSYCHPN ---
Subjective Subjective Date of Service: 07/24/21 Reason For Visit: major depressive d/o recurrent episode,moderate Interim History: continues to feel well and interested in discharge tomorrow. her insurance situation was discussed and she is amenable to remaining here a bit longer if it results in her ability to have aftercare and to afford this hospitalization. agreeable to schedule propranolol for tremor. per staff, slept 7 hours overnight. c/o shoulder pain. attending groups. eating well. had a good day yesterday, less anxiety and depression. Mental Status Exam Mental Status Exam Narrative: appropriately dressed and groomed, cooperative with interview, mild PMR. speech nml mount and speed. thoughts linear and logical. affect brighter and more flexible, non-labile, appropriate to context, normo-intense. mood better. denies SI since 3rd day in hospital. no HI/AVH expressed. Diagnostics Vital Signs (24Hr): Vital Signs - 24 hr 07/23/21 21:10 07/24/21 08:00 Temperature 97.9 F 97.2 F Pulse Rate 70 64 Respiratory Rate 16 Blood Pressure 105/68 114/55 L Pulse Oximetry 98 98 BMI result Body Mass Index 24.3 Labs Results: 07/19/21 07:27 07/22/21 07:58 Imaging Radiology Impressions: ITS Impressions Shoulder X-Ray 07/17/21 19:53 IMPRESSION: No acute fractures or malalignment. Mild degenerative osteoarthritis. Shoulder X-Ray 07/17/21 19:53 IMPRESSION: No acute fractures or malalignment. Mild degenerative osteoarthritis. Head CT 07/20/21 14:43 IMPRESSION: No evidence of acute intracranial hemorrhage or edematous territorial infarction. Medications Medications Current Medications Acetaminophen (Acetaminophen 325 Mg Tablet) 650 mg PO QID [facility] Last Admin: 07/24/21 12:05 Dose: 650 mg Documented by: Al Hydroxide/Mg Hydroxide (Magnesium Hydrox/Alum Hydrox 30 Ml Oral.Susp) 30 ml PO Q6H PRN PRN Reason: Heartburn/Nausea Capsaicin (Capsaicin 0.025% Cream 60 Gm Tube) 1 appl TOPICAL QID PRN; Protocol PRN Reason: shoulder pain Cariprazine (Cariprazine Hcl 1.5 Mg Capsule) 1.5 mg PO DAILY [facility] Last Admin: 07/24/21 09:22 Dose: 1.5 mg Documented by: Clotrimazole (Clotrimazole 1 % Cream 15 Gm Tube) 1 appl TOPICAL BID [facility]; Protocol Stop: 07/25/21 11:59 Last Admin: 07/24/21 09:24 Dose: 1 appl Documented by: Docusate Sodium (Docusate Sodium 100 Mg Capsule) 100 mg PO BID PRN PRN Reason: constipation Hydroxyzine HCl (Hydroxyzine Hcl 25 Mg Tablet) 25 mg PO Q6H PRN PRN Reason: Anxiety Last Admin: 07/18/21 22:11 Dose: 25 mg Documented by: Lidocaine (Lidocaine 4 % Patch Adh..Patch) 2 patch TRANSDERMA BEDTIME [facility]; Protocol Last Admin: 07/23/21 20:51 Dose: 2 patch Documented by: [place] Carbonate ([place] Carbonate Er 300 Mg Tablet.Er) 300 mg PO BID [facility] Last Admin: 07/24/21 09:22 Dose: 300 mg Documented by: Lorazepam (Lorazepam 0.5 Mg Tablet) 0.5 mg PO Q4H PRN PRN Reason: anxiety/restlessness Last Admin: 07/24/21 09:22 Dose: 0.5 mg Documented by: Magnesium Hydroxide (Milk Of Magnesia 30 Ml Oral.Susp) 30 ml PO DAILY PRN PRN Reason: Constipation Propranolol HCl (Propranolol Hcl 10 Mg Tablet) 10 mg PO QID PRN; Protocol PRN Reason: tremor Propranolol HCl (Propranolol Hcl 10 Mg Tablet) 10 mg PO BID [facility]; Protocol Senna (Sennosides 8.6 Mg Tablet) 8.6 mg PO BID PRN PRN Reason: constipation Trazodone HCl (Trazodone Hcl 50 Mg Tablet) 50 mg PO BEDTIME PRN PRN Reason: Insomnia Last Admin: 07/19/21 21:45 Dose: 50 mg Documented by: Trolamine Salicylate/Aloe Vera (Trolamine Salicylate 10%/Aloe Cream 35.4 Gm) 1 appl TOPICAL QID PRN PRN Reason: Pain, Mild (Pain Scale 1-3) Last Admin: 07/19/21 09:20 Dose: 1 appl Documented by: Vitamin D (Cholecalciferol (Vitamin D3) 25 Mcg Tablet) 25 mcg PO DAILY [facility] Last Admin: 07/24/21 09:22 Dose: 25 mcg Documented by: Allergies Allergies Allergy/AdvReac Type Severity Reaction Status Date / Time No Known Allergies Allergy Verified 03/02/21 14:47 Assessment & Plan Assessment & Plan (1) Bipolar II disorder, severe, depressed, with anxious distress: Status: Acute Code(s): F31.81 - Bipolar II disorder (2) Preoperative cardiovascular examination: Status: Acute Code(s): Z01.810 - Encounter for preprocedural cardiovascular examination Assessment and Plan: 56 yo F admitted to the inpatient psych unit. Medical re-consult for evaluation of rash + shoulder pain + pre-operative evaluation for ECT. 1. Suspected fungal rash (cuauhtemoc-vaginal, coccyx Clotrimazole BID for at least 1 week, may need to treat beyond that if not improved 2. Shoulder pain negative XR for fx/dislocation can try tylenol for pain can f/u outpatient with pcp/orthopedics if persists 3. Pre-operative evaluation for ECT Patient denies any CAD history. No recent labs or EKG in our system. Will check EKG. If routine labs not done at prior facility, would recommend checking them prior to ECT. If the EKG does not show any acute findings and labs do not show any significant abnormalities, she would need no further work up prior to ECT. Assessment and Plan: Patient is severely depressed anxious irritable with history of poor response versus noncompliance with medication.? Difficult to get a clear picture at this time agitated depression versus mixed state.? Past diagnosis of depression question bipolar to.? There is a family history of bipolar disorder and suicide.? Patient currently disability from her job.? Unable to engage at this time would and lorazepam for anxiety agitation best treatment for superficial laceration will try and discuss option of ECT will try and reach patient's therapist Patient may also be in withdrawal state and worsening symptoms unclear how long she has been off medications Monitor safety get additional history clarify diagnosis clarify medication history and response ? Patient remains depressed withdrawn apathetic agreeable to restart low-dose lithium Vryalar will monitor carefully for side effects Complains of shoulder pain status post recent falls unclear patient was overusing medication or side effects from Depakote Latuda.? Denies loss of consciousness Thyroid B12 folate CBC chemistries unremarkable vitamin-D low LDL? increased lyme Ab NEG. medically cleared for ECT. ECT #1 planned for 07/21, then pt reversed herself again and stated she is not interested in ECT now. ativan and propranolol PRNs for tremor, likely due to lithium. start vitamin D supplementation as of 07/21. capsaicin cream somewhat effective for shoulder pain. planning to discharge jul 25 or . I spent minutes with the patient and/or on the patient floor today, greater than?50% of which was spent counseling/coordinating care. Reason for contiued inpatient stay Substantial Risk for: harm to self and inability to function
--- NOTE | 2021-07-24 15:13 | MHC.CLN ---
F/U PATIENT APPEARS TO BE EATING WELL. NO NEW NUTRITION INTERVENTIONS AT THIS TIME.
[2021-07-24] MEDS: Propranolol HCL 10 MG TABLET PO ×2 (15:46→20:42)
[2021-07-24 20:40] VITALS: BP 107/60; PULSE 78; RESP 18; TEMP 36.9; O2SAT 96
[2021-07-24] MEDS: Docusate Sodium 100 MG CAPSULE PO (20:41)
[2021-07-25] MEDS: hydrOXYzine HCL 25 MG TABLET PO (06:32)
[2021-07-25 09:50] VITALS: BP 100/65; PULSE 86; RESP 18; TEMP 36.3; O2SAT 99
[2021-07-25] MEDS: Propranolol HCL 10 MG TABLET PO (09:52)
[2021-07-25] MEDS: Cariprazine HCl 1.5 MG CAPSULE PO (09:52)
[2021-07-25] MEDS: Cholecalciferol (Vitamin D3) 25 MCG TABLET PO (09:52)
[2021-07-25] MEDS: Lithium Carbonate ER 300 MG TABLET.ER PO ×2 (09:52→21:16)
[2021-07-25] MEDS: Acetaminophen 325 MG TABLET 650 MG PO ×4 (09:52→20:59)
[2021-07-25 18:00] VITALS: BP 109/51; PULSE 62; RESP 16; TEMP 36.3; O2SAT 97
[2021-07-25] MEDS: Lidocaine 4 % Patch ADH..PATCH 2 PATCH TRANSDERMA (20:58)
[2021-07-26] MEDS: Cholecalciferol (Vitamin D3) 25 MCG TABLET PO (08:03)
[2021-07-26] MEDS: Acetaminophen 325 MG TABLET 650 MG PO (08:03)
[2021-07-26] MEDS: Lithium Carbonate ER 300 MG TABLET.ER PO (08:03)
[2021-07-26] MEDS: LORazepam 0.5 MG TABLET PO (08:03)
[2021-07-26] MEDS: Cariprazine HCl 1.5 MG CAPSULE PO (08:03)
[2021-07-26 08:48] VITALS: BP 101/50; PULSE 65; RESP 16; TEMP 36.4; O2SAT 99
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
--- NOTE | 2021-07-26 12:04 | PC.NURSE ---
PT ready and aware of discharge. PT denies SI/HI, reported minimal anxiety and denied depression. Pt with bright affect and future focused. Pt aware of follow up appointments. Discharge instructions discussed, all questions answered. Belongings returned. PT ambulated off unit with steady gait.
--- NOTE | 2021-08-30 13:12 | P.PNPSI_ITS ---
Subjective Subjective Date of Service: 07/25/21 Reason For Visit: major depressive d/o recurrent episode,moderate Interim History: pt reports she is ready to discharge tomorrow, whatever her insurance status. asking to speak with ziggy LAWRENCE re insurance again. labs reviewed, recent lithium level WNL. shoulder pain ongoing. decides to DC scheduled propranolol. had PRN of it this morning, though, and feels it does help with the tremor. no other notable events or behaviors. per staff, quiet, visible. no SI, med-compliant. refusing scheduled propranolol, took PRN. refused lidocaine patches yesterday due to lack of efficacy. got atarax at 0635 today for anxiety. poor sleep overnight. Mental Status Exam Mental Status Exam Narrative: appropriately dressed and groomed, cooperative with interview, mild PMR. speech nml mount and speed. thoughts linear and logical. affect brighter and more flexible, non-labile, appropriate to context, normo-intense. denies SI since 3rd day in hospital. no HI/AVH expressed. Diagnostics Vital Signs (24Hr): Vital Signs - 24 hr 07/24/21 20:40 07/25/21 09:50 Temperature 98.4 F 97.3 F Pulse Rate 78 86 Respiratory Rate 18 18 Blood Pressure 107/60 100/65 Pulse Oximetry 96 99 BMI result Body Mass Index 24.3 Labs Results: 07/19/21 07:27 07/22/21 07:58 Imaging Radiology Impressions: ITS Impressions Shoulder X-Ray 07/17/21 19:53 IMPRESSION: No acute fractures or malalignment. Mild degenerative osteoarthritis. Shoulder X-Ray 07/17/21 19:53 IMPRESSION: No acute fractures or malalignment. Mild degenerative osteoarthritis. Head CT 07/20/21 14:43 IMPRESSION: No evidence of acute intracranial hemorrhage or edematous territorial infarction. Medications Medications Current Medications Acetaminophen (Acetaminophen 325 Mg Tablet) 650 mg PO QID [facility] Last Admin: 07/25/21 13:53 Dose: 650 mg Documented by: Al Hydroxide/Mg Hydroxide (Magnesium Hydrox/Alum Hydrox 30 Ml Oral.Susp) 30 ml PO Q6H PRN PRN Reason: Heartburn/Nausea Capsaicin (Capsaicin 0.025% Cream 60 Gm Tube) 1 appl TOPICAL QID PRN; Protocol PRN Reason: shoulder pain Cariprazine (Cariprazine Hcl 1.5 Mg Capsule) 1.5 mg PO DAILY [facility] Last Admin: 07/25/21 09:52 Dose: 1.5 mg Documented by: Docusate Sodium (Docusate Sodium 100 Mg Capsule) 100 mg PO BID PRN PRN Reason: constipation Last Admin: 07/24/21 20:41 Dose: 100 mg Documented by: Hydroxyzine HCl (Hydroxyzine Hcl 25 Mg Tablet) 25 mg PO Q6H PRN PRN Reason: Anxiety Last Admin: 07/25/21 06:32 Dose: 25 mg Documented by: Lidocaine (Lidocaine 4 % Patch Adh..Patch) 2 patch TRANSDERMA BEDTIME [facility]; Protocol Last Admin: 07/24/21 20:47 Dose: Not Given Documented by: [place] Carbonate ([place] Carbonate Er 300 Mg Tablet.Er) 300 mg PO BID [facility] Last Admin: 07/25/21 09:52 Dose: 300 mg Documented by: Lorazepam (Lorazepam 0.5 Mg Tablet) 0.5 mg PO Q4H PRN PRN Reason: anxiety/restlessness Last Admin: 07/24/21 09:22 Dose: 0.5 mg Documented by: Magnesium Hydroxide (Milk Of Magnesia 30 Ml Oral.Susp) 30 ml PO DAILY PRN PRN Reason: Constipation Propranolol HCl (Propranolol Hcl 10 Mg Tablet) 10 mg PO QID PRN; Protocol PRN Reason: tremor Last Admin: 07/24/21 15:46 Dose: 10 mg Documented by: Senna (Sennosides 8.6 Mg Tablet) 8.6 mg PO BID PRN PRN Reason: constipation Trazodone HCl (Trazodone Hcl 50 Mg Tablet) 50 mg PO BEDTIME PRN PRN Reason: Insomnia Last Admin: 07/19/21 21:45 Dose: 50 mg Documented by: Trolamine Salicylate/Aloe Vera (Trolamine Salicylate 10%/Aloe Cream 35.4 Gm) 1 appl TOPICAL QID PRN PRN Reason: Pain, Mild (Pain Scale 1-3) Last Admin: 07/19/21 09:20 Dose: 1 appl Documented by: Vitamin D (Cholecalciferol (Vitamin D3) 25 Mcg Tablet) 25 mcg PO DAILY [facility] Last Admin: 07/25/21 09:52 Dose: 25 mcg Documented by: Allergies Allergies Allergy/AdvReac Type Severity Reaction Status Date / Time No Known Allergies Allergy Verified 09/13/20 14:47 Assessment & Plan Assessment & Plan (1) Bipolar II disorder, severe, depressed, with anxious distress: Status: Acute Code(s): F31.81 - Bipolar II disorder (2) Preoperative cardiovascular examination: Status: Acute Code(s): Z01.810 - Encounter for preprocedural cardiovascular examination Assessment and Plan: 56 yo F admitted to the inpatient psych unit. Medical re-consult for evaluation of rash + shoulder pain + pre-operative evaluation for ECT. 1. Suspected fungal rash (cuauhtemoc-vaginal, coccyx Clotrimazole BID for at least 1 week, may need to treat beyond that if not improved 2. Shoulder pain negative XR for fx/dislocation can try tylenol for pain can f/u outpatient with pcp/orthopedics if persists 3. Pre-operative evaluation for ECT Patient denies any CAD history. No recent labs or EKG in our system. Will check EKG. If routine labs not done at prior facility, would recommend checking them prior to ECT. If the EKG does not show any acute findings and labs do not show any significant abnormalities, she would need no further work up prior to ECT. Assessment and Plan: Patient is severely depressed anxious irritable with history of poor response versus noncompliance with medication.? Difficult to get a clear picture at this time agitated depression versus mixed state.? Past diagnosis of depression que stion bipolar to.? There is a family history of bipolar disorder and suicide.? Patient currently disability from her job.? Unable to engage at this time would and lorazepam for anxiety agitation best treatment for superficial laceration will try and discuss option of ECT will try and reach patient's therapist Patient may also be in withdrawal state and worsening symptoms unclear how long she has been off medications Monitor safety get additional history clarify diagnosis clarify medication histo ry and response ? Patient remains depressed withdrawn apathetic agreeable to restart low-dose lithium Vryalar will monitor carefully for side effects Complains of shoulder pain status post recent falls unclear patient was overusing medication or side effects from Depakote Latuda.? Denies loss of con sciousness Thyroid B12 folate CBC chemistries unremarkable vitamin-D low LDL? increased lyme Ab NEG. medically cleared for ECT. ECT #1 planned for 07/21, then pt reversed herself again and stated she is not interested in ECT now. ativan and propranolol PRNs for tremor, likely due to lithium. start vitamin D supplementation as of 07/21. capsaicin cream somewhat effective for shoulder pain. planning to discharge jul 26. I spent minutes with the patient and/or on the patient floor today, greater than?50% of which was spent counseling/coordinating care. Reason for contiued inpatient stay Substantial Risk for: inability to function and rapid decompensation
== END 2021-07-26 12:04 | disposition home or self-care (01) | DRG 885 ==
PROVIDERS: Psychiatry & Neurology Psychiatry; Registered Nurse; Admitting Provider Psychiatry & Neurology Psychiatry; PCP Nurse Practitioner; Visit Provider Psychiatry & Neurology Psychiatry
DX: F31.81 Bipolar II disorder (principal); B36.9 Superficial mycosis, unspecified; Z20.822 Contact with and (suspected) exposure to COVID-19; Z79.899 Other long term (current) drug therapy
CPT/HCPCS: 36415; 70450; 73030; 80048; 80053; 80061; 80178; 80307; 82306; 82550; 82607; 82746; 83036; 83735; 84439; 84443; 85025; 86141; 86617; 86618; 86780; 87635; 93005